=== PATIENT | male | born 1950 | race Caucasian/White ===

== ENCOUNTER 2017-08-27 13:28 | Emergency (ER) | payer OTHER, SELFPAY ==
[2017-08-27] VITALS (10 sets, daily range): BP systolic 119–150; BP diastolic 64–81; PULSE 62–68; RESP 12–18; TEMP 36.3; O2SAT 93–99; BMI 30.4
--- NOTE | 2017-08-27 13:53 | CT_ITS ---
STUDY: CT BRAIN WITHOUT CONTRAST REASON FOR EXAM: Male, 66 years old. One episode of transient global amnesia. History of hypertension. RADIATION DOSAGE (If Supplied By Facility): CTDIvol = ( 44.99 ) mGy, DLP = ( 812.98 ) mGycm TECHNIQUE: Transaxial CT imaging of the brain was performed without administration of intravenous contrast material. Individualized dose optimization techniques were used for this CT. COMPARISON: None. FINDINGS: Normal soft tissue structures. Normal calvarium. There is a 9 mm, ovoid, focus of CSF isoattenuation in the right posterior frontoparietal lobe adjacent to the lateral ventricle that appears most compatible with chronic lacunar infarct. Normal size ventricles and extra-axial spaces for the patient's age. Normal white matter tracts of the cerebral hemispheres. Normal basal ganglia and thalami. Normal brainstem. Normal cerebellum. There is no intracranial hemorrhage. There is no large vessel territory ischemia/edema. Normal visualized paranasal sinuses. CT/Brain/Head without Contrast IMPRESSION: No CT evident acute intracranial pathology. Electronically Signed: Isaias Bueno MD at 15:13 EDT , Service support ,
--- NOTE | 2017-08-27 13:53 | RAD_ITS ---
STUDY: X-RAY CHEST REASON FOR EXAM: Male, 66 years old. There are symptoms. No chest complaints. TECHNIQUE: Single AP chest. COMPARISON: None. FINDINGS: There are small foci of bibasilar mixed interstitial and alveolar opacification. There is no pleural effusion. There is no pneumothorax. Normal size heart. Normal mediastinum and michelle. Normal visualized pulmonary arteries. Normal visualized aortic arch and descending thoracic aorta. There is no evident acute osseous abnormality. There is no demonstrated abnormality of the visualized soft tissue structures of the upper abdomen. RAD/Chest 1 View IMPRESSION: Bibasilar atelectasis versus bronchovascular crowding secondary to small lung volumes. Electronically Signed: Isaias Bueno MD at 14:16 EDT , Service support ,
--- NOTE | 2017-08-27 13:53 | EKG12_ITS ---
Test Reason : NEURO Blood Pressure : / mmHG Vent. Rate : 061 BPM Atrial Rate : 061 BPM P-R Int : 178 ms QRS Dur : 090 ms QT Int : 424 ms P-R-T Axes : 058 -04 -15 degrees QTc Int : 426 ms Sinus rhythm with occasional Premature ventricular complexes Inferior infarct , age undetermined Abnormal ECG Confirmed by VINCE ANAYA ([id number]), tape editor CONSTANZA GIRARD ([id number]) on 08/31/2017 3:58:43 PM Referred By: ADELITA Confirmed By:VINCE ANAYA
[2017-08-27 14:28] LABS: Absolute Lymphocyte Count 1.11 X10^3/ul (0.83-4.51); Absolute Neutrophil Count 5.6 X10^3/uL (2.0-7.7); Basophil# 0.03 X10^3/uL; Basophil% 0.4 % (0-1); Eosinophil# 0.16 X10^3/uL; Eosinophils% 2.1 % (0-5); Hematocrit 51.5 % (40-54); Hemoglobin 17.3 g/dl (13.0-16.5); Lymphocyte # 1.11 X10^3/ul (4.0); Lymphocyte % 14.4 % (19-41); Mean Corp Hgb Conc 33.6 g/gl (32-36); Mean Corpuscular Hgb 31.9 pg (27.0-32.0); Mean Platelet Vol. 10.2 fl (6.2-12.0); Monocyte# 0.77 X10^3/uL; Neutrophil # 5.63 X10^3/uL (2.7-7.7); Neutrophil % 72.8 % (47-70); Platelet Count 194 K/mm3 (150-450); RBC Distribution Width SD 44.5 fl (35.1-43.9); Red Blood Count 5.42 M/mm3 (4.6-6.2); White Blood Count 7.7 K/mm3 (4.4-11.0)
[2017-08-27 14:29] LABS: Partial Thromboplast Time 26.5 Seconds (24.1-36.2); Prothrombin Time (Protime)PT. 13.2 SECONDS (11.7-14.9)
[2017-08-27 14:30] LABS: POSITIVE COUNT NO; POSITIVE DIFFERENTIAL NO; POSITIVE MORPHOLOGY NO
[2017-08-27 14:31] LABS: Anion Gap 4 (5-15); BUN 16 mg/dL (7-18); BUN/Creat Ratio 11.6 RATIO (10-20); Calcium,Total 9.5 mg/dL (8.5-10.1); Chloride 104 mmol/L (98-107); Creatinine, Serum 1.38 mg/dL (0.70-1.30); EST Glomerular Filtration Rate 55 mL/min (>60); Est Glom Filt Rate - Afr Amer 67 mL/min (>60); Estimated Creatinine Clearance 64.63 ml/min; Glucose 94 mg/dL (74-106); Sodium Level 139 mmol/L (136-145)
--- NOTE | 2017-08-27 15:47 | MRI_ITS ---
STUDY: MRI BRAIN WITHOUT CONTRAST REASON FOR EXAM: Male, 66 years old. Altered awareness TECHNIQUE: Standardized multiplanar fat and water weighted pulse sequences were obtained. COMPARISON: CT scan 08/27/2017. FINDINGS: Normal size of the ventricles and extra-axial spaces for the patient's age. There are a limited number of small white matter hyperintensities, distributed throughout the deep white matter tracts of the cerebral hemispheres, consistent with mild chronic white matter ischemic changes. There is no evidence for recent intracranial ischemia or other cause of cytotoxic edema on diffusion weighted imaging (DWI). There is a focal occlusion or infarct in the posterior right mckinnon radiata, 7 mm greatest dimension. Normal bilateral basal ganglia. Normal thalami. There is no extra-axial fluid accumulation. Normal flow voids within the major intracranial circulation suggesting patency by spin echo criteria. Normal sella turcica, pituitary gland, infundibular stalk, optic chiasm and hypothalamus. Normal tectal plate and pineal gland. Normal midbrain, mikey and medulla. Normal cerebellum. Normal basal cisterns. Normal bilateral temporal bones. Normal bilateral internal auditory canals. No demonstrated orbital abnormality, within the constraints of a routine brain study. Normal visualized paranasal sinuses. Normal calvarium and skull base. Normal visualized soft tissue structures. Normal visualized upper cervical spine. MRI/Brain without Contrast IMPRESSION: No acute abnormality. No acute infarction. Several small scattered areas of altered signal in the white matter consistent with areas of small vessel ischemic disease. Electronically Signed: Amol Santana MD at 18:10 EDT , Service support ,
--- NOTE | 2017-08-27 15:49 | CT_ITS ---
STUDY: CTA NECK WITH CONTRAST REASON FOR EXAM: Male, 66 years old. Confusion and amnesia. RADIATION DOSAGE (If Supplied By Facility): CTDIvol = ( ) mGy, DLP = ( ) mGycm TECHNIQUE: CT angiography with multi-detector data acquisition was performed from the aortic arch to the skull base following intravenous administration of 100 ml of Isovue 370 contrast. MIP images were reconstructed from the axial data set. Post-processing of the angiographic images was performed, with multiplanar reformation and 3D reconstruction. Individualized dose optimization techniques were used for this CT. COMPARISON: None. FINDINGS: AORTIC ARCH: Normal visualized aortic arch. Normal origins of the brachiocephalic, left common carotid, and left subclavian arteries. RIGHT CAROTID ARTERIES: Normal right common carotid artery (CCA). Normal right common carotid bulb. Normal origin of the right internal carotid (ICA) artery without a hemodynamically significant stenosis. Normal visualized cervical portion of the right internal carotid artery. Normal origin of the right external carotid artery (ECA). LEFT CAROTID ARTERIES: Normal left common carotid artery (CCA). Normal left common carotid bulb. Normal origin of the left internal carotid (ICA) artery without a hemodynamically significant stenosis. Normal visualized cervical portion of the left internal carotid artery. Normal origin of the left external carotid artery (ECA). VERTEBRAL ARTERIES: Normal bilateral vertebral arteries. CT/CTA Neck W/WO Contrast IMPRESSION: Normal bilateral cervical carotid and vertebral arteries. Electronically Signed: Amol Santana MD at 16:46 EDT , Service support ,
--- NOTE | 2017-08-27 15:49 | CT_ITS ---
STUDY: CTA OF THE BRAIN REASON FOR EXAM: Male, 66 years old. Confusion. Amnesia. RADIATION DOSAGE (If Supplied By Facility): CTDIvol = ( 19.21 ) mGy, DLP = ( 694.66 ) mGycm TECHNIQUE: CT angiography was performed with a multi-detector CT scanner. Data acquisition was obtained from the skull base through the vertex following intravenous administration of ml of . MIP images were reconstructed from the axial data set. Post-processing of the angiographic images was performed, with multiplanar reformation and 3D reconstruction. Individualized dose optimization techniques were used for this CT. COMPARISON: None. FINDINGS: Normal bilateral petrous carotid arteries. Normal right cavernous carotid artery with a normal supraclinoid bifurcation. Normal left cavernous carotid artery with a normal supraclinoid bifurcation. Normal right A1 segments of the anterior cerebral artery. Normal left A1 segments of the anterior cerebral artery. Normal intact anterior communicating artery (ACOM). Normal bilateral A2 segments of the anterior cerebral arteries. Normal right M1 and M2 segments of the middle cerebral arteries, with a normal M1 bifurcation. Normal left M1 and M2 segments of the middle cerebral arteries, with a normal M1 bifurcation. Normal right posterior communicating artery (PCOM). Normal left posterior communicating artery (PCOM). Normal bilateral vertebral arteries. Normal basilar artery with a normal basilar bifurcation. The visualized bilateral superior cerebellar (SCA) arteries are normal. Normal bilateral P1, P2 and visualized P3 segments of the posterior cerebral arteries. There is no demonstrated aneurysm of the [place]. There is no demonstrated abnormality of the visualized brain. CT/CTA Head W/WO Contrast IMPRESSION: Normal [place] without a demonstrated aneurysm or hemodynamically significant stenosis. Electronically Signed: Amol Santana MD at 16:45 EDT , Service support ,
--- NOTE | 2017-08-27 16:51 | ED.VISSUMM ---
- ER Visit Summary Date of Service: 08/27/17 Chief Complaint: Confusion History of Present Illness: The patient is a 66 M with a history of transient global amnesia about 12 years ago. He had a very similar episode today. After sexual intercourse he was confused and disoriented. He asked his what day it was. He did not know what his tasks were for today or tomorrow. He was unable to name the president. He did know who he was. Symptoms resolved over the course of about one half hours. Recent illness and the patient is currently without complaint. Physical Examination: Afebrile vitals are unremarkable NIH stroke scale is 0 he has no focal or lateralizing neurological deficits he is alert and oriented Heart regular rate and rhythm Lungs are clear Abdomen soft Test Results: EKG shows sinus rhythm at a rate of 61 with PVCs otherwise unremarkable. CBC BMP notable for creatinine 1.38. INR normal. Troponin negative. CT the head shows no acute pathology. CTA of the head and neck is normal. Chest x-ray shows some atelectasis. MRI of the brain currently pending. Emergency Department Course and Treatment: Patient's history and examination are suggestive of transient global amnesia. I spoke to neurology who asked that if we could obtain CTAs of the head and neck as well as MRI of the brain the patient could be discharged to follow-up as an outpatient and also have an outpatient EEG as transient global amnesia is a diagnosis of exclusion. Will be signed out to the oncoming physician to check MRI results. Treatment Plan: [] Disposition: Discharge pending normal MRI Impression: Transient global amnesia This note was generated with [employer] dictation software. It may contain incorrect words, spelling, and punctuation that were not noted in review of the chart prior to signing ED Disposition - Plan for ED Patient: Chief Complaint: Neuro S/Sx Referrals: Yony Branch MD [Primary Care Provider] -
--- NOTE | 2017-08-27 17:01 | ED.DEP ---
ED Disposition - Plan for ED Patient: Chief Complaint: Neuro S/Sx Referrals: Yony Branch MD [Primary Care Provider] - Benny Madrid MD [STAFF PHYSICIAN] -
--- NOTE | 2017-08-27 18:57 | ED.VISSUMM ---
- ER Visit Summary Date of Service: 08/27/17 Chief Complaint: [] History of Present Illness: The patient is a 66 M [] Physical Examination: [] Test Results: [] Emergency Department Course and Treatment: [] Treatment Plan: [] Disposition: [] Impression: [] This note was generated with [employer] dictation software. It may contain incorrect words, spelling, and punctuation that were not noted in review of the chart prior to signing ED Disposition - Plan for ED Patient: Chief Complaint: Neuro S/Sx Instructions: ED Confusion Referrals: Yony Branch MD [Primary Care Provider] - Benny Madrid MD [STAFF PHYSICIAN] -
== END 2017-08-27 19:06 | disposition home or self-care (01) ==
PROVIDERS: Emergency Provider Emergency Medicine; Family Provider Family Medicine; PCP Family Medicine
DX: G45.4 Transient global amnesia (principal); I49.3 Ventricular premature depolarization; I10 Essential (primary) hypertension; Z79.82 Long term (current) use of aspirin
CPT/HCPCS: 70450; 70496; 70498; 70551; 71045; 80048; 84484; 85025; 85610; 85730; 93005; 99284; Q9967; A4216

== ENCOUNTER → 2017-10-22 11:56 | Outpatient (CLI) | payer MEDICARE, OTHER, SELFPAY ==
[2017-10-22 15:37] LABS: Absolute Lymphocyte Count 1.54 X10^3/ul (0.83-4.51); Absolute Neutrophil Count 10.9 X10^3/uL (2.0-7.7); Basophil# 0.02 X10^3/uL; Basophil% 0.1 % (0-1); Eosinophil# 0.23 X10^3/uL; Eosinophils% 1.6 % (0-5); Hematocrit 49.8 % (40-54); Hemoglobin 16.2 g/dl (13.0-16.5); Lymphocyte # 1.54 X10^3/ul (4.0); Lymphocyte % 10.9 % (19-41); Mean Corp Hgb Conc 32.5 g/gl (32-36); Mean Corpuscular Hgb 30.9 pg (27.0-32.0); Mean Platelet Vol. 9.9 fl (6.2-12.0); Monocyte# 1.38 X10^3/uL; Monocyte% 9.8 % (0-10); Neutrophil # 10.88 X10^3/uL (2.7-7.7); Neutrophil % 77.2 % (47-70); Platelet Count 275 K/mm3 (150-450); RBC Distribution Width CV 12.7 % (11.6-14.6); RBC Distribution Width SD 43.9 fl (35.1-43.9); Red Blood Count 5.24 M/mm3 (4.6-6.2); White Blood Count 14.1 K/mm3 (4.4-11.0)
[2017-10-22 15:40] LABS: POSITIVE COUNT NO; POSITIVE DIFFERENTIAL NO; POSITIVE MORPHOLOGY NO
[2017-10-22 16:30] LABS: ALB/GLOB Ratio 0.7 RATIO (0.9-2.4); AST(SGOT) 19 U/L (15-37); Alanine Aminotransfer ALT/SGPT 26 U/L (16-61); Albumin, Serum 3.4 g/dL (3.2-5.0); Alkaline Phosphatase 71 U/L (45-117); Anion Gap 8 (5-15); BUN 17 mg/dL (7-18); BUN/Creat Ratio 12.7 RATIO (10-20); Calcium,Total 9.5 mg/dL (8.5-10.1); Chloride 102 mmol/L (98-107); Creatinine, Serum 1.34 mg/dL (0.70-1.30); EST Glomerular Filtration Rate 57 mL/min (>60); Est Glom Filt Rate - Afr Amer 69 mL/min (>60); Globulin 4.7 g/dL (2.2-4.2); Glucose 84 mg/dL (74-106); Potassium 4.3 mmol/L (3.5-5.1); Protein, Total 8.1 g/dL (6.4-8.2); Sodium Level 139 mmol/L (136-145)
== END ==
PROVIDERS: Family Provider Family Medicine; PCP Family Medicine; Visit Provider Family Medicine
DX: N39.0 Urinary tract infection, site not specified (principal); E53.8 Deficiency of other specified B group vitamins; E53.1 Pyridoxine deficiency; Z12.5 Encounter for screening for malignant neoplasm of prostate
CPT/HCPCS: 36415; 80053; 82746; 84153; 85025; 87086; G0103

== ENCOUNTER → 2017-10-22 16:43 | Outpatient (CLI) | payer MEDICARE, OTHER, SELFPAY | PROVIDERS: Family Provider Family Medicine; PCP Family Medicine; Visit Provider Family Medicine | DX: N39.0 Urinary tract infection, site not specified (principal) | CPT/HCPCS: 87086 ==

== ENCOUNTER → 2017-12-09 09:41 | Outpatient (CLI) | payer MEDICARE, OTHER, SELFPAY | PROVIDERS: Family Provider Family Medicine; PCP Family Medicine; Visit Provider Nurse Practitioner Adult Health | DX: R97.20 Elevated prostate specific antigen [PSA] (principal) | CPT/HCPCS: 36415; 84153 ==

== ENCOUNTER → 2018-02-15 11:00 | Outpatient (CLI) | payer MEDICARE, SELFPAY ==
[2018-02-15 13:55] LABS: Absolute Lymphocyte Count 1.17 X10^3/ul (0.83-4.51); Absolute Neutrophil Count 3.3 X10^3/uL (2.0-7.7); Basophil# 0.01 X10^3/uL; Basophil% 0.2 % (0-1); Eosinophil# 0.15 X10^3/uL; Eosinophils% 2.9 % (0-5); Hematocrit 52.2 % (40-54); Hemoglobin 16.9 g/dl (13.0-16.5); Lymphocyte # 1.17 X10^3/ul (4.0); Lymphocyte % 22.8 % (19-41); Mean Corp Hgb Conc 32.4 g/gl (32-36); Mean Corpuscular Hgb 30.5 pg (27.0-32.0); Mean Corpuscular Volume 94.1 fL (80-94); Mean Platelet Vol. 11.1 fl (6.2-12.0); Monocyte# 0.55 X10^3/uL; Monocyte% 10.7 % (0-10); Neutrophil # 3.25 X10^3/uL (2.7-7.7); Neutrophil % 63.2 % (47-70); Platelet Count 181 K/mm3 (150-450); RBC Distribution Width CV 13.3 % (11.6-14.6); RBC Distribution Width SD 44.9 fl (35.1-43.9); Red Blood Count 5.55 M/mm3 (4.6-6.2); White Blood Count 5.1 K/mm3 (4.4-11.0)
[2018-02-15 13:58] LABS: POSITIVE COUNT NO; POSITIVE DIFFERENTIAL NO; POSITIVE MORPHOLOGY NO
[2018-02-15 14:18] LABS: Vitamin B12 447 pg/mL (211-911); Vitamin D,25 Hydroxy 33.2 ng/mL (29.95-100.01)
[2018-02-15 14:50] LABS: ALB/GLOB Ratio 0.9 RATIO (0.9-2.4); AST(SGOT) 21 U/L (15-37); Alanine Aminotransfer ALT/SGPT 31 U/L (16-61); Albumin, Serum 3.7 g/dL (3.2-5.0); Alkaline Phosphatase 66 U/L (45-117); Anion Gap 8 (5-15); BUN 17 mg/dL (7-18); BUN/Creat Ratio 13.5 RATIO (10-20); Calcium,Total 9.7 mg/dL (8.5-10.1); Chloride 104 mmol/L (98-107); Creatinine, Serum 1.26 mg/dL (0.70-1.30); EST Glomerular Filtration Rate 61 mL/min (>60); Est Glom Filt Rate - Afr Amer 74 mL/min (>60); Glucose 82 mg/dL (74-106); Potassium 4.1 mmol/L (3.5-5.1); Protein, Total 7.7 g/dL (6.4-8.2); Sodium Level 142 mmol/L (136-145)
[2018-02-20 07:34] LABS: Vitamin B1, Thiamine 121.2 nmol/L (66.5-200.0)
== END ==
PROVIDERS: Family Provider Family Medicine; PCP Family Medicine; Visit Provider Family Medicine
DX: I10 Essential (primary) hypertension (principal); G62.9 Polyneuropathy, unspecified; E53.8 Deficiency of other specified B group vitamins; E55.9 Vitamin D deficiency, unspecified
CPT/HCPCS: 36415; 80053; 82306; 82607; 82746; 84425; 85025

== ENCOUNTER → 2018-03-10 09:43 | Outpatient (CLI) | payer MEDICARE, SELFPAY ==
[2018-03-10 13:34] LABS: PSA,Total- Diagnostic 2.65 ng/mL (0.0-4.0)
== END ==
PROVIDERS: Family Provider Family Medicine; PCP Family Medicine; Visit Provider Nurse Practitioner Adult Health
DX: R97.20 Elevated prostate specific antigen [PSA] (principal)
CPT/HCPCS: 36415; 84153

== ENCOUNTER → 2018-07-06 08:17 | Outpatient (CLI) | payer MEDICARE, SELFPAY ==
[2018-07-06 10:47] LABS: Vitamin B12 498 pg/mL (211-911)
[2018-07-06 11:27] LABS: AST(SGOT) 22 U/L (15-37); Alanine Aminotransfer ALT/SGPT 30 U/L (16-61); Albumin, Serum 3.8 g/dL (3.2-5.0); Alkaline Phosphatase 72 U/L (45-117); Anion Gap 8 (5-15); BUN 16 mg/dL (7-18); BUN/Creat Ratio 12.6 RATIO (10-20); Calcium,Total 9.4 mg/dL (8.5-10.1); Chloride 106 mmol/L (98-107); Creatinine, Serum 1.27 mg/dL (0.70-1.30); EST Glomerular Filtration Rate 60 mL/min (>60); Est Glom Filt Rate - Afr Amer 73 mL/min (>60); Globulin 3.7 g/dL (2.2-4.2); Glucose 90 mg/dL (74-106); Protein, Total 7.5 g/dL (6.4-8.2); Sodium Level 141 mmol/L (136-145)
[2018-07-11 09:07] LABS: Vitamin B1, Thiamine 158.6 nmol/L (66.5-200.0)
== END ==
PROVIDERS: Family Provider Family Medicine; PCP Family Medicine; Referring Provider Family Medicine; Visit Provider Family Medicine
DX: E53.1 Pyridoxine deficiency (principal); I10 Essential (primary) hypertension; E53.8 Deficiency of other specified B group vitamins; G62.9 Polyneuropathy, unspecified
CPT/HCPCS: 36415; 80053; 82607; 82746; 84425

== ENCOUNTER → 2018-07-07 15:03 | Outpatient (CLI) | payer MEDICARE, OTHER, SELFPAY ==
[2018-07-07 17:00] LABS: Thyroid Stim Hormone (TSH) 1.16 uIU/mL (0.358-3.74)
[2018-07-07 17:12] LABS: Vitamin B12 353 pg/mL (211-911)
== END ==
PROVIDERS: Family Provider Family Medicine; PCP Family Medicine; Referring Provider Psychiatry & Neurology Neurology; Visit Provider Psychiatry & Neurology Neurology
DX: G40.909 Epilepsy, unspecified, not intractable, without status epilepticus (principal); Z79.899 Other long term (current) drug therapy
CPT/HCPCS: 36415; 82607; 84443; 86140

== ENCOUNTER → 2018-07-22 10:47 | Outpatient (CLI) | payer MEDICARE, OTHER, SELFPAY ==
[2018-07-22 13:07] LABS: Anion Gap 8 (5-15); BUN 15 mg/dL (7-18); BUN/Creat Ratio 12.7 RATIO (10-20); Calcium,Total 9.3 mg/dL (8.5-10.1); Chloride 101 mmol/L (98-107); Creatinine, Serum 1.18 mg/dL (0.70-1.30); EST Glomerular Filtration Rate 66 mL/min (>60); Est Glom Filt Rate - Afr Amer 80 mL/min (>60); Glucose 66 mg/dL (74-106); Potassium 4.3 mmol/L (3.5-5.1); Sodium Level 139 mmol/L (136-145)
== END ==
PROVIDERS: Family Provider Family Medicine; PCP Family Medicine; Referring Provider Family Medicine; Visit Provider Family Medicine
DX: R94.4 Abnormal results of kidney function studies (principal)
CPT/HCPCS: 36415; 80048

== ENCOUNTER 2018-11-12 11:17 | Inpatient (IN) | payer MEDICARE, OTHER, SELFPAY ==
[2018-11-12 11:18] VITALS: BP 137/88; PULSE 68; RESP 18; TEMP 36.6; O2SAT 98; BMI 30.2
--- NOTE | 2018-11-12 11:38 | CT_ITS ---
STUDY: CT ORBITS WITH CONTRAST REASON FOR EXAM: Male, 68 years old. BILAT EYE CELLULITIS, ATB NOT WORKING. RADIATION DOSAGE (If Supplied By Facility): CTDIvol = ( 29.38 ) mGy, DLP = ( 422.57 ) mGycm TECHNIQUE: The patient was scanned in a multi detector CT scanner. Transaxial imaging was performed following the intravenous administration of 100ML IV Isovue 300. Sagittal and coronal images were reconstructed. Individualized dose optimization techniques were used for this CT. COMPARISON: None. FINDINGS: There is bilateral periorbital soft tissue swelling. There are no discrete fluid collections. There is no evidence of postseptal infiltration. Normal globes. Normal intraconal spaces. Normal optic nerve sheath complex. Normal bilateral extraocular muscles. The sinuses are clear. CT/Orb Sella Post Fossa Ear W/CON IMPRESSION: Periorbital cellulitis. Electronically Signed: Qiana Johnson MD at 12:59 EDT Tel , Service support ,
--- NOTE | 2018-11-12 11:39 | ED.VIS.GEN ---
History of Present Illness Chief Complaint: Cellulitis Informant: Patient Onset: Days - 4 Timing: Continuous Current Severity: Moderate Maximum Severity: Moderate Narrative: Patient presents with bilateral periorbital redness he is on second antibiotic in the past 4 days. He is not improving, it started on the left side and now moved to the right side. He has no pain with movement of the eyes. There is no fever chills, he denies any current headache, he denies any sore throat. No chest pain shortness of breath. He does not have a history of being immunocompromised. Past Medical History - Allergies and Home Meds Allergies/Adverse Reactions: Allergies Penicillins Allergy (Verified 11/12/18 11:21) Unknown Past Medical History: - - Hypertension, eczema Lives: Spouse/ Significant Other Smoking Status: Never smoker Review of Systems All systems negative except as indicated General: Denies: Chills, Fever, Sweats Eyes: Denies: Visual changes - bilaterally, Diplopia - Periorbital edema as in HPI ENT: Denies: Rhinorrhea, Sore throat Cardiovascular: Denies: Chest pain, Palpitations Respiratory: Denies: Dyspnea, Cough, Dyspnea on exertion Gastrointestinal: Denies: Abdominal pain, Nausea, Vomiting, Diarrhea, Melena, Hematochezia Genitourinary: Denies: Dysuria, Hematuria, Frequency Musculoskeletal: Denies: Back pain, Extremity Pain Skin: Reports: Rash. Denies: Wounds Neurological: Denies: Headache, Weakness, Numbness Physical Exam Vital Signs/Narrative: Vital Signs Temp Pulse Resp BP Pulse Ox 11/12/18 11:18 98 F 68 18 137/88 H 98 General: Well nourished, Well developed Head: Normocephalic Eyes: - - Patient has full range of motion of both eyes without any pain. He has periorbital erythema, increased Calor ENT: Moist mucous membranes, No rhinorrhea Neck: Supple Cardiovascular: Regular rate Respiratory: No distress, CTA bilaterally Abdomen: Soft, Nontender Back: Nontender Extremities: Nontender Skin: - - Periorbital cellulitis as above Neurological: Alert, Cranial nerves II-XII grossly intact, Normal Strength, Normal Sensation Diagnostic/Tx/Re-eval - Medical Decision Making Patient has periorbital cellulitis that is failing outpatient antibiotics. He has no evidence of orbital cellulitis. He does not have any criteria for surgery. I will admit him medically. Vancomycin was started. Admit stable condition ED Disposition - Plan for ED Patient: Diagnosis: Cellulitis of periorbital region of both eyes
[2018-11-12 11:56] VITALS: BP 132/66; PULSE 60; RESP 16; TEMP 36.9; O2SAT 94
[2018-11-12 11:57] LABS: Absolute Lymphocyte Count 1.37 X10^3/ul (0.83-4.51); Absolute Neutrophil Count 4.1 X10^3/uL (2.0-7.7); Basophil# 0.02 X10^3/uL; Basophil% 0.3 % (0-1); Eosinophil# 0.31 X10^3/uL; Eosinophils% 4.7 % (0-5); Hematocrit 49.8 % (40-54); Hemoglobin 16.8 g/dl (13.0-16.5); Lymphocyte # 1.37 X10^3/ul (4.0); Lymphocyte % 20.7 % (19-41); Mean Corp Hgb Conc 33.7 g/gl (32-36); Mean Corpuscular Hgb 30.1 pg (27.0-32.0); Mean Corpuscular Volume 89.2 fL (80-94); Monocyte# 0.77 X10^3/uL; Monocyte% 11.6 % (0-10); Neutrophil # 4.12 X10^3/uL (2.7-7.7); Neutrophil % 62.4 % (47-70); Platelet Count 193 K/mm3 (150-450); RBC Distribution Width CV 14.1 % (11.6-14.6); RBC Distribution Width SD 46.3 fl (35.1-43.9); Red Blood Count 5.58 M/mm3 (4.6-6.2); White Blood Count 6.6 K/mm3 (4.4-11.0)
[2018-11-12 11:58] LABS: POSITIVE COUNT NO; POSITIVE DIFFERENTIAL NO; POSITIVE MORPHOLOGY NO
[2018-11-12 12:09] LABS: AST(SGOT) 17 U/L (15-37); Alanine Aminotransfer ALT/SGPT 29 U/L (16-61); Albumin, Serum 3.8 g/dL (3.2-5.0); Alkaline Phosphatase 69 U/L (45-117); Anion Gap 4 (5-15); BUN 17 mg/dL (7-18); Calcium,Total 9.2 mg/dL (8.5-10.1); Chloride 107 mmol/L (98-107); Creatinine, Serum 1.42 mg/dL (0.70-1.30); EST Glomerular Filtration Rate 53 mL/min (>60); Est Glom Filt Rate - Afr Amer 64 mL/min (>60); Estimated Creatinine Clearance 61.16 ml/min; Globulin 3.9 g/dL (2.2-4.2); Glucose 88 mg/dL (74-106); Potassium 4.1 mmol/L (3.5-5.1); Protein, Total 7.7 g/dL (6.4-8.2); Sodium Level 140 mmol/L (136-145)
--- NOTE | 2018-11-12 14:17 | HP.PCM_ITS ---
History of Present Illness Date of Admission: 11/12/18 Chief Complaint: periorbital swelling and redness The patient is a 68 year old M with a past medical history of hypertension. He was admitted through the ED on 11/12/2018 with a complaint of redness and swelling around both eyes for the past few days. Patient states a few days ago, he noted a boil around his left eye. He went to his PCP and was started on p.o. doxycycline. However he suddenly had significant redness and swelling around his left eye which by yesterday had progressed to around his right eye as well. He did have any defects in his vision but also noted that he was having puslike discharge from his left eye. He denied any redness of his eyes. He denied any trauma and denied picking the ball they had noted on his left eye. He had gone back to his PCP when symptoms were not improving he was started on Bactrim at that time. However symptoms were not resolving so he decided to come into the ED today. He had similar left eye periorbital cellulitis a few months ago which responded to outpatient antibiotic therapy. He denied any fever or chills, palpitations or dizziness, nausea, vomiting or diarrhea. In the ED, he was afebrile and vitals were stable. CBC showed no leukocytosis and BMP was remarkable for creatinine of 1.42. CT of the orbits showed bilateral periorbital soft tissue swelling with no discrete fluid collection and no evidence of post septal infiltration. He has been admitted to be managed for bilateral periorbital cellulitis with failed outpatient therapy. [] Past Medical History Allergies Penicillins Allergy (Verified 11/12/18 11:21) Unknown Home Medications: Ambulatory Orders Medication Instructions Recorded Aspirin [Aspirin, Baby] 81 mg PO DAILY@0800 08/27/17 Diltiazem HCl [Cartia Xt] 240 mg PO DAILY 11/12/18 Folic Acid 0.8 mg PO DAILY 11/12/18 Lisinopril [Zestril] 10 mg PO DAILY 11/12/18 Pyridoxine HCl [Vitamin B-6] 100 mg PO DAILY 11/12/18 Vitamin E 400 unit PO DAILY 11/12/18 Surgical History: no surgical history Psychiatric History: No pertinent psych hx Lives: Spouse/ Significant Other Smoking Status: Never smoker Tobacco Use: Non-smoker Alcohol: None Drugs: None - *Family History Maternal History Items: No pertinent history Review of Systems Constitutional: Denies: Chills, Fever, Malaise, Weakness, Weight Change, Fatigue Eyes: Reports: Drainage, Eyelid Inflammation, Redness. Denies: Blurred vision, Double vision, Pain, Vision Change HEENT: Reports: Difficulty Hearing Cardiovascular: Denies: Chest Pain, Palpitations Respiratory: Denies: Cough, Shortness of breath at rest, Sputum production Gastrointestinal: Denies: Abdominal Pain, Nausea, Vomiting Genitourinary: Denies: Dysuria Musculoskeletal: Denies: Joint Pain, Joint Tenderness Skin: Reports: Skin Changes - redness and swelling around his eyes Neurological: Denies: Numbness, Tingling, Focal weakness Psychiatric: Denies: Anxiety, Depression, Homicidal Ideations, Suicidal Ideations Hematologic/ Lymphatic: Denies: Easy Bruising, Easy Bleeding VTE Information - Inpt Only VTE Present on Admission: No VTE Pharm Prophylaxis ordered?: Yes Patient Problems: Active and Suspected Problems Cellulitis of periorbital region of both eyes (Acute) - Physical Exam General: Alert, Oriented x3, Cooperative, No apparent distress HEENT: PERRLA, EOMI Oral: Moist Mucosa Neck: Supple, No JVD, Negative Carotid Bruits Lungs: Clear to auscultation, Normal air movement, No rhonchi, No wheeze Cardiovascular: Regular rate, Regular Rhythm, Normal S1, Normal S2, No murmurs Abdomen: Bowel Sounds Present, Soft, Non Tender, Non-Distended, No Hepato- splenomegaly Extremities: No clubbing, No cyanosis, No edema, Capillary Refill Less than 3 Seconds Skin: - - bilateral periorbital redness and swelling, with discharge from left eye. Blisters over left eye. EYe movements intact Musculoskeletal: No Tenderness to Palpation of Joints or Extremities Lymphatic: No Cervical, Supraclavicular, or Inguinal Adenopathy Neurological: Cranial nerves II-XII grossly intact, Neuro grossly intact, Motor Exam 5/5 strength throughout Psych/Mental Status: Normal Affect, Appropriate, Alert and oriented to time, place, person, mood and affect Vital Signs Temp Pulse Resp BP Pulse Ox 98.4 F 60 16 132/66 H 94 11/12/18 11:56 11/12/18 11:56 11/12/18 11:56 11/12/18 11:56 11/12/18 11:56 Oxygen Delivery Method Room Air Weight: 242 lb Body Mass Index (BMI) 30.2 Laboratory Tests Past 24 Hrs 11/12/18 11/12/18 11:45 11:45 WBC 6.6 RBC 5.58 Hgb 16.8 H Hct 49.8 MCV 89.2 MCH 30.1 MCHC 33.7 RDW 14.1 RDW Differential 46.3 H Plt Count 193 MPV 10.0 Immature Gran % (Auto) 0.300 Neut % (Auto) 62.4 Lymph % (Auto) 20.7 [place]ier % (Auto) 11.6 H Eos % (Auto) 4.7 Baso % (Auto) 0.3 Absolute Neuts (auto) 4.1 Absolute Lymphs (auto) 1.37 Total Counted Not Reportable Sodium 140 Potassium 4.1 Chloride 107 Carbon Dioxide 29.0 Anion Gap 4 L BUN 17 Creatinine 1.42 H Estim Creat Clear Calc 61.16 Est GFR (MDRD) Af Amer 64 Est GFR (MDRD) Non-Af 53 L BUN/Creatinine Ratio 12.0 Glucose 88 Calcium 9.2 Total Bilirubin 0.30 AST 17 ALT 29 Alkaline Phosphatase 69 Total Protein 7.7 Albumin 3.8 Globulin 3.9 Albumin/Globulin Ratio 1.[address] Orbit Sella Inner 11/12/18 11:38 IMPRESSION: Periorbital cellulitis. Electronically Signed: Qiana Johnson MD at 12:59 EDT Tel , Service support , Assessment/Plan All Active Problems Cellulitis of periorbital region of both eyes (Acute) [age]-year-old male admitted with a complaint of redness and swelling 1. Bilateral preseptal cellulitis * failed outpatient therapy 2x * admit to med surg * no leucocytosis, no fever or chills * started on IV vancomycin in the ED; will continue * get blood cultures and eye swab cultures as he has drainage from left eye * tylenol for pain and fever * CT orbits was negative for any orbital involvement * 2.Elevated Cr: Cr is 1.42. baseline is ~ 1.1. Doesnt meet criteria for BRUCE. WIll hydrate and monitor 3. Hypertension: on lisinopril and cardizem DVT prophylaxis; lovenox Code Visit Inpatient E&M: 29039 Init Hosp L3
--- NOTE | 2018-11-12 15:39 | PCM.RX.CS ---
Consult Pharmacy has been consulted to manage selected antiobiotic: Vancomycin Type of Consult: New start Suspected Infection: Skin/Soft tissue Prior Doses of Antibiotics Received/Current Regimen: VANCOMYCIN 1500MG IV X1 IN ED 11/12 @1235 Labs: Sodium 140 mmol/L (136-145) 11/12/18 11:45 Potassium 4.1 mmol/L (3.5-5.1) 11/12/18 11:45 Chloride 107 mmol/L (98-107) 11/12/18 11:45 Carbon Dioxide 29.0 mmol/L (21.0-32.0) 11/12/18 11:45 4 (5-15) L 11/12/18 11:45 BUN 17 mg/dL (7-18) 11/12/18 11:45 1.42 mg/dL (0.70-1.30) H 11/12/18 11:45 Est GFR (MDRD) Af Amer 64 mL/min (>60) 11/12/18 11:45 Est GFR (MDRD) Non-Af 53 mL/min (>60) L 11/12/18 11:45 12.0 RATIO (10-20) 11/12/18 11:45 Glucose 88 mg/dL (74-106) 11/12/18 11:45 Weight used for dosin.7 kg Estimated Creatinine Clearance: 61ML/MIN Goal Trough: 15-20 mcg/mL Pharmacy Plan for Drug Dosing: PLAN/RECOMMENDATIONS 1. Vancomycin 1500mg IV Q12hrs to start 11/13/18 @0030 2. Trough scheduled prior o the 4th total dose per protocol 11/14/18 @0000 3. Pharmacy Service will continue to monitor and adjust dosing as required.
[2018-11-12 15:45] VITALS: BP 123/64; PULSE 52; RESP 16; TEMP 36.7; O2SAT 97; BMI 30.2
[2018-11-12 20:11] VITALS: BP 122/66; PULSE 51; RESP 16; TEMP 36.6; O2SAT 96
[2018-11-13 03:15] VITALS: BP 124/65; PULSE 51; RESP 16; TEMP 36.6; O2SAT 96
[2018-11-13 06:22] LABS: Absolute Lymphocyte Count 1.37 X10^3/ul (0.83-4.51); Absolute Neutrophil Count 4.1 X10^3/uL (2.0-7.7); Basophil# 0.02 X10^3/uL; Basophil% 0.3 % (0-1); Eosinophil# 0.39 X10^3/uL; Eosinophils% 5.8 % (0-5); Hemoglobin 16.4 g/dl (13.0-16.5); Lymphocyte # 1.37 X10^3/ul (4.0); Lymphocyte % 20.5 % (19-41); Mean Corp Hgb Conc 32.8 g/gl (32-36); Mean Corpuscular Hgb 29.8 pg (27.0-32.0); Mean Corpuscular Volume 90.7 fL (80-94); Mean Platelet Vol. 10.4 fl (6.2-12.0); Monocyte# 0.82 X10^3/uL; Monocyte% 12.3 % (0-10); Neutrophil # 4.05 X10^3/uL (2.7-7.7); Neutrophil % 60.8 % (47-70); Platelet Count 199 K/mm3 (150-450); RBC Distribution Width CV 14.3 % (11.6-14.6); RBC Distribution Width SD 47.3 fl (35.1-43.9); Red Blood Count 5.51 M/mm3 (4.6-6.2); White Blood Count 6.7 K/mm3 (4.4-11.0)
[2018-11-13 06:25] LABS: POSITIVE COUNT NO; POSITIVE DIFFERENTIAL NO; POSITIVE MORPHOLOGY NO
[2018-11-13 06:38] LABS: Anion Gap 5 (5-15); BUN 16 mg/dL (7-18); BUN/Creat Ratio 11.8 RATIO (10-20); Calcium,Total 9.2 mg/dL (8.5-10.1); Chloride 108 mmol/L (98-107); Creatinine, Serum 1.36 mg/dL (0.70-1.30); EST Glomerular Filtration Rate 56 mL/min (>60); Est Glom Filt Rate - Afr Amer 67 mL/min (>60); Estimated Creatinine Clearance 63.86 ml/min; Glucose 82 mg/dL (74-106); Potassium 4.5 mmol/L (3.5-5.1); Sodium Level 143 mmol/L (136-145)
[2018-11-13 08:13] VITALS: BP 128/65; PULSE 61; RESP 18; TEMP 36.5; O2SAT 97
[2018-11-13] MEDS: Folic Acid 1 MG Tablet PO (08:18)
[2018-11-13] MEDS: Aspirin 81 MG TAB.CHEW PO (08:18)
--- NOTE | 2018-11-13 08:30 | PCM.PN.HOSP ---
Patient Problems: Active and Suspected Problems Cellulitis of periorbital region of both eyes (Acute) Subjective: Patient seen and examined. He complains of some discharge from his left eye today. He denies any fever, chills, palpitations or dizziness, diarrhea or vomiting. Review of systems is otherwise negative. Labs and vitals reviewed. Vitals/I&O's: Vital Signs Temp Pulse Resp BP Pulse Ox 97.7 F L 61 18 128/65 H 97 11/13/18 08:13 11/13/18 08:13 11/13/18 08:13 11/13/18 08:13 11/13/18 08:13 Oxygen Delivery Method Room Air Weight: 241 lb 10.026 oz Body Mass Index (BMI) 30.2 Intake and Output for Last 24 Hours 11/11/18 11/12/18 11/13/18 23:59 23:59 23:59 Intake Total 500 / 500 Balance 500 / 500 General: Alert, Oriented x3, Cooperative, No apparent distress HEENT: PERRLA, EOMI Oral: Moist Mucosa Neck: Supple, No JVD, Negative Carotid Bruits Lungs: Clear to auscultation, Normal air movement, No rhonchi, No wheeze Cardiovascular: Regular rate, Regular Rhythm, Normal S1, Normal S2, No murmurs Abdomen: Bowel Sounds Present, Soft, Non Tender, Non-Distended, No Hepato-splenomegaly Extremities: No clubbing, No cyanosis, No edema, Capillary Refill Less than 3 Seconds Skin: - - bilateral periorbital redness and swelling have improved minimally. Blisters over left eye have improved, with some honey colored crusting. EYe movements intact Musculoskeletal: No Tenderness to Palpation of Joints or Extremities Lymphatic: No Cervical, Supraclavicular, or Inguinal Adenopathy Neurological: Cranial nerves II-XII grossly intact, Neuro grossly intact, Motor Exam 5/5 strength throughout Psych/Mental Status: Normal Affect, Appropriate, Alert and oriented to time, place, person, mood and affect Laboratory Results 11/12/18 11:45: WBC 6.6, RBC 5.58, Hgb 16.8 H, Hct 49.8, MCV 89.2, MCH 30.1, MCHC 33.7, RDW 14.1, RDW Differential 46.3 H, Plt Count 193, MPV 10.0, Immature Gran % (Auto) 0.300, Neut % (Auto) 62.4, Lymph % (Auto) 20.7, [place] % (Auto) 11.6 H, Eos % (Auto) 4.7, Baso % (Auto) 0.3, Absolute Neuts (auto) 4.1, Absolute Lymphs (auto) 1.37, Total Counted Not Reportable 11/12/18 11:45: Sodium 140, Potassium 4.1, Chloride 107, Carbon Dioxide 29.0, Anion Gap 4 L, BUN 17, Creatinine 1.42 H, Estim Creat Clear Calc 61.16, Est GFR (MDRD) Af Amer 64, Est GFR (MDRD) Non-Af 53 L, BUN/Creatinine Ratio 12.0, Glucose 88, Calcium 9.2, Total Bilirubin 0.30, AST 17, ALT 29, Alkaline Phosphatase 69, Total Protein 7.7, Albumin 3.8, Globulin 3.9, Albumin/Globulin Ratio 1.0 11/13/18 05:15: WBC 6.7, RBC 5.51, Hgb 16.4, Hct 50.0, MCV 90.7, MCH 29.8, MCHC 32.8, RDW 14.3, RDW Differential 47.3 H, Plt Count 199, MPV 10.4, Immature Gran % (Auto) 0.300, Neut % (Auto) 60.8, Lymph % (Auto) 20.5, [place] % (Auto) 12.3 H, Eos % (Auto) 5.8 H, Baso % (Auto) 0.3, Absolute Neuts (auto) 4.1, Absolute Lymphs (auto) 1.37, Total Counted Not Reportable 11/13/18 05:15: Sodium 143, Potassium 4.5, Chloride 108 H, Carbon Dioxide 30.0, Anion Gap 5, BUN 16, Creatinine 1.36 H, Estim Creat Clear Calc 63.86, Est GFR (MDRD) Af Amer 67, Est GFR (MDRD) Non-Af 56 L, BUN/Creatinine Ratio 11.8, Glucose 82, Calcium 9.[address] Orbit Sella Inner 11/12/18 11:38 IMPRESSION: Periorbital cellulitis. Electronically Signed: Qiana Johnson MD at 12:59 EDT Tel , Service support , Current Medications Aspirin (Aspirin, Baby) 81 mg PO DAILY@0800 [facility] Last Admin: 11/13/18 08:18 Dose: 81 mg Documented by: Dextrose (D50w Syringe) 0 gm IV X1 PRN; Protocol PRN Reason: Hypoglycemia Diltiazem HCl (Cardizem Cd) 240 mg PO DAILY [facility] Enoxaparin Sodium (Lovenox) 40 mg SC DAILY@1000 [facility] Folic Acid (Folic Acid) 1 mg PO DAILY@0800 [facility] Last Admin: 11/13/18 08:18 Dose: 1 mg Documented by: Glucagon () 1 mg IM .X1 PRN PRN Reason: Hypoglycemia Vancomycin IV Pharmacy to Dose (1 ea/ Sodium Chloride) 500 mls @ 250 mls/hr IV PRN PRN; Protocol PRN Reason: Rx to Dose Vancomycin HCl 1,500 mg/ (Sodium Chloride) 530 mls @ 250 mls/hr IV Q12H [facility] Last Admin: 11/13/18 00:41 Dose: 250 mls/hr Documented by: Lisinopril (Zestril) 10 mg PO DAILY [facility] Pyridoxine HCl (Vitamin B-6) 100 mg PO DAILY [facility] Sodium Chloride () 10 - 40 ml IV UD PRN PRN Reason: SALINE FLUSH Vitamin E (Vitamin E) 400 units PO DAILY [facility] Medical Necessity - Tobacco Use Smoking Status: Never smoker Tobacco Use: Non-smoker Assessment/Plan All Active Problems Cellulitis of periorbital region of both eyes (Acute) [age]-year-old male admitted with a complaint of redness and swelling 1. Bilateral preseptal cellulitis failed outpatient therapy 2x admit to med surg no leucocytosis, no fever or chills on IV vancomycin blood cultures pending. will get eye discharge cultures as well. CT of the orbits negative for any orbital involvement 2.Elevated Cr: Cr is down to 1.36. baseline is ~ 1.1. Doesnt meet criteria for BRUCE. WIll hydrate and monitor 3. Hypertension: on lisinopril and cardizem DVT prophylaxis: lovenox Code Visit Inpatient E&M: 96480 [facility] L3
[2018-11-13] MEDS: Vitamin E 400 UNITS Capsule PO (09:52)
[2018-11-13] MEDS: dilTIAZem CD 240 MG Capsule PO (09:52)
[2018-11-13] MEDS: Lisinopril 10 MG Tablet PO (09:52)
[2018-11-13] MEDS: Pyridoxine HCl 50 MG Tablet 100 MG PO (09:52)
[2018-11-13] MEDS: Enoxaparin 40 MG/0.4 ML Syringe SC (09:54)
[2018-11-13] MEDS: Loratadine 10 MG Tablet PO (11:05)
[2018-11-13] MEDS: 0.9% NaCl Peripheral Flush Adult/Peds IV ×2 (12:26→15:59)
[2018-11-13 15:21] VITALS: BP 114/66; PULSE 60; RESP 20; TEMP 36.8; O2SAT 98
[2018-11-13 21:01] VITALS: BP 136/70; PULSE 54; RESP 18; TEMP 36.4; O2SAT 98
[2018-11-14] MEDS: 0.9% NaCl Peripheral Flush Adult/Peds IV (00:20)
[2018-11-14 00:56] LABS: Vancomycin, Trough Level 15.3 ug/mL (5.0-15.0)
--- NOTE | 2018-11-14 02:12 | PCM.RX.CS ---
Consult Pharmacy has been consulted to manage selected antiobiotic: Vancomycin Type of Consult: Follow-up Suspected Infection: Skin/Soft tissue Prior Doses of Antibiotics Received/Current Regimen: Medications Vancomycin HCl 1,500 mg/ (Sodium Chloride) 530 mls @ 250 mls/hr IV Q12H [facility] Last Admin: 11/14/18 00:20 Dose: 250 mls/hr Labs: Sodium 143 mmol/L (136-145) 11/13/18 05:15 Potassium 4.5 mmol/L (3.5-5.1) 11/13/18 05:15 Chloride 108 mmol/L (98-107) H 11/13/18 05:15 Carbon Dioxide 30.0 mmol/L (21.0-32.0) 11/13/18 05:15 5 (5-15) 11/13/18 05:15 BUN 16 mg/dL (7-18) 11/13/18 05:15 1.36 mg/dL (0.70-1.30) H 11/13/18 05:15 Est GFR (MDRD) Af Amer 67 mL/min (>60) 11/13/18 05:15 Est GFR (MDRD) Non-Af 56 mL/min (>60) L 11/13/18 05:15 11.8 RATIO (10-20) 11/13/18 05:15 Glucose 82 mg/dL (74-106) 11/13/18 05:15 Vancomycin Trough 15.3 ug/mL (5.0-15.0) H 11/13/18 23:57 Weight used for dosin kg Estimated Creatinine Clearance: 64 Goal Trough: 15-20 mcg/mL Pharmacy Plan for Drug Dosing: Trough level of 15.3 was within target range. Will continue dosing at 1500mg q12h and redraw trough 11/17/18. Pharmacy Service will continue to monitor and adjust dosing as required. Follow-Up Labs: Trough Vancomycin Labs to be done on [date and time ordered]: 11/17/18 @1200
[2018-11-14 03:05] VITALS: BP 125/71; PULSE 49; RESP 18; TEMP 36.6; O2SAT 96
[2018-11-14 06:19] LABS: Absolute Lymphocyte Count 1.58 X10^3/ul (0.83-4.51); Basophil# 0.02 X10^3/uL; Basophil% 0.3 % (0-1); Eosinophil# 0.37 X10^3/uL; Hematocrit 48.1 % (40-54); Hemoglobin 16.1 g/dl (13.0-16.5); Lymphocyte # 1.58 X10^3/ul (4.0); Lymphocyte % 25.7 % (19-41); Mean Corp Hgb Conc 33.5 g/gl (32-36); Mean Corpuscular Hgb 30.5 pg (27.0-32.0); Mean Corpuscular Volume 91.1 fL (80-94); Mean Platelet Vol. 10.4 fl (6.2-12.0); Monocyte# 1.11 X10^3/uL; Monocyte% 18.1 % (0-10); Neutrophil # 3.04 X10^3/uL (2.7-7.7); Neutrophil % 49.6 % (47-70); Platelet Count 174 K/mm3 (150-450); RBC Distribution Width CV 14.1 % (11.6-14.6); RBC Distribution Width SD 46.5 fl (35.1-43.9); Red Blood Count 5.28 M/mm3 (4.6-6.2); White Blood Count 6.1 K/mm3 (4.4-11.0)
[2018-11-14 06:21] LABS: POSITIVE COUNT NO; POSITIVE DIFFERENTIAL NO; POSITIVE MORPHOLOGY NO
[2018-11-14 06:33] LABS: Anion Gap 5 (5-15); BUN 17 mg/dL (7-18); BUN/Creat Ratio 13.3 RATIO (10-20); Calcium,Total 9.2 mg/dL (8.5-10.1); Chloride 109 mmol/L (98-107); Creatinine, Serum 1.28 mg/dL (0.70-1.30); EST Glomerular Filtration Rate 60 mL/min (>60); Est Glom Filt Rate - Afr Amer 72 mL/min (>60); Estimated Creatinine Clearance 67.85 ml/min; Glucose 86 mg/dL (74-106); Potassium 4.5 mmol/L (3.5-5.1); Sodium Level 141 mmol/L (136-145)
[2018-11-14 07:27] VITALS: BP 103/54; PULSE 54; RESP 16; TEMP 36.6; O2SAT 95
[2018-11-14 07:35] VITALS: PULSE 54
[2018-11-14] MEDS: Aspirin 81 MG TAB.CHEW PO (07:41)
[2018-11-14] MEDS: Folic Acid 1 MG Tablet PO (07:41)
--- NOTE | 2018-11-14 09:08 | DCINST_ITS ---
- Discharge Diagnoses Current Active Problems: Current Active and Chronic Problems (1) Acute Cellulitis of periorbital region of both eyes (Acute) (2) Hypertension (3) Obesity You will use the following diet at home:: Cardiac Your food should be the consistency of: Regular Your liquids should be the consistency of: Regular/Thin Discharge Activity: Return to Normal Activity, - - Avoid sun exposure until facial cellulitis completely resolved. Weight Bearing Status: Weight bearing as tolerated Keep extremity elevated above heart level: - - Please elevated head when seated or sleeping to assist with swelling until cellulitis completely resolved. Call your doctor if your incision/area has: Continuous Slow Oozing, Increased Pain/ Swelling, Increased Redness Call your doctor if you observe: Fever of 101 or Higher, Inability to urinate, Inability to have a bowel movement, Shortness of breath, Dizziness, Fainting spells, Chest pain, Uncontrolled pain Instructions: Cellulitis Additional Instructions: Please follow-up with your primary care physician early as requested and continue the antibiotic therapies. Please have repeat basic metabolic panel with your primary care physician at follow-up given mild renal insufficiency noted upon initial hospital admission which improved. Allergies/Adverse Reactions: Allergies Penicillins Allergy (Verified 11/12/18 11:21) Unknown Medications to take at Discharge Aspirin [Aspirin, Baby] 81 mg PO DAILY@0800 08/27/17 Calcium Carbonate [Tums Ultra Strength] 1,177 mg PO PRN 11/12/18 Diltiazem HCl [Cartia Xt] 240 mg PO DAILY 11/12/18 Folic Acid 0.8 mg PO DAILY 11/12/18 Lisinopril [Zestril] 10 mg PO DAILY 11/12/18 Pyridoxine HCl [Vitamin B6] 100 mg PO DAILY 11/12/18 Vitamin E 400 unit PO DAILY 11/12/18 Loratadine 10 mg PO DAILY 11/13/18 Cefdinir [Omnicef [equiv]] 300 mg PO Q12H #24 cap 11/14/18 Smz/Tmp Ds [Bactrim Ds] 1 tab PO BID #24 tab 11/14/18 The following prescriptions were given: Smz/Tmp Ds [Bactrim Ds] 1 tab PO BID #24 tab Prescription Printed Cefdinir [Omnicef [equiv]] 300 mg PO Q12H #24 cap Prescription Printed Primary Care Physician: Care Physician,No Primary [Primary Care Provider] - Please follow up with your Primary Care Physician in: Follow-up within 3-5 days. Test Results: Test results from this visit will be discussed in further detail at your follow- up appointment, if applicable. Proposed Discharge Date: 11/14/18
--- NOTE | 2018-11-14 09:13 | PCM.DC.SUM ---
Discharge Date and Diagnosis - Problem List Patient Problems: Active and Suspected Problems Cellulitis of periorbital region of both eyes (Acute) Date of Admission: 11/12/18 Date of Discharge: 11/14/18 - Primary Discharge Diagnosis Active and Suspected Problems (1) Acute Cellulitis of periorbital region of both eyes (Acute) (2) Hypertension (3) Obesity - Secondary Discharge Diagnosis (1) Hypertension (2) Obesity Hospital Course and Treatment Operations: None Procedures: None Summary of Care Provided: The patient is a 68 y/o M w/ PMHx: HTN, Obesity who presented to the [facility] ED on 11/12/18 with history of progressively worsening redness, edema around both eyes with discomfort with originally noted boil around his left eye with PCP evaluation at that time initiation of oral doxycycline without improvement with notable worsening status with return to his PCP with start at that time on additional oral antibiotic but no improvement prompting ED evaluation. He notes that he had left eye periorbital cellulitis several months prior but at that time it responded to outpatient antibiotic therapy. He denied any fevers or chills during this episode. In the ED work-up included afebrile, stable vital signs, CBC without market WC elevation or shift, BMP notable for creatinine of 1.42 mildly increased from his baseline of 1.1, CT with noted bilateral periorbital soft tissue edema with no discrete fluid collection nor any evidence of post septal infiltration. Patient was admitted to medical surgical floor, initiated on regimen of IV vancomycin with cycling of CBC and BMP with improvement of renal function, improvement of facial erythema as well as edema. On reevaluation on 01/15/19 patient remained improved and eager for discharge therefore following lengthy discussion and amenable to discharge on dual antibiotic therapy with planned continuation for an additional 12 days to complete 2-week therapy with follow-up closely with primary care physician. DAY OF DISCHARGE PROGRESS NOTE: Subjective: Patient without acute event overnight per self and nursing report. Patient notes continued improvement of his facial erythema and swelling, no drainage from the left upper eye region which she had noted prior. Patient denies fever, chills, nausea, emesis, abdominal pain, chest pain or dyspnea. Patient agreeable to discharge to home and notably eager to leave. Patient will be discharged with follow-up with primary care physician within 3-5 days. Mild renal insufficiency upon presentation encourage repeat BMP with PCP. Objective: T 97.8, heart rate 54, BP 103/54, respiratory rate 16, 95% on room air. Physical Examination: General: awake, alert, oriented x 3 and cooperative, seated upright, previously walking in the room, NAD. Skin: normal color, turgor, no icterus, cyanosis noted bilateral periorbital cellulitis with notable improvement of erythema, some crusting areas with no discharge, markedly lessened edema with ability to open both eyes. HEENT: AT/NC, EOMI as noted ability to open eyes, see skin for periorbital cellulitic description which is improved, PATRICIA MONDRAGON. Lungs: CTA bilaterally, moderate effort, mild decrease BL bases, no rales, ronchi or wheezing; Heart: Mildly bradycardic with regular rhythm; no gallop, rub audible. Abdomen: soft, obese, NTTP, ND, normal BS. Extremities: no cyanosis, clubbing, or edema. Neurological: patient awake, alert, oriented x 3; cognitive function appears intact upon questioning,; pupils equally reactive to light and accomodation; cranial nerves II-XII grossly normal, moving all 4 extremities, strength improved, preserved. Psychiatric: affect appears normal, no acute evidence of depressive or anxiety feelings. Assessment and Plan: Please see hospital summary above. Patient Problems: Active and Suspected Problems Cellulitis of periorbital region of both eyes (Acute) - Physical Exam Vital Signs Temp Pulse Resp BP Pulse Ox 97.8 F 54 L 16 103/54 L 95 11/14/18 07:27 11/14/18 07:35 11/14/18 07:27 11/14/18 07:27 11/14/18 07:27 Oxygen Delivery Method Room Air Weight: 241 lb 10.026 oz Body Mass Index (BMI) 30.2 Intake and Output for Last 24 Hours 11/12/18 11/13/18 11/14/18 23:59 23:59 23:59 Intake Total 2284 / 2284 Balance 2284 / 2284 Laboratory Tests Past 24 Hrs 11/13/18 11/14/18 11/14/18 23:57 05:24 05:24 WBC 6.1 RBC 5.28 Hgb 16.1 Hct 48.1 MCV 91.1 MCH 30.5 MCHC 33.5 RDW 14.1 RDW Differential 46.5 H Plt Count 174 MPV 10.4 Immature Gran % (Auto) 0.300 Neut % (Auto) 49.6 Lymph % (Auto) 25.7 [place] % (Auto) 18.1 H Eos % (Auto) 6.0 H Baso % (Auto) 0.3 Absolute Neuts (auto) 3.0 Absolute Lymphs (auto) 1.58 Total Counted Not Reportable Sodium 141 Potassium 4.5 Chloride 109 H Carbon Dioxide 27.0 Anion Gap 5 BUN 17 Creatinine 1.28 Estim Creat Clear Calc 67.85 Est GFR (MDRD) Af Amer 72 Est GFR (MDRD) Non-Af 60 BUN/Creatinine Ratio 13.3 Glucose 86 Calcium 9.2 Vancomycin Trough 15.3 H Discharge Activity: Return to Normal Activity, - - Avoid sun exposure until facial cellulitis completely resolved. Weight Bearing Status: Weight bearing as tolerated Keep extremity elevated above heart level: - - Please elevated head when seated or sleeping to assist with swelling until cellulitis completely resolved. Call your doctor if your incision/area has: Continuous Slow Oozing, Increased Pain/ Swelling, Increased Redness Call your doctor if you observe: Fever of 101 or Higher, Inability to urinate, Inability to have a bowel movement, Shortness of breath, Dizziness, Fainting spells, Chest pain, Uncontrolled pain Home Medications: Medications to take at Discharge Aspirin [Aspirin, Baby] 81 mg PO DAILY@0800 08/27/17 Calcium Carbonate [Tums Ultra Strength] 1,177 mg PO PRN 11/12/18 Diltiazem HCl [Cartia Xt] 240 mg PO DAILY 11/12/18 Folic Acid 0.8 mg PO DAILY 11/12/18 Lisinopril [Zestril] 10 mg PO DAILY 11/12/18 Pyridoxine HCl [Vitamin B6] 100 mg PO DAILY 11/12/18 Vitamin E 400 unit PO DAILY 11/12/18 Loratadine 10 mg PO DAILY 11/13/18 Cefdinir [Omnicef [equiv]] 300 mg PO Q12H #24 cap 11/14/18 Smz/Tmp Ds [Bactrim Ds] 1 tab PO BID #24 tab 11/14/18 Following Prescrptions Were Given to Patient: Smz/Tmp Ds [Bactrim Ds] 1 tab PO BID #24 tab Prescription Printed Cefdinir [Omnicef [equiv]] 300 mg PO Q12H #24 cap Prescription Printed Primary Care Physician: Care Physician,No Primary [Primary Care Provider] - Please follow up with your Primary Care Physician in: Follow-up within 3-5 days. Patient Instructions: Cellulitis Disposition: Home Minutes spent on discharge:: 35 Patient Condition:: Fair Medical Necessity - Tobacco Use Smoking Status: Never smoker Tobacco Use: Non-smoker Meaningful Use Info Meaningful Use Diagnoses (Choose all that apply): None applicable Code Visit Inpatient E&M: 33532 [facility]
--- NOTE | 2018-11-14 09:48 | CASEMGMT ---
RN CM Assessment Introduced role of RN CM to patient.? Patient is alert, oriented and able?to participate in RN CM Assessment. ?Care providers, pharmacy, and demographics verified. Presentation: Bilt Periorbital redness on 2nd Abx in past 4 days, Not improving. Admit Dx: Periorbital Cellulitis Re-Admit: No Barriers/Issues: None PCP: Yony Branch Specialists: Dermatology Preferred Pharmacy: [facility] Insurance: [facility], MMO Rx Benefit:?Yes ?LNOK: Lenka Turcios LW/HPOA: No, Declines offered information Living Arrangements:?Lives with in a SS Home, 3 steps to enter ADL?s: Independent with ambulation and ADLs Transportation: Patient drives, will transport on DC DME: None HHC: None SNF: None Goal: Home, does not think will have any needs. Denies issues, questions or concerns. Aware CM remains available for any emerging needs. States the Dr here discussed plan for DC on Oral Abx. DC PLAN: Home with no anticipated needs identified at this time. Naz Taylor RNCM
[2018-11-14] MEDS: Cefdinir 300 MG Capsule PO (10:29)
[2018-11-14] MEDS: Vitamin E 400 UNITS Capsule PO (10:29)
[2018-11-14] MEDS: Smz/Tmp Ds Tablet 1 TABLET PO (10:29)
[2018-11-14] MEDS: Loratadine 10 MG Tablet PO (10:29)
[2018-11-14] MEDS: Pyridoxine HCl 50 MG Tablet 100 MG PO (10:30)
[2018-11-14] MEDS: Lisinopril 10 MG Tablet PO (10:30)
[2018-11-14] MEDS: dilTIAZem CD 240 MG Capsule PO (10:30)
== END 2018-11-14 11:10 | disposition home or self-care (01) | DRG 603 ==
LOC: ED 12:51 → MS3 14:23
PROVIDERS: Admitting Provider Student in an Organized Health Care Education/Training Program; Emergency Provider Emergency Medicine; Referring Provider Student in an Organized Health Care Education/Training Program; Visit Provider Family Medicine
DX: L03.213 Periorbital cellulitis (principal); I10 Essential (primary) hypertension; E66.9 Obesity, unspecified; Z68.30 Body mass index [BMI] 30.0-30.9, adult
CPT/HCPCS: 36415; 70481; 80048; 80053; 80202; 85025; 87040; 87070; 87075; 87077; 87186; 87205; 99282; J7040; J7050; Q9967; A4216

== ENCOUNTER 2018-11-17 11:00 | Inpatient (IN) | payer MEDICARE, OTHER, SELFPAY ==
[2018-11-12 15:45] VITALS: BMI 30.2
[2018-11-17 11:01] VITALS: BP 124/66; PULSE 64; RESP 17; TEMP 36.7; O2SAT 95
[2018-11-17 11:35] VITALS: BP 119/72; PULSE 64; RESP 16; TEMP 36.9; O2SAT 97
--- NOTE | 2018-11-17 11:43 | ED.VIS.GEN ---
History of Present Illness Chief Complaint: Cellulitis Narrative: Patient presenting for evaluation secondary to facial cellulitis. Patient was admitted last weekend secondary to facial cellulitis, received inpatient vancomycin had improvement and was discharged home with Omnicef and Bactrim. Patient did report that he had improvement in the hospital, and actually had improvement through yesterday. Patient states however that he woke up this morning and had significantly worse swelling again in his face and weeping from his left eyebrow area which was consistent with his cellulitis type symptoms prior to this. Patient denies any history of diabetes or immunosuppression. He denies that he has any fevers associated with this currently. He reports that he has been taking his antibiotics as prescribed. Review of systems otherwise negative. Prior similar symptoms: Yes Recent Illness/Hospitalization: Yes Past Medical History - Allergies and Home Meds Allergies/Adverse Reactions: Allergies Penicillins Allergy (Verified 11/17/18 11:01) Unknown Surgical History: no surgical history Smoking Status: Never smoker - Family History Maternal Family History: Reports: No pertinent history Review of Systems All systems negative except as indicated General: Denies: Fever Eyes: Reports: - - Denies pain with extraocular motion ENT: Reports: - - Facial rash Physical Exam Vital Signs/Narrative: Vital Signs Temp Pulse Resp BP Pulse Ox 11/17/18 11:35 98.5 F 64 16 119/72 97 11/17/18 11:01 98.1 F 64 17 124/66 H 95 General: Well nourished, Well developed, No Acute Distress Head: Normocephalic, Atraumatic Eyes: Perrl, EOMI, - ENT: Moist mucous membranes, No rhinorrhea, - - Erythema and swelling noted on the patient's face left being worse than right with a area of somewhat yellow discharge coming from the patient's left eyebrow region. No evidence of subcutaneous emphysema or any fluctuance. Neck: Supple, Nontender Cardiovascular: Regular rate, Regular rhythm, No murmurs Respiratory: No distress, CTA bilaterally, Chest nontender Abdomen: Soft, Nontender, Nondistended, Normal bowel sounds Extremities: Nontender, No edema Skin: Rash Neurological: Alert, Oriented x3, Cranial nerves II-XII grossly intact, Normal Strength, Normal Sensation Psychological: Normal affect, Normal Mood Diagnostic/Tx/Re-eval - Medical Decision Making Patient presented secondary to reemergence of facial cellulitis. He does not appear to have septal cellulitis as he is nontoxic and does not have any pain with extraocular motion. I do not believe that repeat imaging is indicated. Laboratory studies were obtained, patient was given vancomycin. Given the patient's failure of outpatient treatment I believe he requires readmission unfortunately. This will be discussed with the hospitalist. ED Disposition - Plan for ED Patient: Disposition: Acute Care Hospital [facility] Diagnosis: Cellulitis of periorbital region of both eyes, Failure of outpatient treatment
[2018-11-17 11:49] LABS: Absolute Lymphocyte Count 1.42 X10^3/uL (0.83-4.51); Absolute Neutrophil Count 3.4 X10^3/uL (2.0-7.7); Basophil# 0.03 X10^3/uL; Basophil% 0.5 % (0-1); Eosinophil# 0.31 X10^3/uL; Eosinophils% 5.3 % (0-5); Hematocrit 53.8 % (40-54); Hemoglobin 17.5 g/dL (13.0-16.5); Lymphocyte # 1.42 X10^3/ul (4.0); Lymphocyte % 24.1 % (19-41); Mean Corp Hgb Conc 32.5 g/dL (32-36); Mean Corpuscular Hgb 30.6 pg (27.0-32.0); Mean Corpuscular Volume 94.1 fL (80-94); Mean Platelet Vol. 9.7 fl (6.2-12.0); Monocyte# 0.68 X10^3/uL; Monocyte% 11.5 % (0-10); NRBC Flagged by Analyzer 0 % (0-5); Neutrophil # 3.44 X10^3/uL (2.7-7.7); Neutrophil % 58.3 % (47-70); Platelet Count 211 K/mm3 (150-450); RBC Distribution Width CV 13.9 % (11.6-14.6); RBC Distribution Width SD 47.8 fl (35.1-43.9); Red Blood Count 5.72 M/mm3 (4.6-6.2); White Blood Count 5.9 K/mm3 (4.4-11.0)
[2018-11-17 12:01] LABS: Anion Gap 4 (5-15); BUN 15 mg/dL (7-18); BUN/Creat Ratio 9.9 RATIO (10-20); Calcium,Total 9.7 mg/dL (8.5-10.1); Chloride 103 mmol/L (98-107); Creatinine, Serum 1.52 mg/dL (0.70-1.30); EST Glomerular Filtration Rate 49 mL/min (>60); Est Glom Filt Rate - Afr Amer 59 mL/min (>60); Estimated Creatinine Clearance 57.14 ml/min; Glucose 120 mg/dL (74-106); Potassium 4.1 mmol/L (3.5-5.1); Sodium Level 137 mmol/L (136-145)
--- NOTE | 2018-11-17 12:47 | NURSING ---
MED SURG FACIAL CELLULITIS [place]OT[place]IS
[2018-11-17 13:06] VITALS: BP 126/71; PULSE 57; RESP 16; O2SAT 94
[2018-11-17 13:30] VITALS: BP 128/67; PULSE 55; RESP 16; TEMP 36.7; O2SAT 99
[2018-11-17 13:40] VITALS: BMI 29.8
[2018-11-17 13:41] VITALS: BMI 29.8
[2018-11-17] MEDS: 0.9% Normal Saline 1,000 ML 100 ML IV (13:54)
--- NOTE | 2018-11-17 14:21 | PCM.RX.CS ---
Consult Pharmacy has been consulted to manage selected antiobiotic: Vancomycin Type of Consult: New start Suspected Infection: Skin/Soft tissue Prior Doses of Antibiotics Received/Current Regimen: 1 (1750MG) Labs: Sodium 137 mmol/L (136-145) 11/17/18 11:37 Potassium 4.1 mmol/L (3.5-5.1) 11/17/18 11:37 Chloride 103 mmol/L (98-107) 11/17/18 11:37 Carbon Dioxide 30.0 mmol/L (21.0-32.0) 11/17/18 11:37 4 (5-15) L 11/17/18 11:37 BUN 15 mg/dL (7-18) 11/17/18 11:37 1.52 mg/dL (0.70-1.30) H 11/17/18 11:37 Est GFR (MDRD) Af Amer 59 mL/min (>60) L 11/17/18 11:37 Est GFR (MDRD) Non-Af 49 mL/min (>60) L 11/17/18 11:37 9.9 RATIO (10-20) L 11/17/18 11:37 Glucose 120 mg/dL (74-106) H 11/17/18 11:37 Weight used for dosin.3 kg Estimated Creatinine Clearance: 57.14 Goal Trough: 15-20 mcg/mL - VANCOMYCIN 1 GRAM Q12H - TROUGH ORDERED PRIOR TO 4TH TOTAL DOSE Pharmacy Plan for Drug Dosing: Pharmacy Service will continue to monitor and adjust dosing as required.
--- NOTE | 2018-11-17 17:23 | HP.PCM_ITS ---
Problem List (1) Cellulitis of periorbital region of both eyes Status: Acute (2) Failure of outpatient treatment Status: Acute History of Present Illness Date of Admission: 11/17/18 Chief Complaint: Left facial cellulitis that is not improving with treatment The patient is a 68 year old M with PMH as below who presented on 713 with bilateral facial cellulitis. At that time he was started on vancomycin and his cellulitis had improved significantly. He was discharged on 11/14/2018 after significant improvement of his facial cellulitis, on Omnicef and Bactrim. He states last night he felt okay and then this morning he woke up with increased redness around his left eye. He denies any ocular pain with movement, or blurry vision. Previous CT of the orbits on his previous admission did not demonstrate any fluid collection behind the eye, and just showed soft tissue swelling. Initially on admission he had a creatinine of 1.42 and by the time he was discharged it was 1.28, today on admission his creatinine is back up to 1.52. Past Medical History Allergies Penicillins Allergy (Verified 11/17/18 11:01) Unknown Home Medications: Ambulatory Orders Medication Instructions Recorded Aspirin [Aspirin, Baby] 81 mg PO DAILY@0800 08/27/17 Calcium Carbonate [Tums Ultra 1,177 mg PO DAILY 11/12/18 Strength] Diltiazem HCl [Cartia Xt] 240 mg PO DAILY 11/12/18 Folic Acid 0.8 mg PO DAILY 11/12/18 Lisinopril [Zestril] 10 mg PO DAILY 11/12/18 Pyridoxine HCl [Vitamin B6] 100 mg PO DAILY 11/12/18 Vitamin E 400 unit PO DAILY 11/12/18 Loratadine 10 mg PO DAILY 11/13/18 Cefdinir [Omnicef [equiv]] 300 mg PO Q12H #24 cap 11/14/18 Smz/Tmp Ds [Bactrim Ds] 1 tab PO BID #24 tab 11/14/18 Surgical History: no surgical history Psychiatric History: No pertinent psych hx Lives: Spouse/ Significant Other Smoking Status: Never smoker Alcohol: None Drugs: None - *Family History Maternal History Items: No pertinent history Review of Systems Constitutional: Denies: Chills, Fever, Weight Change Eyes: Reports: Drainage, Eyelid Inflammation. Denies: Blurred vision, Double vision, Pain, Vision Change HEENT: Denies: Head Aches, Sinus Congestion, Sinus Drainage Cardiovascular: Denies: Chest Pain, Palpitations Respiratory: Denies: Cough, Shortness of breath at rest, Sputum production Gastrointestinal: Denies: Abdominal Pain, Nausea, Vomiting Genitourinary: Denies: Dysuria Musculoskeletal: Denies: Joint Pain, Joint Tenderness Skin: Denies: Rash, Wounds Neurological: Denies: Numbness, Tingling, Focal weakness Psychiatric: Denies: Anxiety, Depression Hematologic/ Lymphatic: Denies: Easy Bruising, Easy Bleeding VTE Information - Inpt Only VTE Present on Admission: No Patient Problems: Active and Suspected Problems Cellulitis of periorbital region of both eyes (Acute) Failure of outpatient treatment (Acute) - Physical Exam General: Alert, Oriented x3, Cooperative, No apparent distress HEENT: Atraumatic, PERRLA, EOMI, Normocephalic, - - Erythema and serous drainage around his left eye Oral: Moist Mucosa Neck: Supple, No JVD Lungs: Clear to auscultation, Normal air movement, No rhonchi, No wheeze, No rales Cardiovascular: Regular rate, Regular Rhythm, Normal S1, Normal S2, No murmurs Abdomen: Soft, Non Tender, Non-Distended, No Hepato-splenomegaly Extremities: No edema, Capillary Refill Less than 3 Seconds Skin: No rashes, No breakdown Neurological: Neuro grossly intact, Sensory exam intact to light touch and pain Psych/Mental Status: Normal Affect, Appropriate Vital Signs Temp Pulse Resp BP Pulse Ox 98.1 F 55 L 16 128/67 H 99 11/17/18 13:30 11/17/18 13:30 11/17/18 13:30 11/17/18 13:30 11/17/18 13:30 Oxygen Delivery Method Room Air Weight: 238 lb 12.8 oz Body Mass Index (BMI) 29.8 Laboratory Tests Past 24 Hrs 11/17/18 11/17/18 11:37 11:37 WBC 5.9 RBC 5.72 Hgb 17.5 H Hct 53.8 MCV 94.1 H MCH 30.6 MCHC 32.5 RDW Std Deviation 47.8 H RDW Coeff of Sukhwinder 13.9 Plt Count 211 MPV 9.7 Immature Gran % (Auto) 0.300 Neut % (Auto) 58.3 Lymph % (Auto) 24.1 [place] % (Auto) 11.5 H Eos % (Auto) 5.3 H Baso % (Auto) 0.5 Absolute Neuts (auto) 3.4 Absolute Lymphs (auto) 1.42 Absolute Nucleated RBC 0.00 Nucleated RBC % 0 Sodium 137 Potassium 4.1 Chloride 103 Carbon Dioxide 30.0 Anion Gap 4 L BUN 15 Creatinine 1.52 H Estim Creat Clear Calc 57.14 Est GFR (MDRD) Af Amer 59 L Est GFR (MDRD) Non-Af 49 L BUN/Creatinine Ratio 9.9 L Glucose 120 H Calcium 9.7 Assessment/Plan All Active Problems Cellulitis of periorbital region of both eyes (Acute) Failure of outpatient treatment (Acute) 1. Left-sided preseptal orbital cellulitis -He is failed outpatient management after inpatient management -He was initiated on vancomycin as an inpatient and then transitioned to Omnicef and Bactrim as an outpatient -No leukocytosis or fever -Continue with vancomycin -Previous blood blood cultures are negative and given his dosages of antibiotics will not repeat blood cultures as they will likely be negative -Previous eye cultures are growing gram-positive organisms however there is no identification or sensitivities as of yet -We will consult infectious disease for assistance in antibiotic management 2. BRUCE -His baseline creatinine is around 1 and his current creatinine was 1.52 -Continue with IV fluids -Monitor renal function 3. Hypertension -Stable -Since we are hydrating him we will continue with his lisinopril and his Cardizem -Continue with aspirin DVT: Lovenox Code Visit Inpatient E&M: 30509 Init Hosp [facility]
[2018-11-17 20:08] VITALS: BP 107/62; PULSE 59; RESP 16; TEMP 36.5; O2SAT 96
[2018-11-18] MEDS: Vancomycin IV 1,000 MG/200 ML BAG 200 MG IV ×2 (00:11→12:29)
[2018-11-18] MEDS: 0.9% Normal Saline 1,000 ML 100 ML IV (02:05)
[2018-11-18 02:07] VITALS: BP 114/66; PULSE 51; RESP 16; TEMP 36.4; O2SAT 95
[2018-11-18 06:02] LABS: Anion Gap 4 (5-15); BUN 14 mg/dL (7-18); BUN/Creat Ratio 9.9 RATIO (10-20); Chloride 108 mmol/L (98-107); Creatinine, Serum 1.42 mg/dL (0.70-1.30); EST Glomerular Filtration Rate 53 mL/min (>60); Est Glom Filt Rate - Afr Amer 64 mL/min (>60); Estimated Creatinine Clearance 61.16 ml/min; Glucose 86 mg/dL (74-106); Potassium 4.4 mmol/L (3.5-5.1); Sodium Level 142 mmol/L (136-145)
[2018-11-18 06:19] LABS: Absolute Lymphocyte Count 1.24 X10^3/uL (0.83-4.51); Absolute Neutrophil Count 2.2 X10^3/uL (2.0-7.7); Basophil# 0.04 X10^3/uL; Basophil% 0.9 % (0-1); Eosinophil# 0.35 X10^3/uL; Eosinophils% 7.5 % (0-5); Hematocrit 49.2 % (40-54); Hemoglobin 15.9 g/dL (13.0-16.5); Lymphocyte # 1.24 X10^3/ul (4.0); Lymphocyte % 26.7 % (19-41); Mean Corp Hgb Conc 32.3 g/dL (32-36); Mean Corpuscular Hgb 30.8 pg (27.0-32.0); Mean Corpuscular Volume 95.2 fL (80-94); Mean Platelet Vol. 10.1 fl (6.2-12.0); Monocyte# 0.78 X10^3/uL; Monocyte% 16.8 % (0-10); NRBC Flagged by Analyzer 0 % (0-5); Neutrophil # 2.21 X10^3/uL (2.7-7.7); Neutrophil % 47.5 % (47-70); Platelet Count 193 K/mm3 (150-450); RBC Distribution Width SD 49.1 fl (35.1-43.9); Red Blood Count 5.17 M/mm3 (4.6-6.2); White Blood Count 4.7 K/mm3 (4.4-11.0)
[2018-11-18 08:00] VITALS: BP 114/74; PULSE 53; RESP 14; TEMP 36.4; O2SAT 99
[2018-11-18] MEDS: Lisinopril 10 MG Tablet PO (09:29)
[2018-11-18] MEDS: Aspirin 81 MG TAB.CHEW PO (09:29)
[2018-11-18] MEDS: dilTIAZem CD 240 MG Capsule PO (09:29)
[2018-11-18] MEDS: Pyridoxine HCl 50 MG Tablet 100 MG PO (09:29)
--- NOTE | 2018-11-18 09:31 | CON.PCM_ITS ---
Reason for Consult: Facial cellulitis recurrent History of Present Illness: The patient is a 68 year old M [] This is a 68-year-old gentleman with a history of hypertension and a recent hospitalization last week for facial cellulitis which he clinically improved with parenteral antibiotic therapy and was sent home on 14 November on oral antibiotics in the form of Omnicef plus Bactrim. Shortly after his discharge he noted increasing erythema of his face and was brought back again yesterday and was readmitted for IV antimicrobial therapy. Is currently on vancomycin parenterally. Denies any fevers or chills denies any trauma to his face. He does have generalized eczema and has a history of facial cellulitis roughly a m onth ago which was treated with an oral antibiotic which he does not recall. Clinically he is improving over the last 12 hours on parenteral antibiotic therapy. No cardiopulmonary distress no gastrointestinal symptoms he is otherwise hemodynamically stable - Medical History Allergies/Adverse Reactions: Allergies Penicillins Allergy (Verified 11/17/18 11:01) Unknown Home Medications: Ambulatory Orders Medication Instructions Recorded Aspirin [Aspirin, Baby] 81 mg PO DAILY@0800 08/27/17 Calcium Carbonate [Tums Ultra 1,177 mg PO DAILY 11/12/18 Strength] Diltiazem HCl [Cartia Xt] 240 mg PO DAILY 11/12/18 Folic Acid 0.8 mg PO DAILY 11/12/18 Lisinopril [Zestril] 10 mg PO DAILY 11/12/18 Pyridoxine HCl [Vitamin B6] 100 mg PO DAILY 11/12/18 Vitamin E 400 unit PO DAILY 11/12/18 Loratadine 10 mg PO DAILY 11/13/18 Cefdinir [Omnicef [equiv]] 300 mg PO Q12H #24 cap 11/14/18 Smz/Tmp Ds [Bactrim Ds] 1 tab PO BID #24 tab 11/14/18 Review of Systems Comment: Noncontributory Vital Signs Temp Pulse Resp BP Pulse Ox 97.6 F L 53 L 14 114/74 99 11/18/18 08:00 11/18/18 08:00 11/18/18 08:00 11/18/18 08:00 11/18/18 08:00 Oxygen Delivery Method Room Air Weight: 108.318 kg Body Mass Index (BMI) 29.8 Laboratory Tests Past 24 Hrs 11/17/18 11/17/18 11/18/18 11:37 11:37 05:26 WBC 5.9 4.7 RBC 5.72 5.17 Hgb 17.5 H 15.9 Hct 53.8 49.2 MCV 94.1 H 95.2 H MCH 30.6 30.8 MCHC 32.5 32.3 RDW Std Deviation 47.8 H 49.1 H RDW Coeff of Sukhwinder 13.9 14.0 Plt Count 211 193 MPV 9.7 10.1 Immature Gran % (Auto) 0.300 0.600 Neut % (Auto) 58.3 47.5 Lymph % (Auto) 24.1 26.7 [place] % (Auto) 11.5 H 16.8 H Eos % (Auto) 5.3 H 7.5 H Baso % (Auto) 0.5 0.9 Absolute Neuts (auto) 3.4 2.2 Absolute Lymphs (auto) 1.42 1.24 Absolute Nucleated RBC 0.00 0.00 Nucleated RBC % 0 0 Sodium 137 Potassium 4.1 Chloride 103 Carbon Dioxide 30.0 Anion Gap 4 L BUN 15 Creatinine 1.52 H Estim Creat Clear Calc 57.14 Est GFR (MDRD) Af Amer 59 L Est GFR (MDRD) Non-Af 49 L BUN/Creatinine Ratio 9.9 L Glucose 120 H Calcium 9.7 11/18/18 05:26 WBC RBC Hgb Hct MCV MCH MCHC RDW Std Deviation RDW Coeff of Sukhwinder Plt Count MPV Immature Gran % (Auto) Neut % (Auto) Lymph % (Auto) [place] % (Auto) Eos % (Auto) Baso % (Auto) Absolute Neuts (auto) Absolute Lymphs (auto) Absolute Nucleated RBC Nucleated RBC % Sodium 142 Potassium 4.4 Chloride 108 H Carbon Dioxide 30.0 Anion Gap 4 L BUN 14 Creatinine 1.42 H Estim Creat Clear Calc 61.16 Est GFR (MDRD) Af Amer 64 Est GFR (MDRD) Non-Af 53 L BUN/Creatinine Ratio 9.9 L Glucose 86 Calcium 9.0 - Other Studies Radiology: [] Other Studies: [] Route of nutrition/ use of supplements: [] Nutritional Intake: [] IV Site: [] [place] Catheter: [] Alert and oriented does not appear toxic he does have some erythema of his face there is no fluctuance or signs of deep infection. Lungs are clear heart exam S1-S2 abdomen soft nontender - Assessment/Plan Antibiotics: [] Assessment/Plan: [] Active and Suspected Problems Cellulitis of periorbital region of both eyes (Acute) Failure of outpatient treatment (Acute) Facial cellulitis strongly suspect streptococcal in etiology nonsuppurative cellulitic infection. He does have underlying eczema. At this point will treat with oral antibiotics in the form of Keflex 500 mg 4 times daily upon discharge. I did write a prescription for a 10-day course. I will be happy to follow him in my office in 7 to 10 days to make sure he is clinically improving. Patient does not know about his penicillin allergy he was told that after allergy testing.
--- NOTE | 2018-11-18 09:48 | DCINST_ITS ---
- Discharge Diagnoses Current Active Problems: Current Active and Chronic Problems Cellulitis of periorbital region of both eyes (Acute) Failure of outpatient treatment (Acute) You will use the following diet at home:: Regular Your food should be the consistency of: Regular Your liquids should be the consistency of: Regular/Thin Discharge Activity: Return to Normal Activity, No Restrictions Call your doctor if you observe: Fever of 101 or Higher, Shortness of breath, Dizziness, Fainting spells, Swelling in the ankles, Chest pain, Increased palpitations (irregular heartbeat) Additional Instructions: See your doctor and obtain a BMP in 3-5 days to evaluate your kidney function. Hold your lisinopril for 2-3 days and drink plenty of fluids at home. Allergies/Adverse Reactions: Allergies Penicillins Allergy (Verified 11/17/18 11:01) Unknown Medications to take at Discharge Aspirin [Aspirin, Baby] 81 mg PO DAILY@0800 08/27/17 Calcium Carbonate [Tums Ultra Strength] 1,177 mg PO DAILY 11/12/18 Diltiazem HCl [Cartia Xt] 240 mg PO DAILY 11/12/18 Folic Acid 0.8 mg PO DAILY 11/12/18 Lisinopril [Zestril] 10 mg PO DAILY 11/12/18 Pyridoxine HCl [Vitamin B6] 100 mg PO DAILY 11/12/18 Vitamin E 400 unit PO DAILY 11/12/18 Loratadine 10 mg PO DAILY 11/13/18 Primary Care Physician: Yony Branch MD [Primary Care Provider] - Please follow up with your Primary Care Physician in: 3-5 days Test Results: Test results from this visit will be discussed in further detail at your follow- up appointment, if applicable.
--- NOTE | 2018-11-18 11:07 | DS.PCM_ITS ---
Discharge Date and Diagnosis - Problem List Patient Problems: Active and Suspected Problems Cellulitis of periorbital region of both eyes (Acute) Failure of outpatient treatment (Acute) Date of Admission: 11/17/18 Date of Discharge: 11/18/18 - Primary Discharge Diagnosis Active and Suspected Problems Cellulitis of periorbital region of both eyes (Acute) Failure of outpatient treatment (Acute) Hospital Course and Treatment Imaging Results: None Consults: ID Operations: None Procedures: None Summary of Care Provided: Per HPI: The patient is a 68 year old M with PMH as below who presented on 11/12 with bilateral facial cellulitis. At that time he was started on vancomycin and his cellulitis had improved significantly. He was discharged on 11/14/2018 after significant improvement of his facial cellulitis, on Omnicef and Bactrim. He states last night he felt okay and then this morning he woke up with increased redness around his left eye. He denies any ocular pain with movement, or blurry vision. Previous CT of the orbits on his previous admission did not demonstrate any fluid collection behind the eye, and just showed soft tissue swelling. Initially on admission he had a creatinine of 1.42 and by the time he was discharged it was 1.28, today on admission his creatinine is back up to 1.52. Hospital Course: 1. Left-sided preseptal [id number]-old male who presented previously with bilateral preseptal cellulitis had a CT scan which was negative for any fluid collection, he denies any fevers currently or chills and does not have any pain with ocular movement. He improved significantly on his previous admission on vancomycin and was therefore discharged on 11/14/2018 with Omnicef and Bactrim. He took those for 2 days and on the day of admission he woke up and his redness was significantly worse with crusting. He was restarted on his IV vancomycin and infectious disease was consulted to assist with this outpatient failure of therapy. They felt that this was very highly likely to be a streptococcal infection and recommended Keflex 500 mg p.o. 4 times daily for 10 days. He can follow-up with infectious disease in 7 to 10 days. I discussed this with the patient and he felt like he would like to stay to receive his dose of vancomycin today and then be discharged home today since he has had significant improvement in his condition sooner than anticipated. 2. BRUCE-his previous baseline was around 1 first creatinine, and on his previous admission he was 1.42 and on the day of his previous discharge she was 1.28. On this admission he came in with a creatinine of 1.52. He was started on IV fluids and he did improve to 1.42. I expressed to him that he needs to hold his lisinopril for 3 days at home and drink plenty of fluids. He needs to follow-up with his primary care physician to obtain a BMP to demonstrate resolution of his BRUCE. 3. His other medical diagnoses were evaluated and his home medications were con tinued where appropriate Patient Problems: Active and Suspected Problems Cellulitis of periorbital region of both eyes (Acute) Failure of outpatient treatment (Acute) Objective: General: Alert, Oriented x3, Cooperative, No apparent distress HEENT: Atraumatic, PERRLA, EOMI, Normocephalic, - - Erythema and serous drainage and crusting around his left eye Oral: Moist Mucosa Neck: Supple, No JVD Lungs: Clear to auscultation, Normal air movement, No rhonchi, No wheeze, No rales Cardiovascular: Regular rate, Regular Rhythm, Normal S1, Normal S2, No murmurs Abdomen: Soft, Non Tender, Non-Distended, No Hepato-splenomegaly Extremities: No edema, Capillary Refill Less than 3 Seconds Skin: No rashes, No breakdown Neurological: Neuro grossly intact, Sensory exam intact to light touch and pain Psych/Mental Status: Normal Affect, Appropriate - Physical Exam Vital Signs Temp Pulse Resp BP Pulse Ox 97.6 F L 53 L 14 114/74 99 11/18/18 08:00 11/18/18 08:00 11/18/18 08:00 11/18/18 08:00 11/18/18 08:00 Oxygen Delivery Method Room Air Weight: 238 lb 12.8 oz Body Mass Index (BMI) 29.8 Intake and Output for Last 24 Hours 11/16/18 11/17/18 11/18/18 23:59 23:59 23:59 Intake Total 1386 / 1386 2816 / 2816 Balance 1386 / 1386 2816 / 2816 Laboratory Tests Past 24 Hrs 11/17/18 11/17/18 11/18/18 11:37 11:37 05:26 WBC 5.9 4.7 RBC 5.72 5.17 Hgb 17.5 H 15.9 Hct 53.8 49.2 MCV 94.1 H 95.2 H MCH 30.6 30.8 MCHC 32.5 32.3 RDW Std Deviation 47.8 H 49.1 H RDW Coeff of Sukhwinder 13.9 14.0 Plt Count 211 193 MPV 9.7 10.1 Immature Gran % (Auto) 0.300 0.600 Neut % (Auto) 58.3 47.5 Lymph % (Auto) 24.1 26.7 [place] % (Auto) 11.5 H 16.8 H Eos % (Auto) 5.3 H 7.5 H Baso % (Auto) 0.5 0.9 Absolute Neuts (auto) 3.4 2.2 Absolute Lymphs (auto) 1.42 1.24 Absolute Nucleated RBC 0.00 0.00 Nucleated RBC % 0 0 Sodium 137 Potassium 4.1 Chloride 103 Carbon Dioxide 30.0 Anion Gap 4 L BUN 15 Creatinine 1.52 H Estim Creat Clear Calc 57.14 Est GFR (MDRD) Af Amer 59 L Est GFR (MDRD) Non-Af 49 L BUN/Creatinine Ratio 9.9 L Glucose 120 H Calcium 9.7 11/18/18 05:26 WBC RBC Hgb Hct MCV MCH MCHC RDW Std Deviation RDW Coeff of Sukhwinder Plt Count MPV Immature Gran % (Auto) Neut % (Auto) Lymph % (Auto) [place] % (Auto) Eos % (Auto) Baso % (Auto) Absolute Neuts (auto) Absolute Lymphs (auto) Absolute Nucleated RBC Nucleated RBC % Sodium 142 Potassium 4.4 Chloride 108 H Carbon Dioxide 30.0 Anion Gap 4 L BUN 14 Creatinine 1.42 H Estim Creat Clear Calc 61.16 Est GFR (MDRD) Af Amer 64 Est GFR (MDRD) Non-Af 53 L BUN/Creatinine Ratio 9.9 L Glucose 86 Calcium 9.0 Discharge Activity: Return to Normal Activity, No Restrictions Call your doctor if you observe: Fever of 101 or Higher, Shortness of breath, Dizziness, Fainting spells, Swelling in the ankles, Chest pain, Increased palpitations (irregular heartbeat) Home Medications: Medications to take at Discharge Aspirin [Aspirin, Baby] 81 mg PO DAILY@0800 08/27/17 Calcium Carbonate [Tums Ultra Strength] 1,177 mg PO DAILY 11/12/18 Diltiazem HCl [Cartia Xt] 240 mg PO DAILY 11/12/18 Folic Acid 0.8 mg PO DAILY 11/12/18 Lisinopril [Zestril] 10 mg PO DAILY 11/12/18 Pyridoxine HCl [Vitamin B6] 100 mg PO DAILY 11/12/18 Vitamin E 400 unit PO DAILY 11/12/18 Loratadine 10 mg PO DAILY 11/13/18 Primary Care Physician: Yony Branch MD [Primary Care Provider] - Please follow up with your Primary Care Physician in: 3-5 days Please Follow Up With: German Shelton MD When: 7-10 DAYS Disposition: Home Minutes spent on discharge:: 35 Patient Condition:: Good Medical Necessity - Tobacco Use Smoking Status: Never smoker Meaningful Use Info Meaningful Use Diagnoses (Choose all that apply): None applicable Code Visit Inpatient E&M: 55476 Disch Hosp
--- NOTE | 2018-11-18 11:11 | CASEMGMT ---
ANNE LIZARRAGA Re-admission Review: Pt admitted to [facility] w/diagnosis of Periorbital Cellulitis on 11/12/18 and discharged home on PO atb's on 11/14/18. Re-admitted 11/17/18 with facial cellulitis. Seen by ID and plan is for pt to discharge home again with change in PO atb's. Pt is also to f/u with PCP in 3-[address] Shelton in 7-10 days. Mary, receptionist secretary aware of f/u appts needed with both physicians. ANNE LIZARRAGA to room to talk with pt. in room visiting. Introduced self and role of ANNE LIZARRAGA. Pt states he has already been given the script for the new antibiotic. Discussed f/u appts with PCP and Dr Shelton and pt states he is aware. Pt and state they have no questions or concerns with discharge and voice appreciation of information and care pt has received. Konstantin MCN ANNE LIZARRAGA
[2018-11-18] MEDS: 0.9% NaCl Peripheral Flush Adult/Peds IV (12:31)
[2018-11-18 13:40] VITALS: BP 113/52; PULSE 59; RESP 12; TEMP 36.7; O2SAT 100
== END 2018-11-18 13:48 | disposition home or self-care (01) | DRG 603 ==
LOC: ED 11:46 → MS3 12:58
PROVIDERS: Admitting Provider Family Medicine; Emergency Provider Emergency Medicine; Family Provider Family Medicine; PCP Family Medicine; Referring Provider Family Medicine; Visit Provider Family Medicine
DX: L03.213 Periorbital cellulitis (principal); N17.9 Acute kidney failure, unspecified; I10 Essential (primary) hypertension
CPT/HCPCS: 36415; 80048; 85025; 99284; J7030; J7040; J7050; A4216

== ENCOUNTER → 2018-11-23 12:16 | Outpatient (CLI) | payer MEDICARE, OTHER, SELFPAY ==
[2018-11-23 14:27] LABS: Anion Gap 10 (5-15); BUN 15 mg/dL (7-18); BUN/Creat Ratio 12.6 RATIO (10-20); Calcium,Total 9.5 mg/dL (8.5-10.1); Chloride 102 mmol/L (98-107); Creatinine, Serum 1.19 mg/dL (0.70-1.30); EST Glomerular Filtration Rate 65 mL/min (>60); Est Glom Filt Rate - Afr Amer 79 mL/min (>60); Glucose 75 mg/dL (74-106); Potassium 4.4 mmol/L (3.5-5.1); Sodium Level 143 mmol/L (136-145)
== END ==
PROVIDERS: Family Provider Family Medicine; PCP Family Medicine; Referring Provider Family Medicine; Visit Provider Family Medicine
DX: N17.9 Acute kidney failure, unspecified (principal)
CPT/HCPCS: 36415; 80048

== ENCOUNTER 2019-10-08 09:58 | Emergency (ER) | payer MEDICARE, OTHER, SELFPAY ==
[2019-10-08 10:00] VITALS: BP 144/79; PULSE 56; RESP 17; TEMP 36.2; O2SAT 100; BMI 21.6
[2019-10-08 10:11] VITALS: BP 144/79; PULSE 56; RESP 17; TEMP 36.2; O2SAT 100
[2019-10-08 10:42] LABS: Absolute Lymphocyte Count 0.94 X10^3/uL (0.83-4.51); Absolute Neutrophil Count 2.9 X10^3/uL (2.0-7.7); Basophil# 0.02 X10^3/uL; Basophil% 0.4 % (0-1); Eosinophil# 0.19 X10^3/uL; Hematocrit 47.9 % (40-54); Hemoglobin 15.2 g/dL (13.0-16.5); Lymphocyte # 0.94 X10^3/ul (4.0); Lymphocyte % 19.7 % (19-41); Mean Corp Hgb Conc 31.7 g/dL (32-36); Mean Corpuscular Hgb 29.9 pg (27.0-32.0); Mean Corpuscular Volume 94.3 fL (80-94); Mean Platelet Vol. 9.5 fl (6.2-12.0); Monocyte% 14.6 % (0-10); NRBC Flagged by Analyzer 0 % (0-5); Neutrophil # 2.92 X10^3/uL (2.7-7.7); Neutrophil % 61.1 % (47-70); Platelet Count 202 K/mm3 (150-450); RBC Distribution Width CV 12.4 % (11.6-14.6); RBC Distribution Width SD 42.7 fl (35.1-43.9); Red Blood Count 5.08 M/mm3 (4.6-6.2); White Blood Count 4.8 K/mm3 (4.4-11.0)
[2019-10-08] MEDS: Cefazolin 1 GM/50 ML BAG IV (10:46)
--- NOTE | 2019-10-08 10:50 | ED.DCSUM_ITS ---
- ER Visit Summary Date of Service: 10/08/19 Chief Complaint: Facial cellulitis History of Present Illness: The patient is a 68 M who presents with cellulitis to his face that is been getting worse over the past 5 days. Patient was given a prescription for Keflex and doxycycline by his primary care physician. Patient states the swelling is getting worse despite this. Patient denies any fevers or chills. Patient denies any discharge or drainage. Patient denies any abscess formation. Patient denies any difficulty breathing or difficulty swallowing. Physical Examination: Vital signs are stable. Patient is afebrile. Patient is in no acute distress. Skin is warm and dry. There is erythema, edema, and warmth over the mid face and bilateral periorbital areas. There is no abscess formation. There is no discharge or drainage. Pupils are equal, round, and reactive to light bilaterally. Extraocular muscles are intact. Conjunctiva is clear. Oral mucosa is pink and moist. Oropharynx is clear. Neck is supple. Trachea is midline. There is no JVD. Heart was regular rate and rhythm. Lungs are clear and equal bilaterally. Abdomen is soft and nontender. Cranial nerves II through XII are intact. There are no focal motor or sensory deficits noted. Extremities are intact. There is no calf tenderness or edema. Test Results: CBC, comprehensive metabolic profile, serum lactate, INR and PTT were all within normal limits. Emergency Department Course and Treatment: Patient was given Ancef and vancomycin here. Patient was feeling better on reevaluation. Patient has no SIRS criteria. Patient was instructed to stop the Keflex and doxycycline. Patient was given a prescription for clindamycin and Bactrim. Patient was instructed to follow-up with his primary care physician in 3 to 5 days. Patient was instructed to return if worse in any way. Patient understood and was agreeable with the plan. All questions were answered. Disposition: Discharge home Impression: Facial cellulitis This note was generated with [employer] dictation software. It may contain incorrect words, spelling, and punctuation that were not noted in review of the chart angle or to signing ED Disposition - Plan for ED Patient: Disposition: Home or Assisted Living Diagnosis: Facial cellulitis Instructions: ED Cellulitis Prescriptions: Smz/Tmp Ds [Bactrim Ds] 1 tab PO BID #20 tab Prescription Printed Clindamycin HCl [Cleocin] 300 mg PO Q6H #40 cap Prescription Printed Referrals: Yony Branch MD [Primary Care Provider] - 3-5 Days
[2019-10-08 10:52] LABS: International Normalized Ratio 1.1; Prothrombin Time (Protime)PT. 13.3 SECONDS (11.7-14.9)
[2019-10-08 10:53] LABS: Partial Thromboplast Time 29.2 Seconds (24.1-36.2)
[2019-10-08 11:02] VITALS: BP 98/46; PULSE 45; RESP 16; TEMP 36.8; O2SAT 100
[2019-10-08 11:07] LABS: ALB/GLOB Ratio 0.8 RATIO (0.9-2.4); AST(SGOT) 20 U/L (15-37); Alanine Aminotransfer ALT/SGPT 31 U/L (16-61); Albumin, Serum 3.3 g/dL (3.2-5.0); Alkaline Phosphatase 106 U/L (45-117); Anion Gap 5 (5-15); BUN 18 mg/dL (7-18); BUN/Creat Ratio 18.6 RATIO (10-20); Calcium,Total 9.4 mg/dL (8.5-10.1); Chloride 103 mmol/L (98-107); Creatinine, Serum 0.97 mg/dL (0.70-1.30); EST Glomerular Filtration Rate 82 mL/min (>60); Est Glom Filt Rate - Afr Amer 99 mL/min (>60); Estimated Creatinine Clearance 83.18 ml/min; Globulin 4.2 g/dL (2.2-4.2); Glucose 85 mg/dL (74-106); Potassium 4.1 mmol/L (3.5-5.1); Protein, Total 7.5 g/dL (6.4-8.2); Sodium Level 139 mmol/L (136-145)
[2019-10-08 11:08] LABS: Lactic Acid 0.9 mmol/L (0.4-1.9)
[2019-10-08 12:01] VITALS: RESP 16
[2019-10-08 14:25] VITALS: BP 110/87; PULSE 52; RESP 17; TEMP 36.6; O2SAT 100
== END 2019-10-08 14:29 | disposition home or self-care (01) ==
PROVIDERS: Emergency Provider Emergency Medicine; PCP Family Medicine
DX: L03.211 Cellulitis of face (principal); I10 Essential (primary) hypertension; Z79.82 Long term (current) use of aspirin; Z79.899 Other long term (current) drug therapy; M79.89 Other specified soft tissue disorders
CPT/HCPCS: 36415; 80053; 83605; 85025; 85610; 85730; 87040; 96365; 96367; 99283; J7040; J7050; A4216

== ENCOUNTER → 2020-01-10 11:28 | Outpatient (CLI) | payer MEDICARE, OTHER, SELFPAY ==
[2020-01-10 15:21] LABS: Absolute Lymphocyte Count 1.11 X10^3/uL (0.83-4.51); Absolute Neutrophil Count 1.8 X10^3/uL (2.0-7.7); Basophil# 0.02 X10^3/uL; Basophil% 0.5 % (0-1); Eosinophil# 0.12 X10^3/uL; Eosinophils% 3.3 % (0-5); Hematocrit 52.6 % (40-54); Hemoglobin 16.7 g/dL (13.0-16.5); Lymphocyte # 1.11 X10^3/ul (4.0); Lymphocyte % 30.1 % (19-41); Mean Corp Hgb Conc 31.7 g/dL (32-36); Mean Corpuscular Hgb 30.1 pg (27.0-32.0); Mean Corpuscular Volume 94.8 fL (80-94); Mean Platelet Vol. 10.8 fl (6.2-12.0); Monocyte# 0.59 X10^3/uL; NRBC Flagged by Analyzer 0 % (0-5); Neutrophil # 1.84 X10^3/uL (2.7-7.7); Neutrophil % 49.8 % (47-70); Platelet Count 182 K/mm3 (150-450); RBC Distribution Width CV 13.2 % (11.6-14.6); RBC Distribution Width SD 46.8 fl (35.1-43.9); Red Blood Count 5.55 M/mm3 (4.6-6.2); White Blood Count 3.7 K/mm3 (4.4-11.0)
[2020-01-10 15:39] LABS: Vitamin B12 495 pg/mL (211-911)
[2020-01-10 16:40] LABS: ALB/GLOB Ratio 1.1 RATIO (0.9-2.4); AST(SGOT) 23 U/L (15-37); Alanine Aminotransfer ALT/SGPT 38 U/L (16-61); Albumin, Serum 3.8 g/dL (3.2-5.0); Alkaline Phosphatase 74 U/L (45-117); Anion Gap 5 (5-15); BUN 19 mg/dL (7-18); Calcium,Total 9.4 mg/dL (8.5-10.1); Chloride 105 mmol/L (98-107); Cholesterol 139 mg/dL (200); Creatinine, Serum 1.12 mg/dL (0.70-1.30); EST Glomerular Filtration Rate 70 mL/min (>60); Est Glom Filt Rate - Afr Amer 84 mL/min (>60); Globulin 3.6 g/dL (2.2-4.2); Glucose 67 mg/dL (74-106); High Density Lipoprotein 44 mg/dL; Potassium 4.3 mmol/L (3.5-5.1); Protein, Total 7.4 g/dL (6.4-8.2); Sodium Level 138 mmol/L (136-145); Thyroid Stim Hormone (TSH) 1.38 uIU/mL (0.358-3.74); Triglycerides 77 mg/dL; Very Low Density Lipoprotein 15 mg/dL (5-40)
[2020-01-16 16:02] LABS: Vitamin B1, Thiamine 128.3 nmol/L (66.5-200.0)
== END ==
PROVIDERS: PCP Family Medicine; Referring Provider Family Medicine; Visit Provider Family Medicine
DX: I10 Essential (primary) hypertension (principal); E53.8 Deficiency of other specified B group vitamins; G62.9 Polyneuropathy, unspecified
CPT/HCPCS: 36415; 80053; 80061; 82607; 82746; 84425; 84443; 85025

== ENCOUNTER 2020-05-17 17:18 | Inpatient (IN) | payer MEDICARE, OTHER, SELFPAY ==
[2020-05-17 17:18] VITALS: BP 141/73; PULSE 62; RESP 18; TEMP 36.6; O2SAT 98; BMI 23.5
[2020-05-17 17:20] VITALS: BP 141/73; PULSE 62; RESP 18; TEMP 36.6; O2SAT 98
[2020-05-17 19:05] LABS: Absolute Lymphocyte Count 1.41 X10^3/uL (0.83-4.51); Absolute Neutrophil Count 2.5 X10^3/uL (2.0-7.7); Basophil# 0.02 X10^3/uL; Basophil% 0.4 % (0-1); Eosinophil# 0.19 X10^3/uL; Hematocrit 49.7 % (40-54); Hemoglobin 16.3 g/dL (13.0-16.5); Lymphocyte # 1.41 X10^3/ul (4.0); Lymphocyte % 29.8 % (19-41); Mean Corp Hgb Conc 32.8 g/dL (32-36); Mean Corpuscular Hgb 30.8 pg (27.0-32.0); Mean Corpuscular Volume 93.8 fL (80-94); Monocyte# 0.61 X10^3/uL; Monocyte% 12.9 % (0-10); NRBC Flagged by Analyzer 0 % (0-5); Neutrophil # 2.49 X10^3/uL (2.7-7.7); Neutrophil % 52.7 % (47-70); Platelet Count 183 K/mm3 (150-450); RBC Distribution Width CV 12.4 % (11.6-14.6); RBC Distribution Width SD 42.8 fl (35.1-43.9); White Blood Count 4.7 K/mm3 (4.4-11.0)
[2020-05-17 19:18] LABS: Anion Gap 2 (5-15); BUN 21 mg/dL (7-18); BUN/Creat Ratio 21.5 RATIO (10-20); Calcium,Total 9.1 mg/dL (8.5-10.1); Chloride 109 mmol/L (98-107); Creatinine, Serum 0.98 mg/dL (0.70-1.30); EST Glomerular Filtration Rate 81 mL/min (>60); Est Glom Filt Rate - Afr Amer 98 mL/min (>60); Estimated Creatinine Clearance 87.42 ml/min; Glucose 85 mg/dL (74-106); Potassium 4.3 mmol/L (3.5-5.1); Sodium Level 142 mmol/L (136-145)
[2020-05-17 19:29] LABS: Lactic Acid 0.8 mmol/L (0.4-1.9)
[2020-05-17 20:27] VITALS: BP 123/65; PULSE 52; RESP 14; TEMP 36.8; O2SAT 96
[2020-05-17 20:30] VITALS: BP 123/65; PULSE 52; RESP 14; TEMP 36.8; O2SAT 96
--- NOTE | 2020-05-17 20:32 | ED.VISSUMM ---
- ER Visit Summary Date of Service: 05/17/20 Chief Complaint: Facial infection History of Present Illness: The patient is a [address] Salinas. He reports that he has an infection to the right side of his jaw that began 5 days ago. He denies any pain. He states that it itches. He denies any dental pain. No hot or cold sensitivity. No pain with eating. Patient saw his primary care physician and was started on Keflex and doxycycline on May 15. He saw planned giving officer yesterday and was placed on Bactroban as well. He is not getting any improvement. He denies any constitutional symptoms. No fever, chills, nausea, or vomiting. He reports he has had this multiple times in the past. Physical Examination: Vitals: Stable. Afebrile. General: Well-nourished and well-developed. Head: Normocephalic atraumatic. Neck: Supple, no lymphadenopathy. No JVD. Nontender. Cardiovascular: Regular rate and rhythm. No murmurs. Respiratory: No respiratory distress. Clear to auscultation bilaterally. Abdominal: Soft, nontender, nondistended, normal bowel sounds. No guarding, rebound, or peritoneal signs. Back: Nontender. Extremities: Nontender, no edema. Skin: Erythema with honey crusting in his acevedo over the right mandible. There is no induration or fluctuance. He also has a small amount of erythema over the left maxilla. Neurologic: Alert and oriented ?3. Cranial nerves II through XII are intact. Normal strength and sensation. Psych: Normal affect. Test Results: CBC shows monocytes 13. Chem-7 shows a chloride of 109 BUN 21. Lactic acid is normal. Emergency Department Course and Treatment: Patient had an IV placed. He was given a dose of vancomycin IV. He is resting comfortably. Treatment Plan: Patient was discussed with Dr. Reyes and will be admitted to hospital for further evaluation and treatment. Disposition: Admitted in stable condition. Impression: 1. Facial cellulitis with failed outpatient treatment. This note was generated with [facility] dictation software. It may contain incorrect words, spelling, and punctuation that were not noted in review of the chart prior to signing ED Disposition - Plan for ED Patient: Referrals: Yony Branch MD [Primary Care Provider] -
[2020-05-17 22:58] VITALS: BP 132/52; PULSE 52; RESP 18; TEMP 36.4; O2SAT 99
[2020-05-17 23:02] VITALS: BMI 23.4
[2020-05-17 23:10] VITALS: BMI 23.4
--- NOTE | 2020-05-18 00:59 | PCM.RX.CS ---
Consult Pharmacy has been consulted to manage selected antiobiotic: Vancomycin Type of Consult: New start Suspected Infection: Skin/Soft tissue Labs: Sodium 142 mmol/L (136-145) 05/17/20 18:50 Potassium 4.3 mmol/L (3.5-5.1) 05/17/20 18:50 Chloride 109 mmol/L (98-107) H 05/17/20 18:50 Carbon Dioxide 31.0 mmol/L (21.0-32.0) 05/17/20 18:50 Anion Gap 2 (5-15) L 05/17/20 18:50 BUN 21 mg/dL (7-18) H 05/17/20 18:50 Creatinine 0.98 mg/dL (0.70-1.30) 05/17/20 18:50 Est GFR (MDRD) Af Amer 98 mL/min (>60) 05/17/20 18:50 Est GFR (MDRD) Non-Af 81 mL/min (>60) 05/17/20 18:50 BUN/Creatinine Ratio 21.5 RATIO (10-20) H 05/17/20 18:50 Glucose 85 mg/dL (74-106) 05/17/20 18:50 Goal Trough: 10-15 mcg/mL Pharmacy Plan for Drug Dosing: Pharmacy Service will continue to monitor and adjust dosing as required. Medications Vancomycin HCl (Vancomycin) 1,000 mg in 200 mls @ 200 mls/hr IV Q12H [facility] Discontinued Medications Vancomycin HCl 1,250 mg/ (Sodium Chloride) 275 mls @ 167 mls/hr IV X1 ONE Stop: 05/17/20 20:08 Last Admin: 05/17/20 21:33 Dose: Infused Documented by: Follow-Up Labs: Trough Vancomycin Labs to be done on [date and time ordered]: 05/19 @ 3365
[2020-05-18 05:19] VITALS: BP 116/56; PULSE 52; RESP 18; TEMP 36.6; O2SAT 97
[2020-05-18 06:05] LABS: Absolute Lymphocyte Count 1.51 X10^3/uL (0.83-4.51); Absolute Neutrophil Count 2.5 X10^3/uL (2.0-7.7); Basophil# 0.02 X10^3/uL; Basophil% 0.4 % (0-1); Eosinophil# 0.19 X10^3/uL; Eosinophils% 3.9 % (0-5); Hematocrit 47.2 % (40-54); Hemoglobin 15.2 g/dL (13.0-16.5); Lymphocyte # 1.51 X10^3/ul (4.0); Lymphocyte % 31.1 % (19-41); Mean Corp Hgb Conc 32.2 g/dL (32-36); Mean Corpuscular Hgb 30.4 pg (27.0-32.0); Mean Corpuscular Volume 94.4 fL (80-94); Mean Platelet Vol. 9.9 fl (6.2-12.0); Monocyte# 0.61 X10^3/uL; Monocyte% 12.6 % (0-10); NRBC Flagged by Analyzer 0 % (0-5); Neutrophil # 2.53 X10^3/uL (2.7-7.7); Platelet Count 162 K/mm3 (150-450); RBC Distribution Width CV 12.4 % (11.6-14.6); RBC Distribution Width SD 43.5 fl (35.1-43.9); White Blood Count 4.9 K/mm3 (4.4-11.0)
--- NOTE | 2020-05-18 06:20 | HP.PCM_ITS ---
Problem List (1) Failure of outpatient treatment Status: Acute (2) Facial cellulitis Status: Acute History of Present Illness Date of Admission: 05/17/20 Chief Complaint: swelling of right face The patient is a 69 year old M with a significant story of high blood pressure who presents emergency department with facial skin changes. He reports erythema and swelling of his left infraorbital area. Also he had swelling and erythema of his left cheek. He was put on TWO p.o. antibiotics. 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 He has been putting the Bactroban on his right cheek. Past Medical History Medical History: Medical History (Last Reviewed 05/18/20 @ 08:[address] Chao Reyes MD) HTN (hypertension) I10 Allergies Penicillins Allergy (Verified 05/17/20 17:20) from childhood Home Medications: Ambulatory Orders Medication Instructions Recorded Aspirin [Aspirin, Baby] 81 mg PO DAILY@0800 08/27/17 Diltiazem HCl [Cartia Xt] 240 mg PO DAILY 11/12/18 Folic Acid 0.8 mg PO DAILY 11/12/18 Lisinopril [Zestril] 10 mg PO DAILY 11/12/18 Pyridoxine HCl [Vitamin B6] 100 mg PO DAILY 11/12/18 Vitamin E 400 unit PO DAILY 11/12/18 Cephalexin [Keflex] 500 mg PO 4X/DAY 10/08/19 Doxycycline 100 mg PO BID 10/08/19 Loratadine 10 mg PO DAILY 05/17/20 Surgical History: - - Surgery of muscles of bilateral eyes. Psychiatric History: No pertinent psych hx Smoking Status: Never smoker - *Family History Maternal History Items: Hypertension Paternal History Items: Diabetes Review of Systems Constitutional: Denies: Chills, Fever, Weight Change HEENT: Denies: Head Aches, Sinus Congestion, Sinus Drainage Cardiovascular: Denies: Chest Pain, Palpitations Respiratory: Denies: Cough, Shortness of breath at rest, Sputum production Gastrointestinal: Denies: Abdominal Pain, Nausea, Vomiting Genitourinary: Denies: Dysuria Musculoskeletal: Denies: Joint Pain, Joint Tenderness Skin: Reports: Skin Changes - Right cheek; and left infraorbital area. Denies: Wounds Neurological: Denies: Numbness, Tingling, Focal weakness Psychiatric: Denies: Anxiety, Depression, Homicidal Ideations, Suicidal Ideations Hematologic/ Lymphatic: Denies: Easy Bruising, Easy Bleeding VTE Information - Inpt Only VTE Present on Admission: No VTE Mechan Device Prophylaxis: None VTE Pharm Prophylaxis ordered?: Yes Patient Problems: Active and Suspected Problems (Last Updated 05/18/20 @ 06:[address] Chao Reyes MD) Failure of outpatient treatment (Acute) Facial cellulitis (Acute) - Physical Exam Vitals/I&O's: Vital Signs Temp Pulse Resp BP Pulse Ox 97.9 F 52 L 18 116/56 L 97 05/18/20 05:19 05/18/20 05:19 05/18/20 05:19 05/18/20 05:19 05/18/20 05:19 Oxygen Delivery Method Room Air Weight: 85 kg Body Mass Index (BMI) 23.4 Intake and Output for Last 24 Hours 05/16/20 05/17/20 05/18/20 23:59 23:59 23:59 Intake Total 275 / 275 712 / 712 Balance 275 / 275 712 / 712 General: Alert, Oriented x3, Cooperative HEENT: Atraumatic, PERRLA, EOMI, Normocephalic Neck: Supple, No JVD, Negative Carotid Bruits Lungs: Clear to auscultation, Normal air movement Cardiovascular: Regular rate, No murmurs Abdomen: Bowel Sounds Present, Soft, Non Tender Extremities: No edema, Capillary Refill Less than 3 Seconds Skin: - - Erythema and swelling of left infraorbital area. Erythema swelling and induration of right cheek and with drainage. Musculoskeletal: No Tenderness to Palpation of Joints or Extremities Neurological: Cranial nerves II-XII grossly intact Psych/Mental Status: Normal Affect, Appropriate Laboratory Results 05/17/20 18:50: WBC 4.7, RBC 5.30, Hgb 16.3, Hct 49.7, MCV 93.8, MCH 30.8, MCHC 32.8, RDW Std Deviation 42.8, RDW Coeff of Sukhwinder 12.4, Plt Count 183, MPV 10.0, Immature Gran % (Auto) 0.200, Neut % (Auto) 52.7, Lymph % (Auto) 29.8, [place] % (Auto) 12.9 H, Eos % (Auto) 4.0, Baso % (Auto) 0.4, Absolute Neuts (auto) 2.5, Absolute Lymphs (auto) 1.41, Nucleated RBC % 0 05/17/20 18:50: Sodium 142, Potassium 4.3, Chloride 109 H, Carbon Dioxide 31.0, Anion Gap 2 L, BUN 21 H, Creatinine 0.98, Estim Creat Clear Calc 87.42, Est GFR (MDRD) Af Amer 98, Est GFR (MDRD) Non-Af 81, BUN/Creatinine Ratio 21.5 H, Glucose 85, Calcium 9.1 05/17/20 18:50: Lactic Acid 0.8 05/18/20 05:46: WBC 4.9, RBC 5.00, Hgb 15.2, Hct 47.2, MCV 94.4 H, MCH 30.4, MCHC 32.2, RDW Std Deviation 43.5, RDW Coeff of Sukhwinder 12.4, Plt Count 162, MPV 9.9, Immature Gran % (Auto) 0.000, Neut % (Auto) 52.0, Lymph % (Auto) 31.1, [place] % (Auto) 12.6 H, Eos % (Auto) 3.9, Baso % (Auto) 0.4, Absolute Neuts (auto) 2.5, Absolute Lymphs (auto) 1.51, Nucleated RBC % 0 05/18/20 05:46: Sodium Pending, Potassium Pending, Chloride Pending, Carbon Dioxide Pending, Anion Gap Pending, BUN Pending, Creatinine Pending, Est GFR (MDRD) Af Amer Pending, Est GFR (MDRD) Non-Af Pending, BUN/Creatinine Ratio Pending, Glucose Pending, Calcium Pending Current Medications Acetaminophen (Acetaminophen 325 Mg Tablet) 650 mg PO Q6H PRN PRN PRN Reason: Pain Score 1-10/Temp > 100.7 F Enoxaparin Sodium (Enoxaparin 40 Mg/0.4 Ml Syringe) 40 mg SC DAILY [facility] Vancomycin IV Pharmacy to Dose (1 ea/ Sodium Chloride) 500 mls @ 250 mls/hr IV X1 PRN; Protocol PRN Reason: Rx to Dose Clindamycin Phosphate 900 mg/ (Dextrose) 106 mls @ 150 mls/hr IV Q8 [facility] Last Infusion: 05/18/20 06:20 Dose: Infused Documented by: Sodium Chloride () 250 mls @ 15 mls/hr IV .[id number] PRN PRN Reason: Saline Flush Last Admin: 05/17/20 23:51 Dose: 15 mls/hr Documented by: Sodium Chloride () 250 mls @ 15 mls/hr IV .[id number] PRN PRN Reason: Additional IVPB Infusion Vancomycin HCl (Vancomycin) 1,000 mg in 200 mls @ 200 mls/hr IV Q12H [facility] Melatonin (Melatonin 3 Mg Tablet) 3 mg PO QHS PRN PRN PRN Reason: INSOMNIA Ondansetron HCl (Ondansetron 4 Mg/2 Ml Vial) 4 mg IV Q8H PRN PRN PRN Reason: NAUSEA/VOMITING Senna/Docusate Sodium (Senna/Docusate Sodium 1 Tablet) 2 tablet PO BID PRN PRN PRN Reason: Constipation Sodium Chloride (0.9% Saline Lock 10 Ml Syringe) 10 - 40 ml IV UD PRN PRN Reason: SALINE FLUSH Assessment/Plan All Active Problems (Last Updated 05/18/20 @ 06:[address] Chao Reyes MD) Failure of outpatient treatment (Acute) Facial cellulitis (Acute) The patient is a 69 year old M with a significant story of high blood pressure who presents emergency department with a facial skin changes who has tried outpatient antibiotics without success. Facial cellulitis Was started on vancomycin at emergency department. Vancomycin continued. Would add clindamycin IV Trend CBC and BMP Continue Bactroban started at home Hypertension Blood pressure is not within goal Cardizem and lisinopril continued Trend blood pressure and adjust blood pressure medications. DVT Prophylaxis Subcutaneous Lovenox [id number] Inpatient E&M: 47858 Init Hosp L3
[2020-05-18 06:42] LABS: Anion Gap 1 (5-15); BUN 18 mg/dL (7-18); BUN/Creat Ratio 19.1 RATIO (10-20); Calcium,Total 8.9 mg/dL (8.5-10.1); Chloride 109 mmol/L (98-107); Creatinine, Serum 0.94 mg/dL (0.70-1.30); EST Glomerular Filtration Rate 85 mL/min (>60); Est Glom Filt Rate - Afr Amer 103 mL/min (>60); Estimated Creatinine Clearance 91.14 ml/min; Glucose 81 mg/dL (74-106); Potassium 3.9 mmol/L (3.5-5.1); Sodium Level 143 mmol/L (136-145)
[2020-05-18] MEDS: Vancomycin IV 1,000 MG/200 ML BAG 200 MG IV (07:01)
[2020-05-18 07:55] VITALS: BP 111/46; PULSE 53; RESP 18; TEMP 36.6; O2SAT 98
[2020-05-18] MEDS: Enoxaparin 40 MG/0.4 ML Syringe SC (08:02)
[2020-05-18] MEDS: Mupirocin Ointment 22gm Tube 1 APPLIC TOPICAL ×2 (08:04→21:03)
[2020-05-18 14:00] VITALS: BP 119/44; PULSE 52; RESP 18; TEMP 36.6; O2SAT 96
--- NOTE | 2020-05-18 14:21 | CM.UR ---
RN CM Assessment Introduced role of RN CM to patient.? Patient is alert, oriented and able?to participate in RN CM Assessment. ?Care providers, pharmacy, and demographics verified. Presentation: left facial swelling and erythema Admit Dx: Periorbital Cellulitis Re-Admit: No Barriers/Issues: None PCP: Yony Branch Specialists: Dermatology, Dr. Manzano Preferred Pharmacy: [facility] Insurance: [facility] A[facility], MMO Rx Benefit:?Yes ?LNOK: Lenka Turcios LW/HPOA: No, Declines offered information Living Arrangements:?Lives with in a SS Home, 3 steps to enter ADL?s: Independent with ambulation and ADLs Transportation: Patient drives, will transport on DC DME: None HHC: None SNF: None Goal: Home, does not think will have any needs. Denies issues, questions or concerns. DC PLAN: Home with no anticipated needs identified at this time. Alerted patient that case management will remain available should any needs arise. Verb understanding. Nava Montemayor RN, CCM.
--- NOTE | 2020-05-18 15:19 | PCM.HOSP.N ---
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 Patient has recurrent on and off swelling of the left infraorbital region. 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 Was started on Bactroban cream. There is a small area of infection on the right acevedo seems superficial gram-positive infection, small impetigo. Patient is on clindamycin 900 mg IV every 8 hourly along with Bactroban cream. Will discontinue vancomycin. Other than that he has hypertension for which he is on Cardizem and lisinopril. Blood pressure is normal today. On exam Yellow color crust on the right face. No mucosal involvement on [place] exam. No buccal mucosal tenderness. DVT Prophylaxis Subcutaneous Lovenox [id number]
[2020-05-18 20:45] VITALS: BP 125/67; PULSE 58; RESP 16; TEMP 36.5; O2SAT 98
[2020-05-18 21:20] LABS: M R Staph aureus DNA By PCR Negative (Negative); Probe Check PASS; Specimen Processing Control PASS
[2020-05-19 02:45] VITALS: BP 127/62; PULSE 50; RESP 16; TEMP 36.3; O2SAT 98
[2020-05-19 06:36] LABS: Vancomycin, Trough Level 5.2 ug/mL (5.0-15.0)
--- NOTE | 2020-05-19 08:00 | DS.PCM_ITS ---
Discharge Date and Diagnosis - Problem List Patient Problems: Active and Suspected Problems (Last Reviewed 05/18/20 @ 08:[address] Chao Reyes MD) Failure of outpatient treatment (Acute) Facial cellulitis (Acute) Date of Admission: 05/17/20 Date of Discharge: 05/19/20 - Primary Discharge Diagnosis Acute Problems: Active Problems (Last Reviewed 05/18/20 @ 08:[address] Chao Reyes MD) Failure of outpatient treatment (Acute) Facial cellulitis (Acute) Hospital Course and Treatment Operations: None Summary of Care Provided: The patient is a 69 year old M with history of hypertension was admitted with right facial cellulitis who took 2 days of oral antibiotics Keflex and doxycycline and Bactroban. Patient saw static balancer a day before admission. Patient was admitted on [facility] floor and started on IV clindamycin and vancomycin. During the hospital stay, patient got clindamycin and Levaquin. Patient tenderness, induration got better but is still erythema present. No mucosal involvement. Patient is not allergic to sulfa drugs but penicillin. Tolerated Keflex well. Patient has 7 days of oral Keflex at home. Discharged on Bactrim DS 1 tablet twice daily for 7 more days along with Keflex. Apply Bactroban on this area face twice daily. He has other comorbidities hypertension: Blood pressure is controlled. On lisinopril and Cardizem. Discharge medication reconciliation done. Discharge follow-up instructions completed. Discharge process discussed with the patient and all questions were answered to patient's satisfaction. Discharge medications and action and duration of antibiotics discussed with the patient and his present in the room. Total time spent, exact 35 minutes on discharge meds reconciliation, examination, coordination of care with nurses and ancillary staff, review of imaging and blood test and discussion with the patient on follow-up instructions Patient Problems: Active and Suspected Problems (Last Reviewed 05/18/20 @ 08:[address] Chao Reyes MD) Failure of outpatient treatment (Acute) Facial cellulitis (Acute) Objective: Seen and examined. Heart rate and blood pressure are in normal range. No fever. Heart rate 60 per night. Physical exam General: Alert, Oriented x3, Cooperative HEENT: Atraumatic, PERRLA, EOMI, Normocephalic Oral: No Gingival or Mucosal Lesions/ Ulcerations Neck: Supple, No JVD, Negative Carotid Bruits Lungs: Air entry diminished in bilateral lung bases. No crepitation/rhonchi Cardiovascular: Regular rate, Regular Rhythm, Normal S1, Normal S2, No murmurs Abdomen: Bowel Sounds Present, Soft, Non Tender, Non-Distended : No renal angle tenderness. No suprapubic tenderness. Extremities: No edema, Capillary Refill Less than 3 Seconds Skin: Mild erythema over right face near acevedo area. No mucosal involvement. No tenderness. Mild induration improved. Musculoskeletal: No Tenderness to Palpation of Joints or Extremities Neurological: Cranial nerves II-XII grossly intact, Deep Tendon Reflexes 2+/4 and Symmetrical, Neuro grossly intact Psych/Mental Status: Normal Affect, Appropriate. - Physical Exam Vitals/I&O's: Vital Signs Temp Pulse Resp BP Pulse Ox 97.4 F L 50 L 16 127/62 H 98 05/19/20 02:45 05/19/20 02:45 05/19/20 02:45 05/19/20 02:45 05/19/20 02:45 Oxygen Delivery Method Room Air Weight: 187 lb 6.287 oz Body Mass Index (BMI) 23.4 Intake and Output for Last 24 Hours 05/17/20 05/18/20 05/19/20 23:59 23:59 23:59 Intake Total 275 / 275 2484.25 / 3084.25 1120.75 / 1120.75 Output Total 1300 / 2600 1974 Balance 275 / 275 1184.25 / 484.25 -854.25 / -854.25 Laboratory Results 05/18/20 18:00: MRSA (PCR) Negative 05/19/20 06:00: Vancomycin Trough 5.2 Current Medications Acetaminophen (Acetaminophen 325 Mg Tablet) 650 mg PO Q6H PRN PRN PRN Reason: Pain Score 1-10/Temp > 100.7 F Enoxaparin Sodium (Enoxaparin 40 Mg/0.4 Ml Syringe) 40 mg SC DAILY [facility] Last Admin: 05/18/20 08:02 Dose: 40 mg Documented by: Clindamycin Phosphate 900 mg/ (Dextrose) 106 mls @ 150 mls/hr IV Q8 [facility] Last Infusion: 05/19/20 06:03 Dose: Infused Documented by: Sodium Chloride () 250 mls @ 15 mls/hr IV .[id number] PRN PRN Reason: Saline Flush Last Infusion: 05/19/20 06:03 Dose: 15 mls/hr Documented by: Sodium Chloride () 250 mls @ 15 mls/hr IV .[id number] PRN PRN Reason: Additional IVPB Infusion Lactobacillus Acidophilus (Lactobacillus Acidophilus) 1 tablet PO TID [facility] Last Admin: 05/19/20 05:20 Dose: 1 tablet Documented by: Melatonin (Melatonin 3 Mg Tablet) 3 mg PO QHS PRN PRN PRN Reason: INSOMNIA Mupirocin (Mupirocin Ointment 22gm Tube) 1 applic TOPICAL BID [facility]; Protocol Last Admin: 05/18/20 21:03 Dose: 1 applicatio Documented by: Ondansetron HCl (Ondansetron 4 Mg/2 Ml Vial) 4 mg IV Q8H PRN PRN PRN Reason: NAUSEA/VOMITING Senna/Docusate Sodium (Senna/Docusate Sodium 1 Tablet) 2 tablet PO BID PRN PRN PRN Reason: Constipation Sodium Chloride (0.9% Saline Lock 10 Ml Syringe) 10 - 40 ml IV UD PRN PRN Reason: SALINE FLUSH Home Medications: Medications to take at Discharge Aspirin [Aspirin, Baby] 81 mg PO DAILY@0800 08/27/17 Diltiazem HCl [Cartia Xt] 240 mg PO DAILY 11/12/18 Folic Acid 0.8 mg PO DAILY 11/12/18 Lisinopril [Zestril] 10 mg PO DAILY 11/12/18 Pyridoxine HCl [Vitamin B6] 100 mg PO DAILY 11/12/18 Vitamin E 400 unit PO DAILY 11/12/18 Cephalexin [Keflex] 500 mg PO 4X/DAY 10/08/19 Loratadine 10 mg PO DAILY 05/17/20 Lactobacillus Acidophilus [Acidophilus] 1 tab PO TID tab 05/19/20 Mupirocin [Bactroban] 1 applic TOPICAL BID #1 tube 05/19/20 Smz/Tmp Ds [Bactrim Ds] 1 tab PO BID #14 tab 05/19/20 Following Prescriptions Were Given to Patient: Smz/Tmp Ds [Bactrim Ds] 1 tab PO BID #14 tab Transmission Status: Received by [facility] [employer] #[id number] Mupirocin [Bactroban] 1 applic TOPICAL BID #1 tube Transmission Status: Received by [facility] #[id number] Primary Care Physician: Yony Branch MD [Primary Care Provider] - Medical Necessity - Tobacco Use Smoking Status: Never smoker Meaningful Use Info Meaningful Use Diagnoses (Choose all that apply): None applicable Inpatient E&M: 47483 Disch Hosp
--- NOTE | 2020-05-19 08:00 | DCINST_ITS ---
- Discharge Diagnoses Current Active Problems: Current Active and Chronic Problems (Last Reviewed 05/18/20 @ 08:[address] Chao Reyes MD) Failure of outpatient treatment (Acute) Facial cellulitis (Acute) You will use the following diet at home:: Cardiac Your food should be the consistency of: Regular Discharge Activity: May Not Drive - For 5 days Weight Bearing Status: Weight bearing as tolerated Call your doctor if you observe: Fever of 101 or Higher, Coldness, Increased Pain, Numbness or Tingling, Change in Color, Inability to urinate, Inability to have a bowel movement, Shortness of breath, Dizziness, Fainting spells, Swelling in the ankles, Chest pain, Prolonged hiccoughing, Uncontrolled pain Additional Instructions: Advised 5 more days of oral antibiotic Keflex and Bactrim DS. Patient has Keflex of 7 days duration. Apply Bactroban on the right side of face Follow-up with sprue knocker in 3 to 4 weeks Allergies/Adverse Reactions: Allergies Penicillins Allergy (Verified 05/17/20 17:20) from childhood Medications to take at Discharge Aspirin [Aspirin, Baby] 81 mg PO DAILY@0800 08/27/17 Diltiazem HCl [Cartia Xt] 240 mg PO DAILY 11/12/18 Folic Acid 0.8 mg PO DAILY 11/12/18 Lisinopril [Zestril] 10 mg PO DAILY 11/12/18 Pyridoxine HCl [Vitamin B6] 100 mg PO DAILY 11/12/18 Vitamin E 400 unit PO DAILY 11/12/18 Cephalexin [Keflex] 500 mg PO 4X/DAY 10/08/19 Loratadine 10 mg PO DAILY 05/17/20 Lactobacillus Acidophilus [Acidophilus] 1 tab PO TID tab 05/19/20 Mupirocin [Bactroban] 1 applic TOPICAL BID #1 tube 05/19/20 Smz/Tmp Ds [Bactrim Ds] 1 tab PO BID #14 tab 05/19/20 The following prescriptions were given: Smz/Tmp Ds [Bactrim Ds] 1 tab PO BID #14 tab Transmission Status: Pending to [facility] #[id number] Mupirocin [Bactroban] 1 applic TOPICAL BID #1 tube Transmission Status: Pending to [facility] #[id number] Primary Care Physician: Yony Branch MD [Primary Care Provider] - Please follow up with your Primary Care Physician in: In 1 to 2 weeks. Test Results: Test results from this visit will be discussed in further detail at your follow- up appointment, if applicable.
[2020-05-19 08:45] VITALS: BP 125/64; PULSE 59; RESP 18; TEMP 36.3; O2SAT 97
[2020-05-19] MEDS: Mupirocin Ointment 22gm Tube 1 APPLIC TOPICAL (09:25)
[2020-05-19] MEDS: Enoxaparin 40 MG/0.4 ML Syringe SC (09:25)
[2020-05-19] MEDS: levoFLOXacin IV 750 MG/150 ML BAG 100 MG IV (11:33)
[2020-05-19 13:38] VITALS: BP 117/56; PULSE 60; RESP 18; TEMP 36.5; O2SAT 98
== END 2020-05-19 13:55 | disposition home or self-care (01) | DRG 603 ==
LOC: ED 20:32 → MS3 21:42
PROVIDERS: Admitting Provider Hospitalist; Emergency Provider Emergency Medicine; PCP Family Medicine; Visit Provider Internal Medicine
DX: L03.211 Cellulitis of face (principal); L01.00 Impetigo, unspecified; I10 Essential (primary) hypertension; Z79.82 Long term (current) use of aspirin; Z79.899 Other long term (current) drug therapy
CPT/HCPCS: 36415; 80048; 80202; 83605; 85025; 87040; 87641; 99284; J7030; J7050

== ENCOUNTER → 2020-06-12 09:37 | Outpatient (CLI) | payer MEDICARE, OTHER, SELFPAY ==
[2020-06-12 10:17] LABS: Absolute Lymphocyte Count 1.19 X10^3/uL (0.83-4.51); Absolute Neutrophil Count 1.9 X10^3/uL (2.0-7.7); Basophil# 0.02 X10^3/uL; Basophil% 0.5 % (0-1); Eosinophil# 0.23 X10^3/uL; Eosinophils% 5.8 % (0-5); Hematocrit 49.8 % (40-54); Lymphocyte # 1.19 X10^3/ul (4.0); Mean Corp Hgb Conc 32.1 g/dL (32-36); Mean Corpuscular Hgb 30.4 pg (27.0-32.0); Mean Corpuscular Volume 94.5 fL (80-94); Mean Platelet Vol. 9.7 fl (6.2-12.0); Monocyte# 0.64 X10^3/uL; Monocyte% 16.1 % (0-10); NRBC Flagged by Analyzer 0 % (0-5); Neutrophil # 1.88 X10^3/uL (2.7-7.7); Neutrophil % 47.3 % (47-70); Platelet Count 181 K/mm3 (150-450); RBC Distribution Width CV 12.4 % (11.6-14.6); RBC Distribution Width SD 43.4 fl (35.1-43.9); Red Blood Count 5.27 M/mm3 (4.6-6.2)
[2020-06-12 11:55] LABS: ALB/GLOB Ratio 1.1 RATIO (0.9-2.4); AST(SGOT) 19 U/L (15-37); Alanine Aminotransfer ALT/SGPT 28 U/L (16-61); Albumin, Serum 3.6 g/dL (3.2-5.0); Alkaline Phosphatase 72 U/L (45-117); Anion Gap 4 (5-15); BUN 18 mg/dL (7-18); BUN/Creat Ratio 16.2 RATIO (10-20); Chloride 104 mmol/L (98-107); Cholesterol 166 mg/dL (200); Creatinine, Serum 1.11 mg/dL (0.70-1.30); EST Glomerular Filtration Rate 70 mL/min (>60); Est Glom Filt Rate - Afr Amer 85 mL/min (>60); Globulin 3.4 g/dL (2.2-4.2); Glucose 79 mg/dL (74-106); High Density Lipoprotein 53 mg/dL; Potassium 4.3 mmol/L (3.5-5.1); Sodium Level 139 mmol/L (136-145); Thyroid Stim Hormone (TSH) 1.66 uIU/mL (0.358-3.74); Triglycerides 68 mg/dL; Very Low Density Lipoprotein 14 mg/dL (5-40)
== END ==
PROVIDERS: PCP Family Medicine; Referring Provider Family Medicine; Visit Provider Family Medicine
DX: I10 Essential (primary) hypertension (principal); E53.8 Deficiency of other specified B group vitamins; E53.1 Pyridoxine deficiency; Z86.39 Personal history of other endocrine, nutritional and metabolic disease
CPT/HCPCS: 36415; 80053; 80061; 82306; 82746; 84443; 85025

== ENCOUNTER 2020-12-21 11:05 | Emergency (ER) | payer MEDICARE, OTHER, SELFPAY ==
[2020-12-21 11:07] VITALS: BP 125/60; PULSE 75; RESP 14; TEMP 36.3; O2SAT 99; BMI 24.8
--- NOTE | 2020-12-21 11:25 | EDS_ITS ---
HPI History of Present Illness Chief Complaint: Eye Problem Informant: patient Narrative Narrative: 70-year-old male presents the emergency room with facial cellulitis. Patient states that this has been a recurrent issue over the past several years. He saw his prepared foods associate on began oral doxycycline clindamycin topically and metronidazole topically. He states that the erythema has worsened around the left eye and onto the forehead. No fevers. He states that he does have underlying rosacea. He states that he has had to be hospitalized for this in the past. He wonders if the metronidazole has been making him worse so he discontinued that. [facility] Medical History HTN (hypertension) Home Medications aspirin 81 mg PO DAILY@0800 08/27/17 [History Last Taken 11/12/18] diltiazem HCl 240 mg PO DAILY 11/12/18 [History Last Taken 11/12/18] folic acid 0.8 mg PO DAILY 11/12/18 [History Last Taken 11/12/18] lisinopril 10 mg PO DAILY 11/12/18 [History Last Taken 11/12/18] pyridoxine (vitamin B6) 100 mg PO DAILY 11/12/18 [History Last Taken 11/12/18] vitamin E 400 unit PO DAILY 11/12/18 [History Last Taken 11/12/18] Loratadine 10 mg PO DAILY 05/17/20 [History Last Taken Unknown] acidophilus-pectin, citrus 1 tab PO TID tab 05/19/20 [Rx Last Taken Unknown] mupirocin 1 applic TOPICAL BID #1 tube 05/19/20 [Rx Last Taken Unknown] clindamycin phosphate 1 applic TOPICAL QHS 12/21/20 [History Last Taken Unknown] doxycycline monohydrate 100 mg PO BID 12/21/20 [History Last Taken Unknown] metronidazole 1 applic TOPICAL DAILY 12/21/20 [History Last Taken Unknown] Allergy/AdvReac Type Severity Reaction Status Date / Time Penicillins Allergy from Verified 12/21/20 12:11 childhood Sulfa (Sulfonamide Allergy Rash Verified 12/21/20 11:07 Antibiotics) Social History (Updated 12/21/20 @ 11:[address] Dimitrios Cuadra DO) Smoking Status: Never smoker substance use type: does not use ROS ROS ED Constitutional Constitutional ED: Denies chills or weight loss Eyes Eyes: Denies change in vision or diplopia ENT ENT ED: Denies ear pain, rhinorrhea or sore throat Cardiovascular Cardiovascular: Denies chest pain, orthopnea, palpitations or racing heartbeat Respiratory/Chest Respiratory/Chest: Denies cough, dyspnea or orthopnea Gastrointestinal Gastrointestinal: Denies abdominal pain, diarrhea, nausea or vomiting Genitourinary Genitourinary ED: Denies dysuria, hematuria or urinary frequency Musculoskeletal Musculoskeletal: Denies arthralgias or myalgias Integumentary Reports rash; Denies abscess Neurologic Neurologic: Denies headache(s) or weakness Psychiatric Psychiatric: Denies anxiety, depression, suicidal ideation or suicidal thoughts Endocrine Endocrinology: Denies polydipsia, polyphagia or polyuria Allergic/Immunologic Allergic/Immunologic ED: Denies mouth swelling, tongue swelling or urticaria EXAM Physical Exam Const Vital Signs: 12/21/20 11:07 Temperature 97.3 F L Temperature Source Temporal Pulse Rate 75 Respiratory Rate 14 Blood Pressure 125/60 H Blood Pressure Mean 81 Pulse Ox 99 Oxygen Delivery Method Room Air Positive well nourished and well developed General Appearance ED: well developed HEENT Reports normocephalic, head/scalp atraumatic and moist mucous membranes atraumatic; Negative for tenderness Eyes PERRL and EOMs intact bilaterally General Eye ED: Yes normal appearance of both eyes Neck no lymphadenopathy, supple and no JVD Resp normal respiratory effort and clear to auscultation bilaterally Cardio regular rate, regular rhythm and no murmurs GI normal to inspection, nondistended, normoactive bowel sounds and non-tender Palpation: soft Back/Spine no CVA tenderness and normal ROM Extremity normal to inspection General Extremety ED: Negative for edema General Extremity: Negative for edema Neuro oriented x3 and CN's II-XII intact bilaterally Sensorium / Orientation: alert Motor Exam: strength 5/5 throughout Psych mental status grossly normal Mood & Affect: Negative for depressed or tearful Skin no rashes or lesions noted and no wounds Skin Narrative: The nose is erythematous. There is erythematous and mild edema in the right periorbital region extending up onto the mid and left forehead. Minimal symptoms on the right side of his face MDM MDM MDM Narrative Medical decision making narrative: CBC CMP lactic acid were obtained and negative. White count is 4.2. Patient received clindamycin and vancomycin IV. Blood cultures were obtained prior to antibiotics. At this point patient will be discharged home. Advised early follow-up with his prepared foods associate Lab Data Attestation: I reviewed the patient's lab results. Discharge Plan Triage Chief Complaint: Eye Problem ED Provider: Dimitrios Cuadra Dx/Rx/DC Orders Clinical Impression: Facial cellulitis Instructions: ED Cellulitis, Facial Prescriptions: No Action aspirin 81 MG tablet,chewable 81 mg PO DAILY@0800 RF: 0 diltiazem HCl 240 MG capsule,extended release 24hr 240 mg PO DAILY RF: 0 lisinopril 10 MG tablet 10 mg PO DAILY RF: 0 pyridoxine (vitamin B6) 50 MG tablet 100 mg PO DAILY RF: 0 vitamin E 400 UNIT capsule 400 unit PO DAILY RF: 0 folic acid 0.8 MG tablet 0.8 mg PO DAILY RF: 0 Loratadine 10 mg PO DAILY RF: 0 acidophilus-pectin, citrus 1 TABLET tablet 1 tab PO TID RF: 0 mupirocin 1 APPLIC ointment 1 applic TOPICAL BID Qty: 1 RF: 2 doxycycline monohydrate 100 mg Capsule 100 mg PO BID RF: 0 metronidazole 0.75 % Gel 1 applic TOPICAL DAILY RF: 0 clindamycin phosphate 1 % Lotion 1 applic TOPICAL QHS RF: 0 Primary Care Provider: Yony Branch Referrals: Yony Branch MD [Primary Care Provider] - As Needed Activity Restrictions/Additional Instructions: Please follow-up with your prepared foods associate.
[2020-12-21 12:12] LABS: Absolute Lymphocyte Count 1.09 X10^3/uL (0.83-4.51); Absolute Neutrophil Count 2.4 X10^3/uL (2.0-7.7); Basophil# 0.03 X10^3/uL; Basophil% 0.7 % (0-1); Eosinophil# 0.17 X10^3/uL; Hematocrit 49.5 % (40-54); Lymphocyte # 1.09 X10^3/ul (0.83-4.51); Lymphocyte % 25.7 % (19-41); Mean Corp Hgb Conc 32.3 g/dL (32-36); Mean Corpuscular Hgb 30.3 pg (27.0-32.0); Mean Corpuscular Volume 93.8 fL (80-94); Monocyte# 0.53 X10^3/uL; Monocyte% 12.5 % (0-10); NRBC Flagged by Analyzer 0 % (0-5); Neutrophil % 56.6 % (47-70); Platelet Count 176 K/mm3 (150-450); RBC Distribution Width CV 12.1 % (11.6-14.6); RBC Distribution Width SD 42.4 fl (35.1-43.9); Red Blood Count 5.28 M/mm3 (4.6-6.2); White Blood Count 4.2 K/mm3 (4.4-11.0)
[2020-12-21 12:28] LABS: AST(SGOT) 20 U/L (15-37); Alanine Aminotransfer ALT/SGPT 24 U/L (16-61); Albumin, Serum 3.6 g/dL (3.2-5.0); Alkaline Phosphatase 59 U/L (45-117); Anion Gap 5 (5-15); BUN 16 mg/dL (7-18); BUN/Creat Ratio 14.2 RATIO (10-20); Calcium,Total 9.3 mg/dL (8.5-10.1); Chloride 106 mmol/L (98-107); Creatinine, Serum 1.13 mg/dL (0.70-1.30); EST Glomerular Filtration Rate 69 mL/min (>60); Est Glom Filt Rate - Afr Amer 83 mL/min (>60); Estimated Creatinine Clearance 74.78 ml/min; Globulin 3.6 g/dL (2.2-4.2); Glucose 77 mg/dL (74-106); Potassium 4.2 mmol/L (3.5-5.1); Protein, Total 7.2 g/dL (6.4-8.2); Sodium Level 143 mmol/L (136-145)
[2020-12-21 12:45] LABS: Lactic Acid 1.3 mmol/L (0.4-1.9)
[2020-12-21 13:25] VITALS: BP 119/62
[2020-12-21 15:40] VITALS: RESP 15
[2020-12-21 16:50] VITALS: BP 123/54; PULSE 49; RESP 15
== END 2020-12-21 16:51 | disposition home or self-care (01) ==
LOC: ED 11:47
PROVIDERS: Emergency Provider Emergency Medicine; PCP Family Medicine
DX: L03.211 Cellulitis of face (principal); I10 Essential (primary) hypertension; Z79.82 Long term (current) use of aspirin; Z79.899 Other long term (current) drug therapy
CPT/HCPCS: 80053; 83605; 85025; 87040; 96365; 96367; 99284; J7040; J7050; A4216

== ENCOUNTER → 2021-04-21 09:30 | Outpatient (CLI) | payer MEDICARE, OTHER, SELFPAY ==
[2021-04-21 12:05] LABS: Absolute Lymphocyte Count 2.73 X10^3/uL (0.83-4.51); Absolute Neutrophil Count 5.6 X10^3/uL (2.0-7.7); Basophil# 0.05 X10^3/uL; Basophil% 0.5 % (0-1); Eosinophil# 0.13 X10^3/uL; Eosinophils% 1.3 % (0-5); Hematocrit 52.2 % (40-54); Hemoglobin 16.8 g/dL (13.0-16.5); Lymphocyte # 2.73 X10^3/ul (0.83-4.51); Lymphocyte % 27.7 % (19-41); Mean Corp Hgb Conc 32.2 g/dL (32-36); Mean Corpuscular Hgb 30.5 pg (27.0-32.0); Mean Corpuscular Volume 94.9 fL (80-94); Mean Platelet Vol. 10.1 fl (6.2-12.0); Monocyte% 13.2 % (0-10); NRBC Flagged by Analyzer 0 % (0-5); Neutrophil # 5.56 X10^3/uL (2.7-7.7); Neutrophil % 56.3 % (47-70); Platelet Count 211 K/mm3 (150-450); RBC Distribution Width CV 13.2 % (11.6-14.6); RBC Distribution Width SD 46.5 fl (35.1-43.9); White Blood Count 9.9 K/mm3 (4.4-11.0)
[2021-04-21 12:22] LABS: Vitamin B12 397 pg/mL (211-911)
[2021-04-21 12:23] LABS: Color, Urine Yellow (Yellow); Glucose, Dipstick Normal (Normal); Ketone-Dipstick Negative (Negative); Leukocyte Esterase-Dipstick Negative /ul (Negative); Nitrite-Dipstick Negative (Negative); Occult Blood-Urine 10 /ul (Negative); Protein-Dipstick Negative (Negative); Urine Bilirubin Dipstick Negative (Negative); Urine Clarity Clear (Clear); Urine Urobilinogen Normal (Normal)
[2021-04-21 13:35] LABS: ALB/GLOB Ratio 0.9 RATIO (0.9-2.4); AST(SGOT) 12 U/L (15-37); Alanine Aminotransfer ALT/SGPT 36 U/L (16-61); Albumin, Serum 3.4 g/dL (3.2-5.0); Alkaline Phosphatase 52 U/L (45-117); Anion Gap 6 (5-15); BUN 19 mg/dL (7-18); Calcium,Total 9.8 mg/dL (8.5-10.1); Chloride 104 mmol/L (98-107); Cholesterol 161 mg/dL (200); Creatinine, Serum 1.27 mg/dL (0.70-1.30); EST Glomerular Filtration Rate 60 mL/min (>60); Est Glom Filt Rate - Afr Amer 72 mL/min (>60); Folates, (Folic Acid) > 100.00 ng/mL (3.1-55.4); Globulin 3.7 g/dL (2.2-4.2); Glucose 79 mg/dL (74-106); High Density Lipoprotein 57 mg/dL; Potassium 3.8 mmol/L (3.5-5.1); Protein, Total 7.1 g/dL (6.4-8.2); Sodium Level 142 mmol/L (136-145); Thyroid Stim Hormone (TSH) 1.59 uIU/mL (0.358-3.74); Triglycerides 137 mg/dL; Very Low Density Lipoprotein 27 mg/dL (5-40)
[2021-04-29 09:32] LABS: Vitamin B1, Thiamine 151.2 nmol/L (66.5-200.0)
== END ==
PROVIDERS: PCP Family Medicine; Visit Provider Family Medicine
DX: I10 Essential (primary) hypertension (principal); E53.8 Deficiency of other specified B group vitamins
CPT/HCPCS: 36415; 80053; 80061; 81002; 82607; 82746; 84425; 84443; 85025

== ENCOUNTER → 2022-04-03 | Outpatient (CLI) | payer MEDICARE, OTHER, SELFPAY ==
--- NOTE | 2022-04-03 09:25 | RAD_ITS ---
STUDY: X-RAY - RIGHT KNEE REASON FOR EXAM: Male, 71 years old. Right knee pain TECHNIQUE: 3 view(s) of the knee. COMPARISON: None. FINDINGS: Normal visualized distal femur. Normal visualized proximal tibia and fibula. Normal proximal tibiofibular articulation. There is no demonstrated fracture. There is mild degenerative arthrosis of the medial femorotibial compartment. Normal lateral femorotibial compartment. There is mild degenerative arthrosis of the patellofemoral articulation. The soft tissue structures are unremarkable. RAD/Knee 3 Views IMPRESSION: Degenerative arthrosis. Electronically Signed: Lalo Alonso MD at 12:02 EST ,
[2022-04-03 12:42] LABS: Absolute Lymphocyte Count 1.48 X10^3/uL (0.83-4.51); Absolute Neutrophil Count 3.4 X10^3/uL (2.0-7.7); Basophil# 0.04 X10^3/uL; Basophil% 0.7 % (0-1); Eosinophil# 0.21 X10^3/uL; Eosinophils% 3.5 % (0-5); Hemoglobin 17.9 g/dL (13.0-16.5); Lymphocyte # 1.48 X10^3/ul (0.83-4.51); Lymphocyte % 24.6 % (19-41); Mean Corp Hgb Conc 32.1 g/dL (32-36); Mean Corpuscular Hgb 31.1 pg (27.0-32.0); Mean Corpuscular Volume 96.9 fL (80-94); Mean Platelet Vol. 10.5 fl (6.2-12.0); Monocyte# 0.84 X10^3/uL; NRBC Flagged by Analyzer 0.3 % (0-5); Neutrophil # 3.41 X10^3/uL (2.7-7.7); Neutrophil % 56.7 % (47-70); Platelet Count 230 K/mm3 (150-450); RBC Distribution Width CV 12.9 % (11.6-14.6); RBC Distribution Width SD 45.9 fl (35.1-43.9); Red Blood Count 5.76 M/mm3 (4.6-6.2)
[2022-04-03 12:48] LABS: Vitamin B12 440 pg/mL (211-911); Vitamin D,25 Hydroxy 23.2 ng/mL
[2022-04-03 12:56] LABS: Hematocrit 55.8 % (40-54)
[2022-04-03 13:15] LABS: AST(SGOT) 19 U/L (15-37); Alanine Aminotransfer ALT/SGPT 40 U/L (16-61); Alkaline Phosphatase 65 U/L (45-117); Anion Gap 3 (5-15); BUN 16 mg/dL (7-18); BUN/Creat Ratio 13.2 RATIO (10-20); Calcium,Total 10.2 mg/dL (8.5-10.1); Chloride 102 mmol/L (98-107); Cholesterol 196 mg/dL (200); Creatinine, Serum 1.21 mg/dL (0.70-1.30); EST Glomerular Filtration Rate 63 mL/min (>60); Est Glom Filt Rate - Afr Amer 76 mL/min (>60); Glucose 76 mg/dL (74-106); High Density Lipoprotein 41 mg/dL; Potassium 3.8 mmol/L (3.5-5.1); Sodium Level 139 mmol/L (136-145); Thyroid Stim Hormone (TSH) 2.18 uIU/mL (0.358-3.74); Triglycerides 249 mg/dL; Very Low Density Lipoprotein 50 mg/dL (5-40)
[2022-04-06 14:41] LABS: Ferritin 142 ng/mL (26-388); Iron 159 ug/dL (65-175); Iron Binding Capacity,Total 326 ug/dL (250-450); PERCENT IRON SATURATION 48.8 % (15.0-55.0)
[2022-04-07 11:33] LABS: CCP IgG Antibodies 6 units (0-19)
== END | disposition home or self-care (01) ==
LOC: MTLAB 09:20
PROVIDERS: PCP Family Medicine; Referring Provider Family Medicine; Visit Provider Family Medicine
DX: I10 Essential (primary) hypertension (principal); M23.8X9 Other internal derangements of unspecified knee; E53.8 Deficiency of other specified B group vitamins; D75.1 Secondary polycythemia; Z86.39 Personal history of other endocrine, nutritional and metabolic disease
CPT/HCPCS: 36415; 73562; 80053; 80061; 82306; 82607; 82728; 82746; 83540; 83550; 84443; 84466; 85025; 86200

== ENCOUNTER → 2022-09-10 | Outpatient (CLI) | payer MEDICARE, OTHER, SELFPAY ==
--- NOTE | 2022-09-10 12:41 | MRI_ITS ---
STUDY: MRI BRAIN WITH AND WITHOUT CONTRAST (ATTENTION INTERNAL AUDITORY CANALS - I.A.C.''s) REASON FOR EXAM: Male, 71 years old. ASYMETRICAL [place] LOSS TECHNIQUE: Standardized multiplanar fat and water weighted pulse sequences were obtained. IV 20ml clariscan was administered for the contrast portion of the examination. COMPARISON: MRI of the brain August 27, 2017 FINDINGS: Normal bilateral temporal bones. Normal bilateral internal auditory canals. There is no demonstrated intracanalicular or cisternal vestibular schwannoma (acoustic neuroma). There is no enhancement of the bilateral VIIth or VIIIth cranial nerves. Normal bilateral cochlea, vestibules and semicircular canals. Normal size of the ventricles and extra-axial spaces for the patient''s age. Moderate nonspecific periventricular white matter disease most likely small vessel ischemic changes in patient of this age without mass effect or restricted. Normal bilateral basal ganglia. Normal thalami. Normal flow voids within the major intracranial circulation suggesting patency by spin echo criteria. Normal venous enhancement. There is no enhancing intra-axial or extra-axial abnormality. There is no extra-axial fluid accumulation. Normal sella turcica, pituitary gland, infundibular stalk, optic chiasm and hypothalamus. Normal tectal plate and pineal gland. Increased signal intensity within the mastoid air cells bilaterally which may be inflammatory in nature which is new finding since prior study. Normal midbrain, mikey and medulla. Normal cerebellum. Normal basal cisterns. No demonstrated orbital abnormality, within the constraints of a routine brain study. Normal visualized paranasal sinuses. Normal calvarium and skull base. Normal visualized soft tissue structures. Normal visualized upper cervical spine. MRI/Brain W/WO Contrast IMPRESSION: Moderate periventricular white matter ischemic changes without evidence for acute infarct. No enhancing lesions following contrast administration. Specifically no evidence for acoustic or vestibular schwannoma. 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 Clinical correlation recommended Electronically Signed: Indio Roberts MD at 18:03 EDT ,
[2022-09-10 13:05] LABS: CREATININE FINGERSTICK 1.1 mg/dL (0.70-1.30); EGFR FINGERSTICK > 60.0000 mL/min (>60)
== END | disposition home or self-care (01) ==
LOC: MRI 12:30
PROVIDERS: PCP Family Medicine; Referring Provider Otolaryngology; Visit Provider Otolaryngology
DX: H90.3 Sensorineural hearing loss, bilateral (principal)
CPT/HCPCS: 70553; A9575

== ENCOUNTER → 2022-10-06 | Outpatient (CLI) | payer MEDICARE, OTHER, SELFPAY ==
[2022-10-06 09:42] LABS: Bacteria 0 SEEN /hpf (None Seen); Mucous, Urine 0 SEEN /hpf (<or=2+); Red Blood Cells-Urine 0 SEEN /hpf (0-5); Squamous Epithelial Cells - UA 0 SEEN /hpf (0-5); White Blood Cells 0 SEEN /hpf (0-5)
[2022-10-06 12:23] LABS: Color, Urine Yellow (Yellow); Glucose, Dipstick Normal (Normal); Ketone-Dipstick Negative (Negative); Leukocyte Esterase-Dipstick Negative /ul (Negative); Nitrite-Dipstick Negative (Negative); Occult Blood-Urine Negative /ul (Negative); Protein-Dipstick Negative (Negative); Urine Bilirubin Dipstick Negative (Negative); Urine Clarity Clear (Clear); Urine Urobilinogen Normal (Normal)
[2022-10-06 12:35] LABS: Absolute Lymphocyte Count 1.23 X10^3/uL (0.83-4.51); Absolute Neutrophil Count 2.9 X10^3/uL (2.0-7.7); Basophil# 0.03 X10^3/uL; Basophil% 0.6 % (0-1); Eosinophil# 0.34 X10^3/uL; Eosinophils% 6.5 % (0-5); Hematocrit 51.8 % (40-54); Lymphocyte # 1.23 X10^3/ul (0.83-4.51); Lymphocyte % 23.5 % (19-41); Mean Corp Hgb Conc 32.8 g/dL (32-36); Mean Corpuscular Hgb 31.5 pg (27.0-32.0); Mean Corpuscular Volume 96.1 fL (80-94); Mean Platelet Vol. 10.8 fl (6.2-12.0); Monocyte# 0.68 X10^3/uL; NRBC Flagged by Analyzer 0 % (0-5); Neutrophil # 2.94 X10^3/uL (2.7-7.7); Neutrophil % 56.2 % (47-70); Platelet Count 152 K/mm3 (150-450); RBC Distribution Width CV 12.6 % (11.6-14.6); RBC Distribution Width SD 44.9 fl (35.1-43.9); Red Blood Count 5.39 M/mm3 (4.6-6.2); White Blood Count 5.2 K/mm3 (4.4-11.0)
[2022-10-06 13:19] LABS: Vitamin B12 373 pg/mL (211-911); Vitamin D,25 Hydroxy 60.6 ng/mL
[2022-10-06 14:11] LABS: ALB/GLOB Ratio 1.1 RATIO (0.9-2.4); AST(SGOT) 27 U/L (15-37); Alanine Aminotransfer ALT/SGPT 35 U/L (16-61); Albumin, Serum 3.6 g/dL (3.2-5.0); Alkaline Phosphatase 60 U/L (45-117); Anion Gap 8 (5-15); BUN 25 mg/dL (7-18); BUN/Creat Ratio 19.8 RATIO (10-20); Calcium,Total 9.2 mg/dL (8.5-10.1); Chloride 106 mmol/L (98-107); Cholesterol 143 mg/dL (200); Creatinine, Serum 1.26 mg/dL (0.70-1.30); EST Glomerular Filtration Rate 60 mL/min (>60); Est Glom Filt Rate - Afr Amer 73 mL/min (>60); Globulin 3.4 g/dL (2.2-4.2); Glucose 72 mg/dL (74-106); High Density Lipoprotein 35 mg/dL; Potassium 4.3 mmol/L (3.5-5.1); Sodium Level 137 mmol/L (136-145); Thyroid Stim Hormone (TSH) 2.29 uIU/mL (0.358-3.74); Triglycerides 123 mg/dL; Very Low Density Lipoprotein 25 mg/dL (5-40)
== END | disposition home or self-care (01) ==
LOC: MFPLAB 09:37
PROVIDERS: PCP Family Medicine; Visit Provider Family Medicine
DX: I10 Essential (primary) hypertension (principal); E53.1 Pyridoxine deficiency; E55.9 Vitamin D deficiency, unspecified
CPT/HCPCS: 36415; 80053; 80061; 81001; 82306; 82607; 82746; 84207; 84443; 85025

== ENCOUNTER → 2022-10-22 | Outpatient (CLI) | payer MEDICARE, OTHER, SELFPAY ==
--- NOTE | 2022-10-22 09:10 | RAD_ITS ---
STUDY: X-RAY - ACUTE ABDOMINAL SERIES REASON FOR EXAM: Male, 71 years old. Right flank pain and constipation TECHNIQUE: Single view of the chest. Supine, erect view(s) of the abdomen were obtained. 6 total views obtained COMPARISON: None. FINDINGS: The lungs are clear and expanded. Normal size heart. Normal mediastinum and michelle. Normal visualized pulmonary arteries. Normal visualized aortic arch and descending thoracic aorta. There is a non-specific bowel gas pattern. The soft tissue structures of the abdomen and pelvis are unremarkable. There are calcifications overlying both renal shadows, and 2 separate calcifications projecting near right transverse process at L3 which could be within the right ureter Normal visualized osseous structures. RAD/Acute Abdomen Inc Chest IMPRESSION: No acute pulmonary, abdominal, or pelvic process Likely bilateral nephrolithiasis Likely right ureteral lithiasis Electronically Signed: Ashvin Garcias MD at 11:40 EDT ,
[2022-10-22 10:24] LABS: Absolute Lymphocyte Count 1.29 X10^3/uL (0.83-4.51); Absolute Neutrophil Count 3.4 X10^3/uL (2.0-7.7); Basophil# 0.04 X10^3/uL; Basophil% 0.7 % (0-1); Eosinophil# 0.33 X10^3/uL; Eosinophils% 5.6 % (0-5); Hematocrit 54.2 % (40-54); Hemoglobin 17.3 g/dL (13.0-16.5); Lymphocyte # 1.29 X10^3/ul (0.83-4.51); Mean Corp Hgb Conc 31.9 g/dL (32-36); Mean Corpuscular Hgb 30.8 pg (27.0-32.0); Mean Corpuscular Volume 96.4 fL (80-94); Mean Platelet Vol. 9.5 fl (6.2-12.0); Monocyte# 0.82 X10^3/uL; NRBC Flagged by Analyzer 0 % (0-5); Neutrophil # 3.36 X10^3/uL (2.7-7.7); Neutrophil % 57.2 % (47-70); Platelet Count 306 K/mm3 (150-450); RBC Distribution Width CV 12.4 % (11.6-14.6); RBC Distribution Width SD 44.6 fl (35.1-43.9); Red Blood Count 5.62 M/mm3 (4.6-6.2); White Blood Count 5.9 K/mm3 (4.4-11.0)
[2022-10-22 11:23] LABS: ALB/GLOB Ratio 0.8 RATIO (0.9-2.4); AST(SGOT) 16 U/L (15-37); Alanine Aminotransfer ALT/SGPT 24 U/L (16-61); Albumin, Serum 3.6 g/dL (3.2-5.0); Alkaline Phosphatase 68 U/L (45-117); Anion Gap 6 (5-15); BUN 24 mg/dL (7-18); BUN/Creat Ratio 16.2 RATIO (10-20); Calcium,Total 10.4 mg/dL (8.5-10.1); Chloride 102 mmol/L (98-107); Creatinine, Serum 1.48 mg/dL (0.70-1.30); EST Glomerular Filtration Rate 50 mL/min (>60); Est Glom Filt Rate - Afr Amer 60 mL/min (>60); Globulin 4.3 g/dL (2.2-4.2); Glucose 86 mg/dL (74-106); Potassium 4.1 mmol/L (3.5-5.1); Protein, Total 7.9 g/dL (6.4-8.2); Sodium Level 137 mmol/L (136-145)
== END | disposition home or self-care (01) ==
LOC: MTLAB 09:03
PROVIDERS: PCP Family Medicine; Referring Provider Family Medicine; Visit Provider Family Medicine
DX: K59.00 Constipation, unspecified (principal)
CPT/HCPCS: 36415; 74022; 80053; 85025

== ENCOUNTER → 2022-11-16 | Outpatient (CLI) | payer MEDICARE, OTHER, SELFPAY ==
--- NOTE | 2022-11-16 09:18 | CT_ITS ---
STUDY: CT ABDOMEN AND PELVIS WITHOUT CONTRAST REASON FOR EXAM: Male, 72 years old. Flank pain RADIATION DOSAGE (If Supplied By Facility): CTDIvol = ( 11.37 ) mGy, DLP = ( 602.31 ) mGycm TECHNIQUE: Transaxial images were obtained from the dome of the diaphragm to the symphysis pubis without oral contrast, and without intravenous contrast. Sagittal and coronal images were reconstructed. Individualized dose optimization techniques were used for this CT. COMPARISON: None. FINDINGS: The visualized lung bases are unremarkable. The visualized portions of the heart are within normal limits. Normal liver. Normal gallbladder and extrahepatic biliary system. Normal spleen. Normal pancreas. Normal bilateral adrenal glands. There is right-sided hydronephrosis and hydroureter. There are multiple, at least 3 separate calcifications within the mid right ureter best seen on coronal recon images 80 through 83 with the largest measuring 7.2 mm. There are bilateral punctate nonobstructing renal stones and bilateral renal cysts including a hyperdense cyst in left kidney and a partially calcified cyst in the right kidney. No specific follow-up is needed. Normal visualized stomach. Normal small intestine. Retained stool throughout the colon. There is non-visualization of the appendix. Normal abdominal aorta. Normal inferior vena cava. Normal retroperitoneum. Normal urinary bladder. Normal abdominal wall. There are diffuse degenerative changes of the visualized lumbar spine, and pelvis. CT/Abdomen/Pelvis without Cont IMPRESSION: Right-sided hydronephrosis and hydroureter. Findings due to at least 3 stones noted within the mid right ureter. Largest of these measures 7.2 mm. Urologic consultation recommended Punctate nonobstructing bilateral renal stones Bilateral renal cysts, no specific follow-up needed Retained stool throughout the colon Degenerative bony changes Electronically Signed: Ashvin Garcias MD at 10:20 EDT ,
== END | disposition home or self-care (01) ==
LOC: CT 09:17
PROVIDERS: PCP Family Medicine; Referring Provider Urology; Visit Provider Urology
DX: N20.0 Calculus of kidney (principal)
CPT/HCPCS: 74176

== ENCOUNTER → 2023-02-05 | Outpatient (CLI) | payer MEDICARE, OTHER, SELFPAY ==
[2023-02-05 10:52] LABS: PSA,Total - Annual Screen 2.76 ng/mL (0.00-4.00)
== END | disposition home or self-care (01) ==
LOC: MFPLAB 09:29
PROVIDERS: PCP Family Medicine; Visit Provider Family Medicine
DX: Z12.5 Encounter for screening for malignant neoplasm of prostate (principal)
CPT/HCPCS: 36415; 84153; G0103

== ENCOUNTER → 2023-08-06 | Outpatient (CLI) | payer MEDICARE, OTHER, SELFPAY ==
[2023-08-06 08:58] LABS: Bacteria 0 SEEN /hpf (None Seen); Mucous, Urine 0 SEEN /hpf (<or=2+); White Blood Cells 0 SEEN /hpf (0-5)
[2023-08-06 10:16] LABS: Absolute Lymphocyte Count 1.24 X10^3/uL (0.83-4.51); Absolute Neutrophil Count 2.9 X10^3/uL (2.0-7.7); Basophil# 0.04 X10^3/uL; Basophil% 0.8 % (0-1); Hematocrit 53.9 % (40-54); Hemoglobin 17.7 g/dL (13.0-16.5); Lymphocyte # 1.24 X10^3/ul (0.83-4.51); Lymphocyte % 24.5 % (19-41); Mean Corp Hgb Conc 32.8 g/dL (32-36); Mean Corpuscular Hgb 30.6 pg (27.0-32.0); Mean Corpuscular Volume 93.3 fL (80-94); Mean Platelet Vol. 10.5 fl (6.2-12.0); Monocyte# 0.71 X10^3/uL; NRBC Flagged by Analyzer 0 % (0-5); Neutrophil # 2.86 X10^3/uL (2.7-7.7); Neutrophil % 56.5 % (47-70); Platelet Count 182 K/mm3 (150-450); RBC Distribution Width CV 12.8 % (11.6-14.6); RBC Distribution Width SD 43.6 fl (35.1-43.9); Red Blood Count 5.78 M/mm3 (4.6-6.2); White Blood Count 5.1 K/mm3 (4.4-11.0)
[2023-08-06 10:23] LABS: Color, Urine Yellow (Yellow); Glucose, Dipstick Normal (Normal); Ketone-Dipstick Negative (Negative); Leukocyte Esterase-Dipstick 25 /ul (Negative); Nitrite-Dipstick Negative (Negative); Occult Blood-Urine 50 /ul (Negative); Protein-Dipstick 15 mg/dl (Negative); Specific Gravity, Urine 1.015 (1.002-1.030); Urine Bilirubin Dipstick Negative (Negative); Urine Clarity Sl. Cloudy (Clear); Urine Urobilinogen Normal (Normal)
[2023-08-06 10:42] LABS: AST(SGOT) 20 U/L (15-37); Alanine Aminotransfer ALT/SGPT 30 U/L (16-61); Albumin, Serum 3.7 g/dL (3.2-5.0); Alkaline Phosphatase 61 U/L (45-117); Anion Gap 4 (5-15); BUN 16 mg/dL (7-18); BUN/Creat Ratio 12.3 RATIO (10-20); Calcium,Total 9.3 mg/dL (8.5-10.1); Chloride 106 mmol/L (98-107); Cholesterol 175 mg/dL (200); EST Glomerular Filtration Rate 58 mL/min (>60); Est Glom Filt Rate - Afr Amer 70 mL/min (>60); Globulin 3.6 g/dL (2.2-4.2); Glucose 88 mg/dL (74-106); High Density Lipoprotein 35 mg/dL; Phosphorus 2.3 mg/dL (2.5-4.9); Protein, Total 7.3 g/dL (6.4-8.2); Sodium Level 141 mmol/L (136-145); Thyroid Stim Hormone (TSH) 2.05 uIU/mL (0.358-3.74); Triglycerides 155 mg/dL; Very Low Density Lipoprotein 31 mg/dL (5-40)
[2023-08-06 10:50] LABS: Red Blood Cells-Urine 0-5 SEEN /hpf (0-5); Squamous Epithelial Cells - UA 0-5 SEEN /hpf (0-5)
[2023-08-06 10:50] LABS: Vitamin B12 363 pg/mL (211-911); Vitamin D,25 Hydroxy 41.5 ng/mL
[2023-08-11 13:08] LABS: Vitamin B1, Thiamine 120.7 nmol/L (66.5-200.0)
== END | disposition home or self-care (01) ==
LOC: MFPLAB 08:57
PROVIDERS: PCP Family Medicine; Visit Provider Family Medicine
DX: I10 Essential (primary) hypertension (principal); E55.9 Vitamin D deficiency, unspecified; E53.1 Pyridoxine deficiency
CPT/HCPCS: 36415; 80053; 80061; 81001; 82306; 82607; 84100; 84425; 84443; 85025

== ENCOUNTER → 2023-08-24 | Outpatient (CLI) | payer MEDICARE, OTHER, SELFPAY ==
[2023-08-24 19:36] LABS: Ferritin 60 ng/mL (26-388); Iron 90 ug/dL (65-175); Iron Binding Capacity,Total 278 ug/dL (250-450); PERCENT IRON SATURATION 32.4 % (15.0-55.0)
[2023-08-26 06:09] LABS: Transferrin 211 mg/dL (177-329)
== END | disposition home or self-care (01) ==
LOC: MFPLAB 14:08
PROVIDERS: PCP Family Medicine; Visit Provider Family Medicine
DX: D75.1 Secondary polycythemia (principal)
CPT/HCPCS: 36415; 82728; 83540; 83550; 84466

== ENCOUNTER 2024-01-10 15:04 | Day surgery (SDC) | payer MEDICARE, OTHER, SELFPAY ==
[2024-01-10] VITALS (10 sets, daily range): BP systolic 87–153; BP diastolic 49–75; PULSE 55–81; RESP 16–18; TEMP 36.2–37.1; O2SAT 93–98; BMI 29.5
--- NOTE | 2024-01-10 15:35 | EDS_ITS ---
HPI History of Present Illness Chief Complaint: Other, Pain/Inj Informant: patient and spouse/S.O. Narrative Narrative: Sent from PCPs office for concerning for infection. Around noon yesterday on the lunch, he was eating pulled pork felt something get stuck. He had an active to previous prior level of chicken with no issues. He was the bathroom threw up a couple times. She tried intake this morning last that he tried at noon with water it would come right back up. Feels something stuck in his upper chest. He had issues 2 years ago and then 8 months ago that was self-limiting. No history of endoscopies in the past. He does not take any blood thinners. History of hypertension. Prior similar symptoms: Yes [facility] Medical History (Updated 01/10/24 @ 15:47 by Background Daemon) HTN (hypertension) Home Medications ?Medication ?Instructions ?Recorded ?Last Taken ?Type aspirin 81 mg chewable tablet 81 mg PO DAILY@0800 Blood thinner 08/27/17 11/12/18 History diltiazem HCl 240 mg 240 mg PO DAILY B/P 11/12/18 01/10/24 History capsule,extended release 24 hr folic acid 800 mcg tablet 0.8 mg PO DAILY blood health 11/12/18 11/12/18 History lisinopril 10 mg tablet 10 mg PO DAILY B/P 11/12/18 01/10/24 History pyridoxine (vitamin B6) 50 mg 100 mg PO DAILY Blood health 11/12/18 11/12/18 History tablet vitamin E 268 mg (400 unit) capsule 400 unit PO DAILY blood health 11/12/18 01/10/24 History Loratadine 10 mg PO DAILY allergies 05/17/20 Unknown History acidophilus 25 million 1 tab PO TID 05/19/20 Unknown Rx cell-pectin, citrus 100 mg tablet mupirocin 2 % topical ointment 1 applic topical BID #1 tube 05/19/20 Unknown Rx clindamycin phosphate 1 % lotion 1 applic topical QHS 12/21/20 Unknown History doxycycline monohydrate 100 mg 100 mg PO BID 12/21/20 Unknown History capsule metronidazole 0.75 % topical gel 1 applic topical DAILY 12/21/20 Unknown History omeprazole 40 mg capsule,delayed 40 mg PO BID #60 caps 01/10/24 Unknown Rx release Allergy/AdvReac Type Severity Reaction Status Date / Time Penicillins Allergy from Verified 01/10/24 16:03 childhood Sulfa (Sulfonamide Allergy Rash Verified 01/10/24 16:03 Antibiotics) Surgical History (Updated 01/10/24 @ 16:[address] Zeeshan Sun MD) Status post laser lithotripsy of ureteral calculus Social History Smoking Status: Never smoker substance use type: does not use ROS ROS ED Constitutional Constitutional ED: Denies chills, fever(s) or sweats Eyes Eyes: Denies change in vision ENT ENT ED: Reports dysphagia; Denies sore throat Cardiovascular Cardiovascular: Denies chest pain, leg edema, palpitations or racing heartbeat Respiratory/Chest Respiratory/Chest: Denies cough, dyspnea or dyspnea on exertion Gastrointestinal Gastrointestinal: Denies abdominal pain, diarrhea, nausea or vomiting Genitourinary Genitourinary ED: Denies dysuria, hematuria or urinary frequency Musculoskeletal Musculoskeletal: Denies back pain, extremity pain or neck pain Integumentary Denies rash or wounds Neurologic Neurologic: Denies headache(s), paresthesias or weakness EXAM Physical Exam Const Vital Signs: 01/10/24 15:07 01/10/24 15:49 01/10/24 16:22 Temperature 97.7 F L 97.8 F 97.8 F Temperature Source Temporal Pulse Rate 62 81 81 Respiratory Rate 18 16 16 Respiratory Pattern Blood Pressure 153/75 H 133/62 H 133/62 H Blood Pressure Mean 101 85 Blood Pressure Source Blood Pressure Position Blood Pressure Location Baseline BP Pulse Ox 94 98 98 Oxygen Delivery Method Room Air Room Air Oxygen Flow Rate (L/min) 01/10/24 17:22 01/10/24 17:25 01/10/24 17:27 Temperature 97.1 F L 97.5 F L Temperature Source Temporal Pulse Rate 75 68 77 Respiratory Rate 16 16 18 Respiratory Pattern Normal Blood Pressure 87/60 L 105/57 L 87/60 L Blood Pressure Mean 69 73 Blood Pressure Source Monitor Monitor Blood Pressure Position Semi-Fowlers Semi-Fowlers Blood Pressure Location Left Forearm Left Arm Baseline BP 133/62 133/62 Pulse Ox 93 94 95 Oxygen Delivery Method Nasal Cannula Room Air Room Air Oxygen Flow Rate (L/min) 4 01/10/24 17:30 01/10/24 17:35 01/10/24 17:40 Temperature Temperature Source Pulse Rate 60 61 56 L Respiratory Rate 16 16 16 Respiratory Pattern Blood Pressure 104/57 L 102/57 L 111/49 L Blood Pressure Mean 72 72 69 Blood Pressure Source Monitor Monitor Monitor Blood Pressure Position Semi-Fowlers Semi-Fowlers Semi-Fowlers Blood Pressure Location Left Arm Left Arm Left Arm Baseline BP 133/62 133/62 133/62 Pulse Ox 97 97 97 Oxygen Delivery Method Room Air Nasal Cannula Nasal Cannula Oxygen Flow Rate (L/min) 3 2 01/10/24 17:45 01/10/24 17:59 Temperature 98.7 F Temperature Source Temporal Pulse Rate 55 L Respiratory Rate 16 Respiratory Pattern Normal Blood Pressure 106/51 L Blood Pressure Mean 69 Blood Pressure Source Monitor Blood Pressure Position Semi-Fowlers Blood Pressure Location Left Arm Baseline BP 133/62 Pulse Ox 95 Oxygen Delivery Method Room Air Oxygen Flow Rate (L/min) Positive well nourished and well developed General Appearance ED: well developed and NAD HEENT Reports moist mucous membranes HEENT Narrative: Airway patent normocephalic and atraumatic Eyes EOMs intact bilaterally and conjunctivae normal General Eye ED: Yes normal appearance of both eyes Neck no lymphadenopathy and supple General: Negative for tenderness Chest Wall Chest: Negative for tenderness Resp normal respiratory effort and normal air movement Effort and Inspection: symmetric chest movement; Negative for respiratory distress Cardio regular rate, regular rhythm and no murmurs Peripheral Pulses: pulses 2+ throughout GI normal to inspection, nondistended, normoactive bowel sounds and non-tender Palpation: Negative for guarding or rebound tenderness present Back/Spine no CVA tenderness and no thoracic nor lumbar tenderness Extremity normal to inspection General Extremety ED: Negative for edema or tenderness General Extremity: Negative for edema Neuro oriented x3 and no sensory deficits noted Sensorium / Orientation: awake and alert Skin no rashes or lesions noted and no wounds MDM MDM MDM Narrative Medical decision making narrative: Interventions / MDM: Differential diagnosis: Esophageal food impaction Diagnosis considered but do not suspect: No airway compromise My EKG interpretation: N/A Imaging independently reviewed and interpreted by myself: N/A External documents reviewed: N/A Test considered but not ordered:N/A ED course: Vital stable no distress. Patient history concerns for esophageal food impaction likely from pulled pork. He has failed oral intake multiple times at home last time was at noon. IVs established fluids started. I discussed with GI Dr. Carrillo, plan will be to take him to the endoscopy suite for intervention. Patient and spouse is updated. Re-evaluation: stable Disposition discussed with patient/family/significant other: Patient and spouse Case discussed with consulting clinician: Gastroenterology This note was generated with [email or web address] dictation software. It may contain incorrect words, spelling, and punctuation that were not noted in checking the note before signing. Discharge Plan Triage Chief Complaint: Other, Pain/Inj ED Provider: Virgil Albrecht Dx/Rx/DC Orders Clinical Impression: Food impaction of esophagus, Dysphagia, History of hypertension Primary Care Provider: Yony Branch
[2024-01-10] MEDS: 0.9% Normal Saline (1000mL) 1,000 ML 100 ML IV (15:44)
[2024-01-10] MEDS: 0.9% Normal Saline (1000mL) 1,000 ML 15 ML IV (16:05)
--- NOTE | 2024-01-10 16:14 | PRE.ANES_ITS ---
ASA Classification* ASA Classification ASA Classification: 2 Assessment & Plan Anesthesia* Anesthesia Assessment Anesthesia Assessment: Discussed sedation and/or anesthesia options, risks, benefits, and alternatives with patient/parents/legal guardian/POA. Questions invited. The patient/parents/legal guardian/POA seems to understand and agrees to proceed with anesthesia plan. Reviewed the physical assessment, medical history, allergy history and patient home medications list prior to surgery/procedure/anesthetic and documented any changes. Performed airway and anesthesia risk assessments. Anesthesia Type Anesthesia Type: MAC History Source History Obtained from:: Patient and Chart Anesthesia Focused Assessment* Temperature: 97.8 F Pulse Rate: 81 Blood Pressure: 133/62 Respiratory Rate: 16 Pulse Ox: 98 Oxygen Delivery Method: Room Air Airway Assessment Mouth opens: >3 cm Mallampati Score: III Teeth Condition: Caps/Crowns (Patient has cap on #8. Patient has couple of crowns. All tight) Neck Range of motion (ROM): Limited ROM (Slight decrease in extension) Focused Labs Anesthesia Preop lab: CBC WBC 5.1 K/mm3 (4.4-11.0) 08/06/23 08:57 RBC 5.78 M/mm3 (4.6-6.2) 08/06/23 08:57 Hgb 17.7 g/dL (13.0-16.5) H 08/06/23 08:57 Hct 53.9 % (40-54) 08/06/23 08:57 Plt Count 182 K/mm3 (150-450) 08/06/23 08:57 CHEMISTRY Potassium 4.0 mmol/L (3.5-5.1) 08/06/23 08:57 Sodium 141 mmol/L (136-145) 08/06/23 08:57 Phosphorus 2.3 mg/dL (2.5-4.9) L 08/06/23 08:57 BUN 16 mg/dL (7-18) 08/06/23 08:57 Creatinine 1.30 mg/dL (0.70-1.30) 08/06/23 08:57 Glucose 88 mg/dL (74-106) 08/06/23 08:57 TSH 2.05 uIU/mL (0.358-3.74) 08/06/23 08:57 COAG PT 13.3 SECONDS (11.7-14.9) 10/08/19 10:30 Pre-Assessment Diagnosis/Proposed Procedure Planned Operative Procedure(s): EGD Anesthesia History 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 When Was Last Pacemaker Check QUESTION #4 FULL TEXT: You/Your Family Experience fever (hyperthermia) with Anesthesia Last Oral Intake Last Oral intake: Last Oral Intake NPO since Meds taken in AM with sips of water? Meds patient instructed to take am of surgery Any additional information?: Yes NPO since: 00:00 (Patient has piece of meat that stuck in his throat from noon yesterday.) PONV PONV - associate professor of radiology: PONV - associate professor of radiology Female HX of Motion Sickness HX of N/V After Surgery Non-Smoker Duration of Surgery greater than 60 minutes Number of Risk Factors PONV Score Height & Weight Height & Weight: Anesthesia: Height & Weight Height 6 ft 3.2 in 01/10/24 15:07 Weight: 107.683 kg 01/10/24 15:07 Body Mass Index (BMI) 29.5 01/10/24 15:07 Respiratory Assessment Respiratory Assessment - associate professor of radiology: Respiratory Tract Infection Hx - associate professor of radiology Hx Respiratory Tract Infection Any additional information?: Yes Hx Respiratory Tract Infection: No STOP Sleep Apnea STOP Sleep Apnea - associate professor of radiology: STOP Sleep Apnea - associate professor of radiology Hx Hypertension Yes 05/17/20 23:10 Hx Sleep Apnea No 05/17/20 23:10 CPAP BIPAP Do you snore loudly (louder than talking or can be heard Do you often feel tired/ fatigued/ sleepy during daytime? Has anyone observed you stop breathing during sleep? STOP Results QUESTION #5 FULL TEXT : Do you snore loudly (louder than talking or can be heard through closed doors)? 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 Specify any problems Hx of Preganancy in last 3 Months Nurse Filling Out Transfusion & Questions: Date: Time: Patient unable to answer at this time (ie. confused, unrespo /Reproduction History /Reproductive History - associate professor of radiology: /Reproductive Hx- associate professor of radiology Hx Now Gestational Age (in weeks): EDC: Hx Hx Para Hx Section SAB PFSH Medical History (Updated 01/10/24 @ 15:47 by Background Dajunior) HTN (hypertension) Home Medications ?Medication ?Instructions ?Recorded ?Last Taken ?Type aspirin 81 mg chewable tablet 81 mg PO DAILY@0800 Blood thinner 08/27/17 11/12/18 History diltiazem HCl 240 mg 240 mg PO DAILY B/P 11/12/18 01/10/24 History capsule,extended release 24 hr folic acid 800 mcg tablet 0.8 mg PO DAILY blood health 11/12/18 11/12/18 History lisinopril 10 mg tablet 10 mg PO DAILY B/P 11/12/18 01/10/24 History pyridoxine (vitamin B6) 50 mg 100 mg PO DAILY Blood health 11/12/18 11/12/18 History tablet vitamin E 268 mg (400 unit) capsule 400 unit PO DAILY blood health 11/12/18 01/10/24 History Loratadine 10 mg PO DAILY allergies 05/17/20 Unknown History acidophilus 25 million 1 tab PO TID 05/19/20 Unknown Rx cell-pectin, citrus 100 mg tablet mupirocin 2 % topical ointment 1 applic topical BID #1 tube 05/19/20 Unknown Rx clindamycin phosphate 1 % lotion 1 applic topical QHS 12/21/20 Unknown History doxycycline monohydrate 100 mg 100 mg PO BID 12/21/20 Unknown History capsule metronidazole 0.75 % topical gel 1 applic topical DAILY 12/21/20 Unknown History Allergy/AdvReac Type Severity Reaction Status Date / Time Penicillins Allergy from Verified 01/10/24 16:03 childhood Sulfa (Sulfonamide Allergy Rash Verified 01/10/24 16:03 Antibiotics) Surgical History (Updated 01/10/24 @ 16:[address] Zeeshan Sun MD) Status post laser lithotripsy of ureteral calculus Social History Smoking Status: Never smoker substance use type: does not use Review of Systems (Anesthesia) ROS Narrative System reviewed and no additional complaints, except as documented.
--- NOTE | 2024-01-10 16:31 | HP.PCM_ITS ---
HPI - General General Date of Admission: 01/10/24 Date of Service: 01/10/24 Chief Complaint: Foreign body HPI Narrative AAYUSH HERNANDES, is a 73 M who presents to the ED with inability to swallow. He has a history of esophageal food impactions in the past that typically pass by itself. He denies any history of reflux disease. He does not take any PPI on a daily basis. He does have past medical history of hypertension and is controlle d on medicines. He does take it 81 mg of aspirin every day. He has never had upper endoscopy. [facility] Medical History (Updated 01/10/24 @ 15:47 by Background Dajunior) HTN (hypertension) Home Medications ?Medication ?Instructions ?Recorded ?Last Taken ?Type aspirin 81 mg chewable tablet 81 mg PO DAILY@0800 Blood thinner 08/27/17 11/12/18 History diltiazem HCl 240 mg 240 mg PO DAILY B/P 11/12/18 01/10/24 History capsule,extended release 24 hr folic acid 800 mcg tablet 0.8 mg PO DAILY blood health 11/12/18 11/12/18 History lisinopril 10 mg tablet 10 mg PO DAILY B/P 11/12/18 01/10/24 History pyridoxine (vitamin B6) 50 mg 100 mg PO DAILY Blood health 11/12/18 11/12/18 History tablet vitamin E 268 mg (400 unit) capsule 400 unit PO DAILY blood health 11/12/18 01/10/24 History Loratadine 10 mg PO DAILY allergies 05/17/20 Unknown History acidophilus 25 million 1 tab PO TID 05/19/20 Unknown Rx cell-pectin, citrus 100 mg tablet mupirocin 2 % topical ointment 1 applic topical BID #1 tube 05/19/20 Unknown Rx clindamycin phosphate 1 % lotion 1 applic topical QHS 12/21/20 Unknown History doxycycline monohydrate 100 mg 100 mg PO BID 12/21/20 Unknown History capsule metronidazole 0.75 % topical gel 1 applic topical DAILY 12/21/20 Unknown History Allergy/AdvReac Type Severity Reaction Status Date / Time Penicillins Allergy from Verified 01/10/24 16:03 childhood Sulfa (Sulfonamide Allergy Rash Verified 01/10/24 16:03 Antibiotics) Surgical History (Updated 01/10/24 @ 16:[address] Zeeshan Sun MD) Status post laser lithotripsy of ureteral calculus Social History Smoking Status: Never smoker substance use type: does not use ROS Review of Systems ROS Unobtainable: other Constitutional Constitutional: Denies fatigue, fever(s), poor appetite, weight gain or weight loss ENT HEENT: Denies mouth lesions Cardiovascular Cardiovascular: Denies abdominal bloating, abdominal edema or abdominal pain Respiratory/Chest Respiratory/Chest: Denies change in mental status, change in phlegm color, chest congestion or chest tightness Gastrointestinal Gastrointestinal: Denies belching, bloating, change in bowel habits, change in stool character, chewing difficulty, coffee ground emesis, constipation, cramping, diarrhea, dyspepsia, dysphagia, early satiety, excessive flatus, fecal incontinence, heartburn, hematemesis, hematochezia, hemorrhoids, loose stools, melena, nausea, odynophagia, rectal bleeding, tenesmus, vomiting or weight changes Genitourinary Genitourinary: Denies abdominal discomfort, burning urination or itching Musculoskeletal Musculoskeletal: Reports as per HPI; Denies muscle weakness or myalgias Integumentary Integumentary: Denies jaundice Neurologic Neurologic: Denies lack of coordination or weakness Psychiatric Psychiatric: Denies confusion, depression, memory loss, mood swings, paranoia or suicidal ideation Endocrine Endocrinology: Denies systems reviewed and no addt'l complaints, except as documented Hematologic/Lymphatic Hematologic/Lymphatic: Denies anemia, easy bleeding, easy bruising or lymphadenopathy Allergic/Immunologic Allergic/Immunologic: Denies systems reviewed and no addt'l complaints, except as documented Vital Signs Vital Signs Vital Signs: 01/10/24 15:07 01/10/24 15:49 01/10/24 16:22 Temperature 97.7 F L 97.8 F 97.8 F Temperature Source Temporal Pulse Rate 62 81 81 Respiratory Rate 18 16 16 Blood Pressure 153/75 H 133/62 H 133/62 H Blood Pressure Mean 101 85 Pulse Ox 94 98 98 Oxygen Delivery Method Room Air Room Air Weight Weight: 237 lb 6.4 oz Body Mass Index (BMI) 29.5 Physical Exam Const alert General Appearance: cooperative Orientation / Consciousness: oriented to person HEENT hearing grossly normal bilaterally Head and Scalp: normal to inspection Face and Sinus: face symmetric Nose: external nose normal Mouth: oral and palatal mucosa normal Eyes conjunctivae normal General Eye: normal appearance of both eyes Neck full ROM General: normal visual inspection Lymph Lymphatic: no lymphadenopathy noted Chest inspection of chest normal and palpation of chest normal Chest: symmetrical chest wall rise Resp normal respiratory effort Effort and Inspection: able to speak in complete sentences Cardio regular rate GI non-distended Percussion: normal to percussion Rectal Exam: deferred Neuro Speech: speech normal Gait (Neuro): normal gait Assessment & Plan Assessment/Plan (1) Dysphagia: (2) Food impaction of esophagus: PLAN: Plan 73-year-old gentleman comes in with foreign body sensation x 24 hours. Typically diagnosis does include esophageal ulcer secondary to antibiotics, esophageal stricture and gastroesophageal reflux disease, eosinophilic esophagitis, neoplasia secondary to Cardenas's esophagus. He will undergo upper endoscopy. Was explained alternatives, risk, benefits include not withstanding bleeding, infection, sepsis, perforation, need emergent and . He will have an ASA of 3.
--- NOTE | 2024-01-10 17:20 | OP.CCLET_ITS ---
01/10/2024 Yony Branch [address] [place] [address] Re : Upper GI endoscopy procedure for Lloyd Turcios Dear Dr. Branch This procedure was performed on Wednesday, January 10, 2024. My impressions and recommendations are as follows: Impressions : - Esophageal ulcer with stigmata of recent bleeding. Biopsied. - Erika-Keller tear. Treatment not successful. Treated with a heater probe. Treated with argon plasma coagulation (APC). Clips were placed. 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 - Small hiatal hernia. - No gross lesions in the entire stomach. - No gross lesions in the first portion of the duodenum. Recommendations : - Discharge patient to home. - Clear liquid diet today. - Use Prilosec (omeprazole) 40 mg PO BID for 3 months. - Repeat upper endoscopy in 3 months for surveillance. - Continue present medications. - No aspirin, ibuprofen, naproxen, or other non-steroidal anti-inflammatory drugs for 12 days. My findings are described in the full procedure note, which is enclosed. If I can be of further assistance, please feel free to contact me at . Sincerely, Matthew Carrillo, 01/10/2024 5:19:38 PM This report has been signed electronically.
--- NOTE | 2024-01-10 17:20 | OP.EGD_ITS ---
Patient Name: Lloyd Turcios Procedure Date: 01/10/2024 4:34 PM Date of : 1950 Age: 73 Procedure: Upper GI endoscopy Indications: Dysphagia, Hematemesis Providers: Matthew Carrillo DO Medicines: Monitored Anesthesia Care Patient Profile: This is a 73 year old male. Refer to note in patient chart for documentation of history and physical. Patient has symptoms of acute dysphagia, dysphagia with both liquids and solids and acute vomiting. Complications: No immediate complications. Procedure: Pre-Anesthesia Assessment: - Prior to the procedure, a History and Physical was performed, and patient medications and allergies were reviewed. The patient is competent. The risks and benefits of the procedure and the sedation options and risks were discussed with the patient. All questions were answered and informed consent was obtained. Patient identification and proposed procedure were verified by the physician in the pre-procedure area. Mental Status Examination: alert and oriented. Airway Examination: normal oropharyngeal airway and neck mobility. Respiratory Examination: clear to auscultation. CV Examination: normal. Prophylactic Antibiotics: The patient does not require prophylactic antibiotics. Prior Anticoagulants: The patient has taken no anticoagulant or antiplatelet agents except for aspirin. ASA Grade Assessment: II - A patient with mild systemic disease. After reviewing the risks and benefits, the patient was deemed in satisfactory condition to undergo the procedure. The anesthesia plan was to use monitored anesthesia care (MAC). Immediately prior to administration of medications, the patient was re-assessed for adequacy to receive sedatives. The heart rate, respiratory rate, oxygen saturations, blood pressure, adequacy of pulmonary ventilation, and response to care were monitored throughout the procedure. The physical status of the patient was re-assessed after the procedure. After obtaining informed consent, the endoscope was passed under direct vision. Throughout the procedure, the patient's blood pressure, pulse, and oxygen saturations were monitored continuously. The Endoscope was introduced through the mouth, and advanced to the second part of duodenum. The upper GI endoscopy was accomplished without difficulty. The patient tolerated the procedure well. Scope In: 4:40:00 PM Scope Out: 5:11:55 PM Total Procedure Duration Time 0 hours 31 minutes 55 seconds Findings: One cratered esophageal ulcer with stigmata of recent bleeding was found 38 to 39 cm from the incisors. The lesion was 4 mm in largest dimension. Biopsies were taken with a cold forceps for histology. Verification of patient identification for the specimen was done. Estimated blood loss was minimal. A 20 mm bleeding Erika-Keller tear with stigmata of recent bleeding was found. Coagulation for hemostasis using heater probe was unsuccessful. Coagulation for hemostasis using argon plasma at 0.4 liters/minute and 20 mills was successful. To repair the defect, the tissue edges were approximated and three hemostatic clips were successfully placed. Closure of the defect was successful. 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 There was no bleeding at the end of the procedure. A small hiatal hernia was present. No gross lesions were noted in the entire examined stomach. No gross lesions were noted in the first portion of the duodenum. Impression: - Esophageal ulcer with stigmata of recent bleeding. Biopsied. - Erika-Keller tear. Treatment not successful. Treated with a heater probe. Treated with argon plasma coagulation (APC). Clips were placed. 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 - Small hiatal hernia. - No gross lesions in the entire stomach. - No gross lesions in the first portion of the duodenum. Recommendation: - Discharge patient to home. - Clear liquid diet today. - Use Prilosec (omeprazole) 40 mg PO BID for 3 months. - Repeat upper endoscopy in 3 months for surveillance. - Continue present medications. - No aspirin, ibuprofen, naproxen, or other non-steroidal anti-inflammatory drugs for 12 days. Procedure Code(s): --- Professional --- 14363, 59, Esophagogastroduodenoscopy, flexible, transoral; with control of bleeding, any method 51556, 51, Esophagogastroduodenoscopy, flexible, transoral; with biopsy, single or multiple CPT copyright 2021 [employer]. All rights reserved. The codes documented in this report are preliminary and upon telecommunications technician review may be revised to meet current compliance requirements. Matthew Carrillo DO 01/10/2024 5:19:38 PM This report has been signed electronically. Number of Addenda: 0 Note Initiated On: 01/10/2024 4:34 PM
--- NOTE | 2024-01-10 17:26 | PCM.POST.ANE ---
Anesthesia: Postop Eval I Current Vital Signs Temperature: 97.5 F Pulse Rate: 77 Blood Pressure: 87/60 Respiratory Rate: 18 Pulse Ox: 95 Oxygen Delivery Method: Room Air Assessment Airway patent: Yes Spontaneous unlabored respirations: Yes Mental status: Awake nausea: No Vomiting: No Anesthesia Complication: No Fluid Hydration Crystalloid volume administer (ml): 1,200 Total IV fluid infused: 1,200 Progress Note Anesthesia document: Postop Eval 1 completed: Yes
[2024-01-10] MEDS: Pantoprazole Sodium 80 MG in 0.9% Normal Saline (100mL MB+) 100 ML 330 MG IV (17:56)
--- NOTE | 2024-01-10 20:26 | PCM.POSTANE2 ---
Anesthesia Postop Eval I Sum Postop Eval Completion status Anesthesia document: Postop Eval 1 completed: Yes Anesthesia Postop Eval I Summary Anesthesia Postop Eval I Summary: Anesthesia Postop Eval I: Assessment Summary Airway patent Yes 01/10/24 17:27 [email or web address] Spontaneous unlabored Yes 01/10/24 17:27 [email or web address] respirations Mental status Awake 01/10/24 17:27 [email or web address] nausea No 01/10/24 17:27 [email or web address] Vomiting No 01/10/24 17:27 [email or web address] Anesthesia Postop Eval I: Fluid Summary Crystalloid volume administer 1,200 01/10/24 17:27 [email or web address] (ml) Colloids volume administered ( ml) Blood Product volume administered (ml) Total IV fluid infused 1,200 01/10/24 17:27 [email or web address] Anesthesia Postop Eval I: Summary Notes Anesthesia Complication No 01/10/24 17:27 [email or web address] Anesthesia Complication Comment: Post-operative progress note Anesthesia: Postop Eval II Evaluation Mental status: Awake Pain Level: 0 nausea: No Vomiting: No
--- NOTE | 2024-01-11 | ESO_PTH ---
PATIENT: AAYUSH HERNANDES [place] [facility] [place][id number] AGE/SX: 73/M ROOM: RE01/10/[address]: Dr. Matthew Carrillo DO : 1950 BED: DIS: 01/10/2024 SPEC #: [id number] RECD: 01/11/24 10:19 STATUS: MO RETera #: [id number] EMORY: 01/11/24 00:[address]: Matthew Carrillo DEPT: SURGICAL PATHOLOGY RECD BY: Mikal Mendiola ENTERED: 01/11/24 10:20 SP TYPE: JAME THOMAS DR: Dr. Yony Branch MD Tissues: Esophagus, NOS Procedures: Special Stain Group I Surgery Specimen Level IV Alcian Blue/PAS (control) HEADER OPERATION: EGD with biopsy, cautery, clips x3 PRE-OP DIAGNOSIS: Dysphagia, food impaction of esophagus, esophageal ulcer, Erika Keller tear TISSUE SUBMITTED: Distal esophagus biopsy MICROSCOPIC DIAGNOSIS Distal esophagus, biopsy: Gastroesophageal junction mucosa with chronic inflammation, granulation and acute and chronic inflammation consistent with ulcer. Changes of reflux. No evidence of goblet cell metaplasia. See comment. 01/12/2024 COMMENT Alcian blue/PAS stain with matched control supports the above diagnosis. MICROSCOPIC DESCRIPTION Slides are reviewed. GROSS DESCRIPTION Received in fixative is one container labeled with the patient's name and designated Distal esophagus biopsy. The specimen consists of multiple irregular fragments of light cheung soft tissue that in aggregate measure 1.0 x 0.5 x 0.1 cm. The specimen is totally submitted in one cassette. 01/11/2024 TC:2 CPT:18812,02634
== END 2024-01-10 18:47 | disposition home or self-care (01) ==
LOC: ED 16:02 → SDC 17:41 → AC 17:41
PROVIDERS: Emergency Provider Emergency Medicine; PCP Family Medicine; Visit Provider Internal Medicine Gastroenterology
PROC: 0DJ08ZZ Inspection of Upper Intestinal Tract, Via Natural or Artificial Opening Endoscopic (ICD-10-PCS; CPT 43235; principal; 2024-01-10 16:00)
DX: K22.11 Ulcer of esophagus with bleeding (principal); K22.6 Gastro-esophageal laceration-hemorrhage syndrome; K44.9 Diaphragmatic hernia without obstruction or gangrene; I10 Essential (primary) hypertension; Z79.82 Long term (current) use of aspirin; Z79.899 Other long term (current) drug therapy
CPT/HCPCS: 43239; 43255; 88305; 88312; 99283; J7030; A4216; J2405; J3490